=== PATIENT | male | born 1965 | race Caucasian/White ===

== ENCOUNTER 2022-11-09 12:24 | Outpatient (OUT) | payer OTHER, SELFPAY ==
--- NOTE | 2022-11-09 12:45 | XR_ITS ---
The [address] [address] Patient Name: MARKEL ARMENDARIZ MRN: [id number] date: 1965 Sex: M Assigned Patient Location: LAB Current Patient Location: LAB Accession/Order Number: [id number] Exam Date: 11/09/2022 12:35 Report Date: 11/09/2022 13:05 At the request of: MARKIE JARAMILLO Procedure: XR abdomen 1V EXAMINATION: XR abdomen 1V HISTORY: Kidney Stone Z87.442 r COMPARISON: 11/03/2021 FINDINGS: KIDNEY/URETER - RIGHT: 5 mm right pelvic calcification projected over the mid coccyx KIDNEY/URETER - LEFT: No visible renal or ureteral calcifications. PELVIS: No visible ureteral calcifications. Any visible calcifications favor phleboliths. BOWEL: No abnormal dilation or deviation. BONES: No acute abnormality. OTHER: Negative. No abnormal gaseous collections. XR/XR abdomen 1V IMPRESSION: 5 mm right pelvic calcification likely representing progression of a ureteral stone previously observed over the right L4 transverse process Electronically authenticated by: MARLEN RICKS Date: 11/09/2022 13:05
[2022-11-09 15:29] LABS: Prostate Specific Antigen Dx 0.84 ng/mL (<=4.00)
== END 2022-11-09 12:25 | disposition home or self-care (01) ==
LOC: LAB 12:29
PROVIDERS: PCP Family Medicine; Visit Provider Urology
DX: N40.1 Benign prostatic hyperplasia with lower urinary tract symptoms (principal); Z87.442 Personal history of urinary calculi
CPT/HCPCS: 36415; 74018; 84153

== ENCOUNTER 2022-11-17 07:51 | Outpatient (OUT) | payer OTHER, SELFPAY ==
--- NOTE | 2022-11-17 08:07 | XR_ITS ---
The [address] [address] Patient Name: MARKEL ARMENDARIZ MRN: [id number] date: 1965 Sex: M Assigned Patient Location: [place] Current Patient Location: [place] Accession/Order Number: [id number] Exam Date: 11/17/2022 08:20 Report Date: 11/17/2022 09:16 At the request of: MARKIE JARAMILLO Procedure: XR IVP w KUB EXAMINATION: XR IVP w KUB HISTORY: Ureteral Stone N20.1, History Of Kidney Stone Z87.442 COMPARISON: No relevant comparison available. TECHNIQUE: After obtaining patient consent a suture gauger image was obtained followed by injection of 100cc of Omnipaque 300 IV contrast. Immediate nephrographic images were obtained. Corticomedullary and urographic phase images were obtained at 5, 10, 15 and 20 minutes. 15 minute oblique images were also obtained. FINDINGS: KIDNEY/URETER - RIGHT: 6.2 mm calcification distal right ureter. KIDNEY/URETER - LEFT: No visible calcifications. PELVIS: No visible ureteral calcifications. Any visible calcifications favor phleboliths. NEPHROGRAPHIC PHASE: Normal, symmetric size, contour, and orientation. Normal and symmetric time of contrast uptake. CORTICOMEDULLARY: No mass or abnormal appearing medulla, pyramids, or collecting system. UROGRAPHIC PHASE: Normal caliber, course, and number of ureters. BLADDER: Normal size and contour. BOWEL: No abnormal dilation or deviation. BONES: No acute abnormality. OTHER: Negative. No abnormal gaseous collections. XR/XR IVP w KUB IMPRESSION: 6.2 mm distal right ureteral stone with no obstructive uropathy Electronically authenticated by: MARLEN RICKS Date: 11/17/2022 09:16
== END 2022-11-17 07:52 | disposition home or self-care (01) ==
LOC: FL 11-18 08:00
PROVIDERS: PCP Family Medicine; Visit Provider Urology
DX: N20.1 Calculus of ureter (principal); Z87.442 Personal history of urinary calculi
CPT/HCPCS: 74400; Q9967

== ENCOUNTER 2022-11-25 09:47 | Outpatient (OUT) | payer OTHER, SELFPAY ==
--- NOTE | 2022-11-25 09:56 | ECG_ITS ---
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
--- NOTE | 2022-11-25 10:28 | P.GSHP_ITS ---
History of Present Illness History of Present Illness Chief complaint: Right Ureteral Stone Narrative: Patient presents for preadmission testing. Please see HPI from Dr. Muir dated 11/11/2022. Review of Systems ROS Narrative Please see ROS from Dr. Muir dated 11/11/2022. [facility] Medical History (Updated 11/25/22 @ 10:15 by Aida Dunn NP) Surgical History (Updated 11/25/22 @ 10:14 by Aida Dunn NP) Family History (Updated 11/25/22 @ 10:14 by Aida Dunn NP) Other Family history of COPD (chronic obstructive pulmonary disease) Family history of coronary artery disease Family history of heart disease Family history of lung cancer Family history of prostate cancer Family history of stroke Social History (Updated 11/25/22 @ 10:09 by Aida Dunn NP) Within the past year, how often did you have a drink containing alcohol: monthly or less Smoking status: Never smoker Non-prescribed substance use: denies use 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 Highest level of school completed/degree received: Associate degree: occupational, technical, vocational program Meds Home Medications and Allergies Home Medications Medication Instructions Recorded Confirmed Type evolocumab 140 mg/mL subcutaneous 140 mg subcut .every 2 weeks 11/25/22 11/25/22 History pen injector (Geovanni Pond) tamsulosin 0.4 mg capsule 0.4 mg PO Q24H 11/25/22 11/25/22 History zolpidem 10 mg tablet 10 mg PO QPM 11/25/22 11/25/22 History Allergies Allergy/AdvReac Type Severity Reaction Status Date / Time No Known Drug Allergies Allergy Verified 11/25/22 10:06 Exam Narrative Exam Narrative: Constitutional: Awake, alert, comfortable, well-appearing, nontoxic, interactive, vital signs as charted Head: Normocephalic, atraumatic Neck: Supple, normal appearance, normal range of motion, no meningeal signs, no lymphadenopathy Respiratory: No respiratory distress, breath sounds clear Cardiovascular: Regular rate and rhythm, strong and regular heart tones Abdomen: Nontender, normal bowel sounds, soft, no CVA tenderness Musculoskeletal: Normal gait, no swelling or edema Skin: No rashes or induration, no lesions, only visible skin inspected Neuro: No neurological deficits, normal sensation Psychiatric: Oriented ?3, normal affect Assessment and Plan Assessment and Plan (1) Ureteral stone: Plan Cystoscopy, right retrograde, right ureteroscopy, holmium laser, possible right stent placement scheduled with Dr. Muir 12/08/2022.
[2022-11-25 10:57] LABS: Basophils Absolute Auto 0.1 10^3/uL (0.0-0.1); Basophils Percent Auto 1.1 % (0.2-2.0); Eosinophils Absolute Auto 0.1 10^3/uL (0.0-0.7); Eosinophils Percent Auto 1.3 % (0.9-7.0); Hematocrit 44.8 % (42.0-54.0); Immature Granulocytes Abs Auto 0.01 10^3/uL (0.00-0.03); Immature Granulocytes Pct Auto 0.2 % (0.0-0.5); Lymphocytes Absolute Auto 1.2 10^3/uL (1.2-3.8); Lymphocytes Percent Auto 25.1 % (20.5-60.0); Mean Corpuscular HGB Conc 33.5 g/dL (29.9-35.2); Mean Corpuscular Hemoglobin 29.3 pg (25.9-34.0); Mean Corpuscular Volume 87.5 fL (80.0-94.0); Mean Platelet Volume 9.7 fL (9.5-13.5); Monocytes Absolute Auto 0.4 10^3/uL (0.3-0.8); Neutrophils Percent Auto 64.3 % (43.0-75.0); Platelet Count 205 10^3/uL (150-450); Red Blood Count 5.12 10^6/uL (4.70-6.10); Red Cell Distribution Width 12.2 % (11.0-15.0); White Blood Count 4.6 10^3/uL (4.0-11.0)
[2022-11-25 11:02] LABS: Anion Gap 8.6; BUN Creatinine Ratio 14.4; Calcium 8.7 mg/dL (8.5-10.1); Carbon Dioxide 31.8 mmol/L (21.0-32.0); Chloride 105 mmol/L (98-107); Estimated GFR (African America >60 (>=60); Estimated GFR (Non-African Ame >60 (>=60); Glucose 116 mg/dL (74-106); Potassium 4.4 mmol/L (3.5-5.1); Sodium 141 mmol/L (136-145)
[2022-11-25 11:22] LABS: INR 1.13; Prothrombin Time 11.9 sec (9.0-11.6)
== END 2022-11-25 09:48 | disposition home or self-care (01) ==
LOC: PST 09:48
PROVIDERS: PCP Family Medicine; Visit Provider Urology
DX: Z01.810 Encounter for preprocedural cardiovascular examination (principal); Z01.812 Encounter for preprocedural laboratory examination; N20.1 Calculus of ureter; E78.5 Hyperlipidemia, unspecified
CPT/HCPCS: 80048; 85025; 85610; 85730; 93005; G0463

== ENCOUNTER 2022-12-08 08:23 | Day surgery (SDC) | payer OTHER, SELFPAY ==
[2022-11-25 10:21] VITALS: BP 107/69; PULSE 63; RESP 18; TEMP 36.3; O2SAT 96; BMI 31.9
[2022-12-08] VITALS (15 sets, daily range): BP systolic 125–153; BP diastolic 75–96; PULSE 66–90; RESP 10–16; TEMP 36.1–36.3; O2SAT 94–98; BMI 31.8
[2022-12-08] MEDS: LACTATED RINGER'S SOLUTION 1,000 ML 50 ML IV ×2 (08:44→10:40)
[2022-12-08] MEDS: CEFAZOLIN SODIUM/DEXTROSE,ISO 1 GM/50 ML IV.SOLN IV (10:02)
[2022-12-08] MEDS: IOHEXOL 240 MG/ML - 50 ML VIAL INJ (10:42)
--- NOTE | 2022-12-08 10:58 | PM.URSON ---
Urology Surgery Operative Note Operative Note Procedure Date: 12/08/22 Time Out Performed: yes Pre-op Diagnosis: right distal ureteral calculus Post-op Diagnosis: same as pre-op Procedures performed: #1. Cystoscopy. #2. Right rigid ureteral dilation. #3 right ureteroscopy. #4. Holmium laser lithotripsy of large right ureteral calculus. #5. Stone fragments basket extraction. #6. Placement of 6 Bhutanese variable length right ureteral stent Anesthesia: General-LMA Primary Surgeon: Swapnil Muir Complications: none Estimated blood loss (mL): 5 Findings: large right distal ureteral calculus Specimens: right ureteral calculus fragments Drains: 6 Bhutanese variable length right ureteral stent Indications for Procedures: this gentleman was found to have a 5-6 mm right distal ureteral calculus. It is nonobstructing and not causing pain. He now presents for cystoscopy, ureteroscopy, laser and stent placement. He has signed an informed consent after all risks were explained. Detailed description of Procedure: The patient was brought to the operating room and placed on the operating room table in the supine position. SCDs were placed on the lower extremities and turned on and functioning during the entire case. Timeout was done by all parties in the room. We all agreed upon the patient's identification and the planned procedures for this patient. Genn. anesthesia was then administered. The patient was then repositioned into the modified dorsal lithotomy position. All pressure points were satisfactorily padded. Genitalia were sterilely prepped and draped in usual fashion.I started by passing a 22 Bhutanese Olympus cystoscope per urethra and into the bladder. The anterior urethra was normal. The prostatic urethra showed bilobar hypertrophy and a high median lobe. Panendoscopy in the bladder showed no evidence of any stones or tumors. While using fluoroscopy I could see the stone at the S3 level. I then passed a Glidewire through the scope and guided into the ureter and up beyond the stone into the kidney without difficulty. 8 and 10 Bhutanese rigid dilators were used for the distal ureter. Cystoscope was removed. Ureteroscope was passed adjacent to the wire through the urethra into the bladder and into the right ureter. I was able to get right to the stone. I then used a 365 ? holmium laser fiber. I made contact with the stone and did laser lithotripsy at 6 W continuously. The stone was fragmented into several pieces. A 0 tip nitinol basket was used to extract pieces and dumped them in the base of the bladder. Numerous trips up-and-down the ureter were done to get all stone pieces removed from the ureter. The ureteroscope was removed. I passed the cystoscope back into the bladder after removing the wire. I then used a 8 Bhutanese cone-tipped catheter and did a right retrograde pyelogram. This showed that the ureter was not duplicated until it was within the renal pelvis. I then passed a Glidewire through the scope and into the ureter and guided up into the renal pelvis. I then passed a 6 Bhutanese variable length ureteral stent over the wire and into the kidney. The wire was removed and there were good curls in the kidney and in the bladder. The bladder was drained of its contents and the scope was then removed. He was then transferred [facility] and wheeled to PACU in stable condition. He'll be discharged to home later today with a prescription for Vesicare 10 mg daily and Keflex 500 mg daily. We'll get the stent out in one to 2 weeks in the office.
--- NOTE | 2022-12-08 11:12 | PC.NURSE ---
Patient states he doesn't have pain sitting there only when he urinates and he states it valladares.
[2022-12-15 16:12] LABS: Calcium Oxalate Monohydrate 100 % (.)
== END 2022-12-08 11:56 | disposition home or self-care (01) ==
PROVIDERS: PCP Family Medicine; Visit Provider Urology
PROC: (CPT 52356; principal; 2022-12-08 09:35)
DX: N20.1 Calculus of ureter (principal); Z79.899 Other long term (current) drug therapy; N40.1 Benign prostatic hyperplasia with lower urinary tract symptoms; E78.5 Hyperlipidemia, unspecified; R39.11 Hesitancy of micturition; R35.1 Nocturia; Z80.42 Family history of malignant neoplasm of prostate; Z87.442 Personal history of urinary calculi; N39.43 Post-void dribbling; R31.29 Other microscopic hematuria
CPT/HCPCS: 52356; 36415; 74420; 82365; 99999; C1874; J2704; Q9966

== ENCOUNTER 2023-02-10 10:24 | Outpatient (OUT) | payer OTHER, SELFPAY ==
[2023-02-10 10:52] LABS: Basophils Absolute Auto 0.1 10^3/uL (0.0-0.1); Basophils Percent Auto 0.9 % (0.2-2.0); Eosinophils Absolute Auto 0.1 10^3/uL (0.0-0.7); Eosinophils Percent Auto 1.7 % (0.9-7.0); Hematocrit 46.1 % (42.0-54.0); Hemoglobin 15.6 g/dL (14.0-18.0); Immature Granulocytes Abs Auto 0.01 10^3/uL (0.00-0.03); Immature Granulocytes Pct Auto 0.2 % (0.0-0.5); Lymphocytes Absolute Auto 1.3 10^3/uL (1.2-3.8); Lymphocytes Percent Auto 23.7 % (20.5-60.0); Mean Corpuscular HGB Conc 33.8 g/dL (29.9-35.2); Mean Corpuscular Hemoglobin 29.3 pg (25.9-34.0); Mean Corpuscular Volume 86.7 fL (80.0-94.0); Mean Platelet Volume 10.3 fL (9.5-13.5); Monocytes Absolute Auto 0.4 10^3/uL (0.3-0.8); Monocytes Percent Auto 8.3 % (1.7-12.0); Neutrophils Absolute Auto 3.4 10^3/uL (1.4-6.5); Neutrophils Percent Auto 65.2 % (43.0-75.0); Platelet Count 204 10^3/uL (150-450); Red Blood Count 5.32 10^6/uL (4.70-6.10); White Blood Count 5.3 10^3/uL (4.0-11.0)
[2023-02-10 11:09] LABS: Alanine Aminotransferase 48 U/L (16-63); Albumin Globulin Ratio 1.2; Albumin Level 4.1 g/dL (3.4-5.0); Alkaline Phosphatase 68 U/L (46-116); Anion Gap 9.4; Aspartate Amino Transferase 26 U/L (15-37); Bilirubin Total 0.8 mg/dL (0.2-1.0); Calcium 8.8 mg/dL (8.5-10.1); Carbon Dioxide 30.8 mmol/L (21.0-32.0); Chloride 102 mmol/L (98-107); Chol HDL Ratio 4.2; Cholesterol 170 mg/dL (<=200); Estimated GFR (African America >60 (>=60); Estimated GFR (Non-African Ame >60 (>=60); Free T3 2.81 pg/mL (2.18-3.98); Globulin 3.5 g/dL; Glucose 118 mg/dL (74-106); HDL Cholesterol 40 mg/dL (40-60); LDL Cholesterol Calculated 108.2 mg/dL; Potassium 4.2 mmol/L (3.5-5.1); Sodium 138 mmol/L (136-145); Thyroid Stimulating Hormone 3.289 uIU/mL (0.358-3.740); Total Protein 7.6 g/dL (6.4-8.2); Triglycerides 109 mg/dL (<=150); VLDL CHOLESTEROL 21.8 mg/dL
[2023-02-10 11:34] LABS: Estimated Average Glucose 126 mg/dL
[2023-02-10 11:41] LABS: Prostate Specific Antigen Scrn 0.75 ng/mL (<=4.00)
[2023-02-12 14:21] LABS: Insulin 10.6 uIU/mL (2.6-24.9)
== END 2023-02-10 10:25 | disposition home or self-care (01) ==
LOC: LAB 10:26
PROVIDERS: PCP Family Medicine; Visit Provider Family Medicine
DX: Z00.00 Encounter for general adult medical examination without abnormal findings (principal); E78.5 Hyperlipidemia, unspecified; R73.09 Other abnormal glucose; Z12.5 Encounter for screening for malignant neoplasm of prostate
CPT/HCPCS: 36415; 80053; 80061; 83036; 83525; 84436; 84443; 84481; 84550; 85025; G0103

== ENCOUNTER 2023-07-11 12:22 | Outpatient (OUT) | payer OTHER, SELFPAY ==
--- NOTE | 2023-07-11 12:26 | XR_ITS ---
[address] [address] Patient Name: MARKEL ARMENDARIZ MRN: [id number] date: 1965 Sex: M Assigned Patient Location: [facility] Current Patient Location: [facility] Accession/Order Number: [id number] Exam Date: 07/11/2023 12:34 Report Date: 07/11/2023 12:58 At the request of: MARKIE JARAMILLO Procedure: XR abdomen 1V EXAMINATION: XR abdomen 1V HISTORY: N20.0 calculus of kidney COMPARISON: 11/09/2022 FINDINGS: KIDNEY/URETER - RIGHT: No visible renal or ureteral calcifications. KIDNEY/URETER - LEFT: No visible renal or ureteral calcifications. PELVIS: No visible ureteral calcifications. Any visible calcifications favor phleboliths. BOWEL: No abnormal dilation or deviation. BONES: No acute abnormality. OTHER: Negative. No abnormal gaseous collections. XR/XR abdomen 1V IMPRESSION: No definite urinary tract calculi Electronically authenticated by: MARLEN RICKS Date: 07/11/2023 12:58
--- OUTSIDE RECORDS SUMMARY | 2023-07-11 12:33 | XMS_ITS | CCD ---
Author Organization [facility] Care Team Providers Care City Planner Name Role Phone Isaiah Paul Primary Care Physician MICHELLE, DR COLON Admitting Unavailable ANNY, DR COLON Attending Unavailable ANNY, DR COLON Primary Care Unavailable ANNY, DR COLON Consulting Unavailable HOY, DR COLON Admitting Unavailable HOY, DR COLON Attending Unavailable HOY, DR COLON Primary Care Unavailable HOY, DR COLON Consulting Unavailable MUIR, DR ADEN Admitting Unavailable MUIR, DR ADEN Attending Unavailable HOY, DR COLON Primary Care Unavailable MUIR, DR ADEN Consulting Unavailable ZIEBER, DR ALEXANDRA Tapia Consulting Unavailable MD Cuong Reddy Attending Provider [phone] MD Isaiah Paul Primary Care Provider [phone] Isaiah Paul Primary Care Unavailable Cuong Reddy Attending Unavailabl e BarryCuong hood Admitting Unavailabl e RUSHER, MODESTO S Referring Unavailable RUSHER, MODESTO S Attending Unavailable ISAIAH PAUL Referring Unavailable RUSHER, MODESTO S Attending Unavailable MUIRSwapnil Attending Unavailable MUIR, Swapnil Tapia Attending Unavailable MUIR, Swapnil Tapia Referring Unavailable MUIR, Swapnil Tapia Admitting Unavailable MUIRSwapnil Attending Unavailable MUIR, Swapnil Tapia Attending Unavailable MUIR, Swapnil Tapia Attending Unavailable MUIR, Swapnil Tapia Attending Unavailable Allergies Allergy Classification Reported Allergen(s) Allergy Type Date of Onset Reaction(s) Facility (3 sources) Pollen; Translations: [Pollen] Allergy to substance Unknown (qualifier value) [facility] (1 source) No Known Medication Allergies; Translations: [No Known Medication Allergies] Propensity to adverse reactions (disorder) [facility] Repository NEGATED: Highlighted row has been ruled out! (1 source) Drug allergy [facility] NEGATED: Highlighted row has been ruled out! (1 source) Drug allergy [facility] Medications Current Medications Medication Drug Class(es) Dates Sig (Normalized) Sig (Original) Aged Garlic (1 source) Start: 05-09-2022 take 600 mg by mouth once daily Aged Garlic Active 600 MG PO Daily May 09, 2022 12:00am F4-Wyvyf-O10-Coffe e-Phosphatid (Neuriva Plus) 0.85 mg-200 mcg-1.2 mcg Tablet,Chewable (1 source) Start: 05-09-2022 take 1 tablet by mouth once daily J7-Uskwp-N98-Coffe e-Phosphatid (Neuriva Plus) 0.85 mg-200 mcg-1.2 mcg Tablet,Chewable Active 1 TAB PO Daily May 09, 2022 12:00am Berberine-Herbal Comb No.18 (1 source) Start: 05-09-2022 take 1 capsule by mouth three times daily Berberine-Herbal Comb No.18 Active 1 CAP PO Three times daily May 09, 2022 12:00am 1 ml evolocumab 140 mg/ml auto-injector (3 sources) PCSK9 Inhibitor Start: 05-09-2022 inject 140 mg by subcutaneous injection every week Evolocumab (Repatha Sureclick) 140 mg/mL pen injector Active 140 MG SUBCUT every week May 09, 2022 12:00am Start: 10-01-2018 Repatha 140 mg /mL subcutaneous solution 140 mg, SubCutaneous Start Date: 10/01/18 Status: Ordered Ydocbznwukiq-Lyejhqpp-Awnaxp (1 source) Start: 05-09-2022 take 1 tablet by mouth once daily Fmexipkjbxxa-Oxbfheqb-Ghzjxi Active 1 TAB PO Daily May 09, 2022 12:00am tamsulosin hydrochloride 0.4 mg oral capsule (3 sources) alpha-Ad renergic Karie Start: 11-08-2021 take 0.4 mg by mouth at bedtime Tamsulosin Active 0.4 MG PO Bedtime May 09, 2022 12:00am thioctic acid 300 mg oral capsule (1 source) Start: 05-09-2022 take 300 mg by mouth twice daily Alpha Lipoic Acid Active 300 MG PO Twice daily May 09, 2022 12:00am Tumeric (1 source) Start: 05-09-2022 take 1.44 g by mouth twice daily Tumeric Active 1.44 GM PO Twice daily May 09, 2022 12:00am ubidecarenone 200 mg oral capsule (1 source) Start: 05-09-2022 Coenzyme Q10 (Co Q-10) 200 m g Capsule Active 200 MG PO Daily May 09, 2022 12:00am Ultimet 16 Strai Probiotic (1 source) Start: 05-09-2022 Ultimet 16 Strai Probiotic Active 3.2 billion cells PO Daily May 09, 2022 12:00am Vit G-A-P8-Uh-G01-JlhabY49-Eiyfm-Lcuhqt (1 source) Start: 05-09-2022 take 1 tablet by mouth once daily Vit H-B-C5-Yu-T86-QlmjeX47-Kckvv-Wonksg Active 1 TAB PO Daily May 09, 2022 12:00am zolpidem tartrate 10 mg oral tablet (3 sources) gamma-Am inobutyr ic Acid-erg ic Agonist Start: 05-09-2022 take 10 mg by mouth at bedtime Zolpidem Active 10 MG PO Bedtime May 09, 2022 12:00am Start: 09-28-2020 zolpidem Once a day (at bedtime), Refills(s) 0 Start Date: 09/28/20 Status: Ordered Problems Problem Classification Problem Date Documented Date Episodic/Chronic Calculus of urinary tract (9 sources) History of calculus of kidney; Translations: [Personal history of urinary calculi] Onset: 11-05-2021 Episodic Disorders of lipid metabolism (2 sources) Hyperlipidemia 10-01-2018 Chronic Genitourinary symptoms and ill-defined conditions (2 sources) Post-micturition incontinence 09-30-2019 Chronic Genitourinary symptoms and ill-defined conditions (8 sources) Delay when starting to pass urine; Translations: [Microscopic hematuria] 08-28-2018 Episodic Hyperplasia of prostate (5 sources) Benign prostatic hypertrophy with outflow obstruction; Translations: [Benign prostatic hyperplasia with lower urinary tract symptoms] Onset: 11-05-2021 Chronic Other male genital disorders (2 sources) Impotence 10-01-2018 Chronic Other screening for suspected conditions (not mental disorders or infectious disease) (7 sources) Encounter for screening for malignant neoplasm of prostate; Translations: [Elevated prostate specific antigen [PSA]] Onset: 11-03-2021 Episodic Residual codes; unclassified (2 sources) Family history of cancer; Translations: [Family history of malignant neoplasm of prostate] Onset: 11-08-2021 Episodic Residual codes; unclassified (2 sources) Family history of prostate cancer 11-08-2021 Episodic Unclassified (1 source) Encounter for screening for malignant neoplasm of colon; Translations: [Encounter for screening for malignant neoplasm of colon] Onset: 05-09-2022 Results Test Name Value Interpretation Reference Range Facility MR FOOT RIGHT WO IV CONTRAST on 01-23-2023 MR FOOT RIGHT WO IV CONTRAST EXAM: MR FOOT RIGHT WO IV CONTRAST HISTORY: Chronic heel pain TECHNIQUE: Multisequence multiplanar MRI of the hindfoot was performed without contrast COMPARISON: None available at time of interpretation. FINDINGS: Mild Achilles tendinosis. Thickening of the medial cord plantar fascia with thickness measuring up to 8 mm. Mild soft tissue edema adjacent to the medial cord plantar fascia and mild bone marrow edema of the calcaneus at its attachment. Small plantar calcaneal enthesophyte. The tibialis posterior, flexor hallucis longus, and flexor digitorum longus tendons are intact. No space-occupying lesion within the tarsal tunnel. Focal split tear of peroneus brevis tendon along the inferior tip of the lateral malleolus. Mild peroneus longus tendinosis. Extensor tendons are intact. The anterior and posterior tibiofibular ligaments, anterior and posterior talofibular ligaments, and calcaneofibular ligament are intact. Superficial and deep fibers of the deltoid ligament are intact. Spring ligament is intact. Sinus tarsi fat is preserved. Mild degenerative changes of the midfoot. No ankle joint effusion. No evidence of fracture or stress reaction of the visualized bones. IMPRESSION: Findings compatible with planter fasciitis. Mild Achilles tendinosis. Focal split tear of peroneus brevis tendon along the inferior tip of the lateral malleolus. ELECTRONICALLY SIGNED BY: DO Get Flores Not Available Consent for Procedure/Surger yon 12-20-2022 Consent for Procedure/Surgery [id number] #1.00TIFF Normal [facility] Consent for Treatmenton 12-11 Consent for Treatment [id number] #1.00TIFF Normal [facility] IntraOperative Documentson 1 IntraOperative Documents [id number] #1.00TIFF Normal [facility] Main OR Intraoperative Recor don 12-20-2022 Main OR Intraoperative Record IntraOp Document Type FTURO Summary Primary Physician: Swapnil MUIR MD Finalized Date/Time: 12/20/22 09:00:22 Pt. Name: MARKEL ARMENDARIZ /Sex: 1965 Male Med Rec #: [id number] Physician: Swapnil MUIR MD Financial #: [id number] Pt. Type: O Room/Bed: / Admit/Disch: 12/20/22 07:42:04 - Institution: Case Times FTURO Entry 1 Patient Times In Room 12/20/22 08:34:00 Out Room 12/20/22 08:57:00 Procedure Times Start 12/20/22 08:50:00 Stop 12/20/22 08:53:00 Anesthesia Times Last Modified By: Iram Silva RN 12/20/22 08:58:24 Case Attendance FTURO Entry 1 Entry 2 Entry 3 Case Attendee Swapnil MUIR MD WEB SERVICES DEVELOPER, Iram Silva RN, Iram Abdalla Role Performed Surgeon - Primary Scrub - Primary Drop Wire Stringer - Primary Time In 12/20/22 08:34:00 12/20/22 08:34:00 12/20/22 08:34:00 Time Out 12/20/22 08:57:00 12/20/22 08:57:00 12/20/22 08:57:00 Procedure CYSTOSCOPY LOCAL WITH CYSTOSCOPY LOCAL WITH CYSTOSCOPY LOCAL WITH STENT REMOVAL(Right) STENT REMOVAL(Right) STENT REMOVAL(Right) Comments Last Modified By: Shira SIMMONS, Iram Silva RN, Iram Pederson RN 12/20/22 08:58:25 12/20/22 08:58:25 12/20/22 08:58:25 Surgical Procedures FTURO Entry 1 Procedure Description Procedure CYSTOSCOPY LOCAL WITH Modifiers Right STENT REMOVAL Surgeon Description CYSTOSCOPY WITH RIGHT STENT REMOVAL Primary Procedure Yes Primary Surgeon Swapnil MUIR MD Start 12/20/22 08:50:00 Stop 12/20/22 08:53:00 Anesthesia Type Local Surgical Service Urology Wound Class 2 - Clean-Contaminated Last Modified By: Iram Silva RN 12/20/22 08:58:29 General Case Data FTURO Pre-Care Text: Classifies surgical wound, implements aseptic technique, initiates traffic control Entry 1 Case Information OR URO 1 FT Case Level None Wound Class 2 - Clean-Contaminated Specialty Urology Preop Diagnosis STATUS POST RIGHT STENT Postop Same As Preop Yes PLACEMENT Postop Diagnosis STATUS POST RIGHT STENT Outcomes Met? Yes PLACEMENT Last Modified By: Iram Silva RN 12/20/22 08:36:04 Post-Care Text: The patient is free from signs and symptoms of infection EU IntraOp - FTURO Pre-Care Text: Implements protective measures prior to operative or invasive procedure, confirms identity before the operative or invasive procedure, verifies operative procedure, surgical site, and laterality Entry 1 EU Perioperative Protocols Procedure(s) CYSTOSCOPY LOCAL WITH Patient Identity Birthday, ID Band STENT REMOVAL(Right) Verified (select at Check, Patient least 2): Participation Consents / H and P HandP, Surgery/Procedure Operative Site Present Verified Consent Marking Verified Surgical Site Yes Laterality Verified Yes Verified Procedure Verified Yes Correct Patient Yes Position Verified Availability Equipment, Medication Time Out Swapnil MUIR MD, Verified (If Participants Iram Dietz CST Applicable) Shira Carolina RN, Kimberly Y Time Out Complete 12/20/22 08:36:00 Allergies Reviewed? Yes Allergies Reviewed Self/Patient With Body Position Supine Prep Area PENIS Prep Agents Betadine Solution Skin. Condition Dry, Warm, Unable to Description UNABLE TO VISUAALIZE Visualize DUE TO PATIENT PARTIALLY CLOTHED Additional None Specimens Collected Vitals - EU Blood Pressure 138/78 Pulse 86 bpm Respirations 16 br/min SPO2 96 % EBL 0 IandO - EU Total Intake 0 Total Output 0 Outcomes Met? Yes Last Modified By: Iram Silva RN 12/20/22 08:38:05 Post-Care Text: The patient is free from signs and symptoms of injury caused by extraneous objects Sign Out FTURO Entry 1 Before Patient Leaves OR Nurse verbally Yes Nurse verbally Yes confirms with the confirms with the team the name of team that the procedure(s) instrument, sponge, recorded and needle counts are correct (or N/A) Nurse verbally n/a Nurse verbally Yes confirms with the confirms with the team how the team whether there specimen is labeled are any equipment (including patient problems to be name), if applicable addressed Sign Out Complete 12/20/22 08:53:00 Last Modified By: Iram Silva RN 12/20/22 08:59:55 Case Comments Finalized By: Iram Silva RN Document Signatures Signed By: Iram Silva RN 12/20/22 09:00 Normal [facility] Main OR Preoperative Recordo n 12-20-2022 Main OR Preoperative Record Holding Area Document Type FTURO Summary Primary Physician: Swapnil MUIR MD Finalized Date/Time: 12/20/22 08:35:03 Pt. Name: DERRELLNildaMARKEL./Sex: 1965 Male Med Rec #: [id number] Physician: Swapnil MUIR MD Financial #: [id number] Pt. Type: O Room/Bed: / Admit/Disch: 12/20/22 07:42:04 - Institution: Case Times Holding FTURO Pre-Care Text: Verifies consent for planned procedure, identifies individual values and wishes concerning care, includes family members in perioperative teaching Secures patient's records' belongings, and valuables, maintains patient's dignity and privacy, and maintains patient confidentiality Entry 1 In Holding 12/20/22 08:02:00 Outcomes Met? Yes Last Modified By: Yuko Keane LPN 12/20/22 08:03:13 Post-Care Text: The patient participates in decisions affecting his or her perioperative plan of care The patient's right to privacy is maintained Surgery Checklist FTURO Entry 1 Patient Birthday, ID Band Procedure Surgical Consent, With Identification: Check, Patient Verification: Patient Participation NPO after Midnight: n/a Date/Time: 12/20/22 08:05:00 Personal Items: Glasses, Jewelry Personal Items glasses, wedding band, Comment: watch Complaints of Pain: Yes Pain Comment: slight discomfort right flank Skin Integrity Intact, [place], Warm, & Dry Vitals - EU Blood Pressure 138/78 Pulse 86 bpm Respirations 16 br/min SPO2 96 % RN Reviewed Yes Last Modified By: Iram Silva RN 12/20/22 08:35:01 General Comments: Temp 98.1 Finalized By: Iram Silva RN Document Signatures Signed By: Yuko Keane LPN 12/20/22 08:08 Iram Silva RN 12/20/22 08:35 Normal [facility] Operative Reporton 3 Operative Report Patient: MARKEL ARMENDARIZ Age: 57 years Sex: Male : 1965 Associated Diagnoses: None Author: Swapnil MUIR MD Procedure Operative Information Details: Date/ Time: 12/20/2022 08:46:00. Pre-Op Dx: Foreign Body in Bladder - T19.1XXA. Post-Op Dx: Same. Anesthesia Type: Local. Procedure: Local Cystoscopy with Stent Removal. Complications: None. Risks/Benefits/Infor med Consent: Surgical risks, benefits, details of the procedure have been explained to the patient, Full informed consent has been obtained. Intraoperative Information Prepped: The patient was placed in supine position, The patient was prepped with the Betadine solution. Anesthesia: 2% Xylocaine Jelly per urethra. Procedure: Cystoscopy and Right Stent Removal, The flexible Cystoscope was passed in retrograde fashion into the bladder without difficulty, The bladder was viewed in entirety and found to be without tumors or stones, Mild inflammation was seen surrounding the orifice with the stent seen protruding from it, The stent was then grasped and removed in its entirety. Specimens Removed: None. Devices Implanted: None. Postoperative Information Discharge: The patient tolerated the procedure well and was subsequently discharged home. Normal [facility] Comment on above: Result Comment: Elec tronically Signed By: Swapnil MUIR MD\.br\Date and Time Signed: 12/20/22 08:47 EDT Lab Reportson 12-19-2022 Lab Reports [id number] #1.00TIFF Normal [facility] Formson 12-16-2022 Forms [id number] #1.00TIFF [facility] Insurance Correspondenceon 1 Insurance Correspondence [id number] 2#1.00CD:127 [facility] Operative Reporton Operative Report [id number] #1.00CD:127 [facility] Pre-Certification Formon Pre-Certification Form [id number] #1.00CD:127 [facility] Lab Reportson 11-28-2022 Lab Reports [id number] #1.00CD:127 [facility] Insurance Correspondenceon 0 11-25-2022 Insurance Correspondence [id number] 8#1.00CD:127 [facility] Consent for Procedure/Surger yon 11-22-2022 Consent for Procedure/Surgery [id number]# 1.00CD:127 [facility] Lab Reportson 11-20-2022 Lab Reports [id number] #1.00CD:127 [facility] RAD - MISCon 11-20-2022 RAD - MISC [id number]# 1.00CD:127 [facility] RAD - MISC [id number] #1.00CD:127 [facility] Lab Reportson 11-14-2022 Lab Reports [id number] #1.00CD:127 [facility] RAD - MISCon 11-14-2022 RAD - MISC [id number] #1.00CD:127 Normal [facility] Ambulatory Visit Summaryon 0 11-11-2022 Ambulatory Visit Summary MARKEL ARMENDARIZ :1965 Visit Date:11/11/2022 Ambulatory Visit Instructions Your Diagnosis BPH with urinary obstruction Ureteral stone History of kidney stones Family history of prostate cancer Tests Performed Urnls Dip Stick Auto w/o Microscopy POC 13243 XR IVP -- Results Pending -- Please visit your patient portal for your results or contact your primary care physician. Your Care Team Attending Physician - Swapnil MUIR MD Primary Care Physician - Isaiah Paul MD This Is Your Medications List tamsulosin (Flomax 0.4 mg Cap) Contact prescribing physician if questions or concerns evolocumab (Repatha 140 mg/mL subcutaneous solution) zolpidem Procedures Performed ESWL - Extracorporeal shockwave lithotripsy for renal calculus (01/08/2015), Lithotripsy using laser (04/21/2005), Cystoscopy (11/03/2004), Hernia repair, Thumb surgery. Discharge Vitals Heart Rate (Peripheral) 68 Respiratory Rate 16 Blood Pressure 132/74 Height 180 cm Height 71 in Weight 106.2 kg Weight 233.64 lb BMI 32.78 What to do next You Need to Schedule the Following Appointments Follow Up with CLINT TIM, JULISSA Rehman When: Comments: Will call pt w/ IVP results. Where: [facility] [address] , [place] [address]- Medications What How Much When Instructions Unchanged tamsulosin (Flomax 0.4 mg Cap) 1 Capsules By Mouth Every day Take one tab qhs daily Unchanged evolocumab (Repatha 140 mg/ mL subcutaneous solution) 140 Milligram Subcutaneous Contact prescribing physician if questions or concerns Unchanged zolpidem Once a day (at bedtime) Contact prescribing physician if questions or concerns Test Results Urnls Dip Stick Auto w/o Microscopy POC 94887 (11/11/2022) Bilirubin Urine Dipstick - Negative Blood Urine Dipstick - Negative Glucose Urine Dipstick - Negative Ketones Urine Dipstick - Negative Leukocytes Urine Dipstick - Negative Nitrite Urine Dipstick - Negative Protein Urine Dipstick - Negative Specific [place] Urine Dipstick - 1.010 Urine Appearance Urine Dipstick - Clear Urine Color Urine Dipstick - Yellow Urobilinogen Urine Dipstick - Normal 0.2-1 EU/dl pH Urine Dipstick - 6 Allergies No Known Medication Allergies Pollen (Unknown) Problems Ongoing - Any problem that you are currently receiving treatment for. BPH with urinary obstruction Calciuria Family history of prostate cancer History of kidney stones History of renal stone Hyperlipidemia Impotence Microscopic hematuria Nocturia Post-void dribbling Ureteral stone Urinary hesitancy Education Materials Dietary Guidelines to Help Prevent Kidney Stones Kidney stones are deposits of minerals and salts that form inside your kidneys. Your risk of developing kidney stones may be greater depending on your diet, your lifestyle, the medicines you take, and whether you have certain medical conditions. Most people can lower their chances of developing kidney stones by following the instructions below. Your dietitian may give you more specific instructions depending on your overall health and the type of kidney stones you tend to develop. What are tips for following this plan? Reading food labels ? Choose foods with no salt added or low-salt labels. Limit your salt (sodium) intake to less than 1,500 mg a day. ? Choose foods with calcium for each meal and snack. Try to eat about 300 mg of calcium at each meal. Foods that contain 200?500 mg of calcium a serving include: ? 8 oz (237 mL) of milk, calcium-fortifiednon -dairy milk, and calcium-fortifiedfru it juice. Calcium-fortified means that calcium has been added to these drinks. ? 8 oz (237 mL) of kefir, yogurt, and soy yogurt. ? 4 oz (114 g) of tofu. ? 1 oz (28 g) of cheese. ? 1 cup (150 g) of dried figs. ? 1 cup (91 g) of cooked broccoli. ? One 3 oz (85 g) can of sardines or mackerel. Most people need 1,000?1,500 mg of calcium a day. Talk to your dietitian about how much calcium is recommended for you. Shopping ? Buy plenty of fresh fruits and vegetables. Most people do not need to avoid fruits and vegetables, even if these foods contain nutrients that may contribute to kidney stones. ? When shopping for convenience foods, choose: ? Whole pieces of fruit. ? Pre-made salads with dressing on the side. ? Low-fat fruit and yogurt smoothies. ? Avoid buying frozen meals or prepared deli foods. These can be high in sodium. ? Look for foods with live cultures, such as yogurt and kefir. ? Choose high-fiber grains, such as whole-wheat breads, oat bran, and wheat cereals. Cooking ? Do not add salt to food when cooking. Place a salt shaker on the table and allow each person to add his or her own salt to taste. ? Use vegetable protein, such as beans, textured vegetable protein (TVP), or tofu, instead of meat in pasta, casseroles (more content not included)... Normal [facility] Patient Educationon 11-12-19 Patient Education Nephrology Dietary Guidelines to Help Prevent Kidney Stones Kidney stones are deposits of minerals and salts that form inside your kidneys. Your risk of developing kidney stones may be greater depending on your diet, your lifestyle, the medicines you take, and whether you have certain medical conditions. Most people can lower their chances of developing kidney stones by following the instructions below. Your dietitian may give you more specific instructions depending on your overall health and the type of kidney stones you tend to develop. What are tips for following this plan? Reading food labels ? Choose foods with no salt added or low-salt labels. Limit your salt (sodium) intake to less than 1,500 mg a day. ? Choose foods with calcium for each meal and snack. Try to eat about 300 mg of calcium at each meal. Foods that contain 200?500 mg of calcium a serving include: ? 8 oz (237 mL) of milk, calcium-fortifiednon -dairy milk, and calcium-fortifiedfru it juice. Calcium-fortified means that calcium has been added to these drinks. ? 8 oz (237 mL) of kefir, yogurt, and soy yogurt. ? 4 oz (114 g) of tofu. ? 1 oz (28 g) of cheese. ? 1 cup (150 g) of dried figs. ? 1 cup (91 g) of cooked broccoli. ? One 3 oz (85 g) can of sardines or mackerel. Most people need 1,000?1,500 mg of calcium a day. Talk to your dietitian about how much calcium is recommended for you. Shopping ? Buy plenty of fresh fruits and vegetables. Most people do not need to avoid fruits and vegetables, even if these foods contain nutrients that may contribute to kidney stones. ? When shopping for convenience foods, choose: ? Whole pieces of fruit. ? Pre-made salads with dressing on the side. ? Low-fat fruit and yogurt smoothies. ? Avoid buying frozen meals or prepared deli foods. These can be high in sodium. ? Look for foods with live cultures, such as yogurt and kefir. ? Choose high-fiber grains, such as whole-wheat breads, oat bran, and wheat cereals. Cooking ? Do not add salt to food when cooking. Place a salt shaker on the table and allow each person to add his or her own salt to taste. ? Use vegetable protein, such as beans, textured vegetable protein (TVP), or tofu, instead of meat in pasta, casseroles, and soups. Meal planning ? Eat less salt, if told by your dietitian. To do this: ? Avoid eating processed or pre-made food. ? Avoid eating fast food. ? Eat less animal protein, including cheese, meat, poultry, or fish, if told by your dietitian. To do this: ? Limit the number of times you have meat, poultry, fish, or cheese each week. Eat a diet free of meat at least 2 days a week. ? Eat only one serving each day of meat, poultry, fish, or seafood. ? When you prepare animal protein, cut pieces into small portion sizes. For most meat and fish, one serving is about the size of the palm of your hand. ? Eat at least five servings of fresh fruits and vegetables each day. To do this: ? Keep fruits and vegetables on hand for snacks. ? Eat one piece of fruit or a handful of berries with breakfast. ? Have a salad and fruit at lunch. ? Have two kinds of vegetables at dinner. ? Limit foods that are high in a substance called oxalate. These include: ? Spinach (cooked), rhubarb, beets, sweet potatoes, and Vincentian chard. ? Peanuts. ? Potato chips, burundian fries, and baked potatoes with skin on. ? Nuts and nut products. ? Chocolate. ? If you regularly take a diuretic medicine, make sure to eat at least 1 or 2 servings of fruits or vegetables that are high in potassium each day. These include: ? Avocado. ? Banana. ? Raritan, prune, carrot, or tomato juice. ? Baked potato. ? Cabbage. ? Beans and split peas. Lifestyle ? Drink enough fluid to keep your urine pale yellow. This is the most important thing you can do. Spread your fluid intake throughout the day. ? If you drink alcohol: ? Limit how much you use to: ? 0?1 drink a day for women who are not . ? 0?2 drinks a day for men. ? Be aware of how much alcohol is in your drink. In the [place] one drink equals one 12 oz bottle of beer (355 mL), one 5 oz glass of wine (148 mL), or one 1? oz glass of hard liquor (44 mL). ? Lose weight if told by your health care provider. Work with your dietitian to find an eating plan and weight loss strategies that work best for you. General information ? Talk to your health care provider and dietitian about taking daily supplements. You may be told the following depending on your health and the cause of your kidney stones: ? Not to take supplements with vitamin C. ? To take a calcium supplement. ? To take a daily probiotic supplement. ? To take other supplements such as magnesium, fish oil, or vitamin B6. ? Take [id number] and prescription medicines only as told by your health care provider. These include supplements. What foods should I limit? Limit your in (more content not included)... Normal [facility] [place] Urology Office/Clinic Noteon 11-11-2022 Urology Office/Clinic Note Chief Complaint 1yr PSA HPI Staff 1 year f/u with KUB and PSA. Previous dx of BPH with urinary obstruction, hx of kidney stones (ESWL 01/08/15) and family hx of prostate cancer (grandfather). Current PSA done 11/09/22 is 0.84 and previous done 12/17/21 was 0.81. Current KUB done 11/09/22 showed a 5mm right pelvic calcification likely representing progression of a ureteral stone previously observed over the right L4 transverse process. Flomax 0.4mg QD therapy. Denies flank pain. Denies visible blood in urine. Denies urinary complaints with Flomax therapy. History of Present Illness Tests reviewed: reviewed UA, PSA and KUB. I have reviewed the previous health record information and history for this patient from . I have reviewed and verified the staff HPI to be accurate for this encounter. There have been no associated fever, chills, flank pain, or blood in the urine. Denies any urinary infections since last encounter. Review of Systems PHQ Score Initial Depression Screen Score: 0 ROS - Provider Constitutional: denies weight loss, denies hot flashes. Eyes: denies eye problems. Gastrointestinal: denies nausea, denies vomiting. Cardiovascular: denies chest pain or angina. Integumentary: no dryness Musculoskeletal: denies musculoskeletal symptoms. ENMT: denies otolaryngeal symptoms. Respiratory: no shortness of breath. Heme/Lymph: denies easy bleeding tendency, denies easy bruising tendency. Psychiatric: no confusion, no anxiety. Genitourinary: See HPI. Physical Exam Vitals & Measurements HR: 68(Peripheral) RR: 16 BP: 132/74 HT: 71 in HT: 180 cm WT: 106.2 kg WT: 233.64 lb BMI: 32.78 General Appearance: alert, no distress, well nourished, well developed male. Assessment/Plan 1. BPH with urinary obstruction (N40.1: Benign prostatic hyperplasia with lower urinary tract symptoms) PSA 09/24/20 - 1.48 11/03/21 - 0.80 12/17/21 - 0.81 11/09/22 - 0.84 Continues Tamsulosin 0.4mg QD therapy, pt taking at night due to daytime dizziness. Pt states that he has noticed his sinuses being stuffy. Advised that this may be caused by the Flomax. Advised the only way to tell is to stop the Flomax, advised pt to wait to do this bc the Flomax will help him pass his stone. UA today is negative for blood and infection. Discussed PSA levels w/pt, low and stable. Overall doing well with urination and will continue to monitor. Follow up in 1 yr w/PSA. All questions/concerns were discussed. Pt to call the office if he encounters any issues prior. Pt acknowledges understanding. -Will order PSA for 1 yr. 2. Ureteral stone (N20.1: Calculus of ureter) KUB 11/09/22 - 5mm right pelvic calcification likely representing progression of a ureteral stone previously observed over the right L4 transverse process. Pt states he does not have any pain on the Rt, states he felt some slight twinges on the Lt, and denies any blood in his urine. Discussed having a repeat image done due to the placement of the stone. -Will order XR IVP. Will call pt with results. 3. History of kidney stones (Z87.442: Personal history of urinary calculi) S/p Lithotripsy using laser 04/21/05 S/p ESWL 01/08/15 KUB 11/03/21 - no appreciable urinary tract calculi. Pt denies any stone issues since previous encounter. Pt stopped taking Chlorthalidone, states his blood sugar increased when taking medication. Pt aware that is a possible side effect. See #2 4. Family history of prostate cancer (Z80.42: Family history of malignant neoplasm of prostate) Pt states his grandfather. Follow-up With When Contact Information CLINT TIM, JUILSSA Rehman In 1 year [facility] [address], [place] [address]- Additional Instructions: w/ PSA Patient Education Dietary Guidelines to Help Prevent Kidney Stones I, Matilda Torres , personally scribed for Dr. Muir on 11/11/2022 10:44:13. . Documentation recorded by the scribe, Matilda Torres, accurately reflects the services(s) I performed and decisions made by me. Problem List/Past Medical History Ongoing BPH with urinary obstruction Calciuria Family history of prostate cancer History of kidney stones History of renal stone Hyperlipidemia Impotence Microscopic hematuria Nocturia Post-void dribbling Ureteral stone Urinary hesitancy Historical No qualifying data Procedure/Surgical History ESWL - Extracorporeal shockwave lithotripsy for renal calculus (01/08/2015), Lithotripsy using laser (04/21/2005), Cystoscopy (11/03/2004), Hernia repair, Thumb surgery. Medications Flomax 0.4 mg Cap, 0.4 mg= 1 cap(s), Oral, Daily, 3 refills Repatha 140 mg/mL subcutaneous solution, 140 mg, SubCutaneous zolpidem, Once a day (at bedtime) Allergies No Known Medication Allergies Pollen (Unknown) Social History Alcohol - Low Risk, 10/01/2018 Current, Liquor, 1-2 times per year, 10/01/2018 Substa (more content not included)... Normal [facility] Comment on above: Result Comment: Elec tronically Signed By: CLINT TIM, Swapnil Tapia\.br\Date and Time Signed: 11/11/22 10:47 EDT\.br\Electronically Co-Signed By: Matilda Torres\.br\Date and Time Co-Signed: 11/11/22 10:44 EDT INSULINon 12-18-2021 Insulin 7.5 uIU/mL Normal 2.6-24.9 [facility] Comment on above: Performed By: #### I NSULIN #### [facility] [address] [place] [address] Dr. Gabby Park CBC AUTO DIFFon 12-17-2021 BASO # 0.1 103/ul Normal 0.0-0.1 [facility] Comment on above: Performed By: #### C BC #### [facility] [address] [place] [address] Dr. Gabby Park Basophils/100 WBC (Bld) 1.0 % Normal 0.2-2.0 [facility] Comment on above: Performed By: #### C BC #### [facility] [address] [place] [address] Dr. Gabby Park EO # 0.1 103/ul Normal 0.0-0.7 [facility] Comment on above: Performed By: #### C BC #### [facility] [address] [place] [address] Dr. Gabby Park Eosinophils/100 WBC (Bld) 2.2 % Normal 0.9-7.0 [facility] Comment on above: Performed By: #### C BC #### [facility] [address] [place] [address] Dr. Gabby Park Erythrocyte distribution width (RBC) [Ratio] 12.4 % Normal 11.0-15.0 [facility] Comment on above: Performed By: #### C BC #### [facility] [address] [address] [address] Gabby Park Hematocrit (Bld) [Volume fraction] 44.7 % Normal 42.0-54.0 [facility] Comment on above: Performed By: #### C BC #### [facility] [address] [address] [address] Gabby Park Hemoglobin (Bld) [Mass/Vol] 15.4 g/dL Normal 14.0-18.0 [facility] Comment on above: Performed By: #### C BC #### [facility] [address] [place] [address] Dr. Gabby Park IG # 0.01 10e3/ul Normal 0.00-0.03 [facility] Comment on above: Performed By: #### C BC #### [facility] [address] [place] [address] Dr. Gabby Park IG % 0.2 % Normal 0.0-0.5 [facility] Comment on above: Performed By: #### C BC #### [facility] [address] [place] [address] Dr. Gabby Park LYMPH # 1.0 103/ul Critically low 1.2-3.[address] [facility] Comment on above: Performed By: #### C BC #### [facility] [address] [place] [address] Dr. Gabby Park Lymphocytes/100 WBC (Bld) 19.0 % Critically low 20.5-60.0 [facility] Comment on above: Performed By: #### C BC #### [facility] [address] [place] [address] Dr. Gabby Park MANUAL DIFF REQ NO Normal [facility] Comment on above: Performed By: #### C BC #### [facility] [address] [place] [address] Dr. Gabby Park MCH (RBC) [Entitic mass] 30.1 pg Normal 25.9-34.0 [facility] Comment on above: Performed By: #### C BC #### [facility] [address] [place] [address] Dr. Gabby Park MCHC (RBC) [Mass/Vol] 34.5 g/dL Normal 29.9-35.[address] [facility] Comment on above: Performed By: #### C BC #### [facility] [address] [place] [address] Dr. Gabby Park MCV (RBC) [Entitic vol] 87.5 fL Normal 80.0-94.[address] [facility] Comment on above: Performed By: #### C BC #### [facility] [address] [place] [address] Dr. Gabby Park MONO # 0.4 103/ul Normal 0.3-0.[address] [facility] Comment on above: Performed By: #### C BC #### [facility] [address] [place] [address] Dr. Gabby Park Monocytes/100 WBC (Bld) 8.2 % Normal 1.7-12.[address] [facility] Comment on above: Performed By: #### C BC #### [facility] [address] [place] [address] Dr. Gabby Park NEUT # 3.5 103/ul Normal 1.4-6.[address] [facility] Comment on above: Performed By: #### C BC #### [facility] [address] [place] [address] Dr. Gabby Park Neutrophils/100 WBC (Bld) 69.4 % Normal 43.0-75.[address] [facility] Comment on above: Performed By: #### C BC #### [facility] [address] [place] [address] Dr. Gabby Park Platelet mean volume (Bld) [Entitic vol] 9.9 fL Normal 9.5-13.[address] [facility] Comment on above: Performed By: #### C BC #### [facility] [address] [place] [address] Dr. Gabby Park PLT 233 103/ul Normal 150-[address] [facility] Comment on above: Performed By: #### C BC #### [facility] [address] [place] [address] Dr. Gabby Park RBC 5.11 106/ul Normal 4.70-6.10 [facility] Comment on above: Performed By: #### C BC #### [facility] [address] [place] [address] Dr. Gabby Park WBC 5.1 103/ul Normal 4.0-11.0 [facility] Comment on above: Performed By: #### C BC #### [facility] [address] [place] [address] Dr. Gabby Park GLYCOHEMOGLOBIN A1Con 2021 ADA RECOMMENDATION SEE BELOW Normal [facility] Comment on above: Result Comment: ADA RECOMMENDED LIMIT 4.0 - 6.0 ADA THERAPEUTIC TARGET < 7.0 ACTION SUGGESTED > 7.0 Performed By: #### A 1C #### [facility] [address] [place] [address] Dr. Gabby Park Glucose [Mass/Vol] 105 mg/dL Normal [facility] Comment on above: Performed By: #### A 1C #### [facility] [address] [place] [address] Dr. Gabby Park HbA1c (Bld) [Mass fraction] 5.3 % Normal 4.5-6.2 [facility] Comment on above: Performed By: #### A 1C #### [facility] [address] [place] [address] Dr. Gabby Park LIPID PROFILEon 12-17-2021 CHOL-HDL RATIO NORM SEE BELOW Normal [facility] Comment on above: Result Comment: 3.3 - 4.4 LOW RISK 4.4 - 7.1 AVERAGE RISK 7.1 - 11.0 MODERATE RISK >11.0 HIGH RISK Performed By: #### C MP, LIPID #### [facility] [address] [address] [address] Gabby Park Cholesterol [Mass/Vol] 142 mg/dL Normal <=200 [facility] Comment on above: Performed By: #### C MP, LIPID #### [facility] [address] [place] [address] Dr. Gabby Park Cholesterol in HDL [Mass/Vol] 41 mg/dL Normal 40-60 [facility] Comment on above: Performed By: #### C MP, LIPID #### [facility] [address] [address] [address] Gabby Park Cholesterol in LDL [Mass/Vol] 88.2 mg/dL Normal [facility] Comment on above: Performed By: #### C MP, LIPID #### [facility] [address] [address] [address] Gabby Park Cholesterol.total/Cho lesterol in HDL [Mass ratio] 3.5 {ratio} Normal [facility] Comment on above: Performed By: #### C MP, LIPID #### [facility] [address] [address] [address] Gabby Park HDL NORMAL > or = 60 mg/dl - LOW CARDIOVASCULAR RISK <40 mg/dl - HIGH CARDIOVASCULAR RISK Normal [facility] Comment on above: Performed By: #### C MP, LIPID #### [facility] [address] [place] [address] Dr. Gabby Park LDL CALC NORMAL SEE BELOW Normal [facility] Comment on above: Result Comment: <100 mg/dl OPTIMAL 100 - 129 mg/dl NEAR OR ABOVE OPTIMAL 130 - 159 mg/dl BORDERLINE HIGH 160 - 189 mg/dl HIGH >190 mg/dl VERY HIGH Performed By: #### C MP, LIPID #### [facility] [address] [address] [address] Gabby Park Triglyceride [Mass/Vol] 64 mg/dL Normal <=150 [facility] Comment on above: Performed By: #### C MP, LIPID #### [facility] [address] [place] [address] Dr. Gabby Park VLDL CALC 12.8 mg/dL Normal [facility] Comment on above: Performed By: #### C MP, LIPID #### [facility] [address] [address] [address] Gabby Park PROF 14(COMP METB)on 022 Albumin [Mass/Vol] 4.3 g/dL Normal 3.4-5.0 [facility] Comment on above: Performed By: #### C MP, LIPID #### [facility] [address] [place] [address] Dr. Gabby Park Albumin/Globulin [Mass ratio] 1.3 {ratio} Normal [facility] Comment on above: Performed By: #### C MP, LIPID #### [facility] [address] [address] [address] Gabby Park ALP [Catalytic activity/Vol] 53 U/L Normal 46-116 [facility] Comment on above: Performed By: #### C MP, LIPID #### [facility] [address] [place] [address] Dr. Gabby Park ALT [Catalytic activity/Vol] 44 U/L Normal 16-63 [facility] Comment on above: Performed By: #### C MP, LIPID #### [facility] [address] [place] [address] Dr. Gabby Park Anion gap [Moles/Vol] 11.0 mmol/L Normal [facility] Comment on above: Performed By: #### C MP, LIPID #### [facility] [address] [place] [address] Dr. Gabby Park AST [Catalytic activity/Vol] 18 U/L Normal 15-37 [facility] Comment on above: Performed By: #### C MP, LIPID #### [facility] [address] [place] [address] Dr. Gabby Park Bilirubin [Mass/Vol] 0.7 mg/dL Normal 0.2-1.0 [facility] Comment on above: Performed By: #### C MP, LIPID #### [facility] [address] [place] [address] Dr. Gabby Park Calcium [Mass/Vol] 9.1 mg/dL Normal 8.5-10.1 [facility] Comment on above: Performed By: #### C MP, LIPID #### [facility] [address] [place] [address] Dr. Gabby Park Chloride [Moles/Vol] 102 mmol/L Normal 98-107 [facility] Comment on above: Performed By: #### C MP, LIPID #### [facility] [address] [address] [address] Gabby Park CO2 [Moles/Vol] 28.0 mmol/L Normal 21.0-32.0 [facility] Comment on above: Performed By: #### C MP, LIPID #### [facility] [address] [place] [address] Dr. Gabby Park Creatinine [Mass/Vol] 1.02 mg/dL Normal 0.70-1.[address] [facility] Comment on above: Performed By: #### C MP, LIPID #### [facility] [address] [place] [address] Dr. Gabby Park EGFR-AF MOLDOVAN >60 Normal >=60 [facility] Comment on above: Performed By: #### C MP, LIPID #### [facility] [address] [place] [address] Dr. Gabby Park EGFR-NON AF MOLDOVAN >60 Normal >=[address] [facility] Comment on above: Performed By: #### C MP, LIPID #### [facility] [address] [place] [address] Dr. Gabby Park Globulin (S) [Mass/Vol] 3.4 g/dL Normal [facility] Comment on above: Performed By: #### C MP, LIPID #### [facility] [address] [place] [address] Dr. Gabby Park Glucose [Mass/Vol] 97 mg/dL Normal 74-106 [facility] Comment on above: Performed By: #### C MP, LIPID #### [facility] [address] [place] [address] Dr. Gabby Park Potassium [Moles/Vol] 4.0 mmol/L Normal 3.5-5.[address] [facility] Comment on above: Performed By: #### C MP, LIPID #### [facility] [address] [place] [address] Dr. Gabby Park Protein [Mass/Vol] 7.7 g/dL Normal 6.4-8.2 [facility] Comment on above: Performed By: #### C MP, LIPID #### [facility] [address] [place] [address] Dr. Gabby Park Sodium [Moles/Vol] 137 mmol/L Normal 136-145 [facility] Comment on above: Performed By: #### C MP, LIPID #### [facility] [address] [address] [address] Gabby Park Urea nitrogen [Mass/Vol] 18.0 mg/dL Normal 7.0-18.0 [facility] Comment on above: Performed By: #### C MP, LIPID #### [facility] [address] [address] [address] Gabby Park Urea nitrogen/Creatinine [Mass ratio] 17.6 mg/mg Normal [facility] Comment on above: Performed By: #### C MP, LIPID #### [facility] [address] [address] [address] Gabby Park XR KUB 1 VIEWon 11-04-2021 XR KUB 1 VIEW EXAMINATION: XR KUB 1 VIEW HISTORY: Kidney stone COMPARISON: XR KUB 09/24/2020 FINDINGS: KIDNEY/URETER - RIGHT: No visible renal or ureteral calcifications. KIDNEY/URETER - LEFT: No visible renal or ureteral calcifications. PELVIS: No visible ureteral stones. Stable small calcification within lower right and left pelvis favoring phleboliths. BOWEL: No abnormal dilation or deviation. BONES: No acute abnormality. OTHER: Negative. No abnormal gaseous collections. IMPRESSION: 1. No appreciable urinary tract calculi. Electronically authenticated by: ALEXANDRA RIBEIRO Date: 2021-11-04 11:12 Normal [facility] CALCIUM IONIZEDon 01-30-2021 Calcium, Ionized, Serum 5.2 mg/dL Normal 4.5-5.6 [facility] Comment on above: Performed By: #### C AIONZ #### [facility] [address] [address] [address] Gabby Park INSULINon 01-30-2021 Insulin 7.5 uIU/mL Normal 2.6-24.9 [facility] Comment on above: Performed By: #### A 1C #### [facility] [address] [address] [address] Gabby Park CBC AUTO DIFFon 01-29-2021 BASO # 0.0 103/ul Normal 0.0-0.1 [facility] Comment on above: Performed By: #### A 1C #### [facility] [address] [place] [address] Dr. Gabby Park Basophils/100 WBC (Bld) 0.7 % Normal 0.2-2.0 [facility] Comment on above: Performed By: #### A 1C #### [facility] [address] [place] [address] Dr. Gabby Park EO # 0.1 103/ul Normal 0.0-0.7 [facility] Comment on above: Performed By: #### A 1C #### [facility] [address] [place] [address] Dr. Gabyb Park Eosinophils/100 WBC (Bld) 2.2 % Normal 0.9-7.0 [facility] Comment on above: Performed By: #### A 1C #### [facility] [address] [place] [address] Dr. Gabby Park Erythrocyte distribution width (RBC) [Ratio] 12.2 % Normal 11.0-15.0 [facility] Comment on above: Performed By: #### A 1C #### [facility] [address] [place] [address] Dr. Gabby Park Hematocrit (Bld) [Volume fraction] 46.7 % Normal 42.0-54.0 [facility] Comment on above: Performed By: #### A 1C #### [facility] [address] [place] [address] Dr. Gabby Park Hemoglobin (Bld) [Mass/Vol] 16.0 g/dL Normal 14.0-18.0 [facility] Comment on above: Performed By: #### A 1C #### [facility] [address] [place] [address] Dr. Gabby Park IG # 0.01 10e3/ul Normal 0.00-0.03 [facility] Comment on above: Performed By: #### A 1C #### [facility] [address] [place] [address] Dr. Gabby Park IG % 0.2 % Normal 0.0-0.5 [facility] Comment on above: Performed By: #### A 1C #### [facility] [address] [place] [address] Dr. Gabby Park LYMPH # 1.0 103/ul Critically low 1.2-3.[address] [facility] Comment on above: Performed By: #### A 1C #### [facility] [address] [place] [address] Dr. Gabby Park Lymphocytes/100 WBC (Bld) 24.9 % Normal 20.5-60.0 [facility] Comment on above: Performed By: #### A 1C #### [facility] [address] [place] [address] Dr. Gabby Park MANUAL DIFF REQ NO Normal [facility] Comment on above: Performed By: #### A 1C #### [facility] [address] [place] [address] Dr. Gabby Park MCH (RBC) [Entitic mass] 29.7 pg Normal 25.9-34.0 [facility] Comment on above: Performed By: #### A 1C #### [facility] [address] [place] [address] Dr. Gabby Park MCHC (RBC) [Mass/Vol] 34.3 g/dL Normal 29.9-35.2 [facility] [facility] Comment on above: Performed By: #### A 1C #### [facility] [address] [place] [address] Dr. Gabby Park MCV (RBC) [Entitic vol] 86.6 fL Normal 80.0-94.0 [facility] Comment on above: Performed By: #### A 1C #### [facility] [address] [place] [address] Dr. Gabby Park MONO # 0.4 103/ul Normal 0.3-0.8 [facility] Comment on above: Performed By: #### A 1C #### [facility] [address] [place] [address] Dr. Gabby Park Monocytes/100 WBC (Bld) 8.6 % Normal 1.7-12.0 [facility] Comment on above: Performed By: #### A 1C #### [facility] [address] [address] [address] Gabby Park NEUT # 2.6 103/ul Normal 1.4-6.5 [facility] Comment on above: Performed By: #### A 1C #### [facility] [address] [address] [address] Gabby Park Neutrophils/100 WBC (Bld) 63.4 % Normal 43.0-75.0 [facility] Comment on above: Performed By: #### A 1C #### [facility] [address] [address] [address] Gabby Park Platelet mean volume (Bld) [Entitic vol] 9.6 fL Normal 9.5-13.5 [facility] Comment on above: Performed By: #### A 1C #### [facility] [address] [place] [address] Dr. Gabby Park PLT 215 103/ul Normal 150-450 [facility] Comment on above: Performed By: #### A 1C #### [facility] [address] [place] [address] Dr. Gabby Park RBC 5.39 106/ul Normal 4.70-6.10 [facility] Comment on above: Performed By: #### A 1C #### [facility] [address] [place] [address] Dr. Gabby Park WBC 4.1 103/ul Normal 4.0-11.0 [facility] Comment on above: Performed By: #### A 1C #### [facility] [address] [place] [address] Dr. Gabby Park GLYCOHEMOGLOBIN A1Con 2020 ADA RECOMMENDATION ADA THERAPEUTIC TARGET 6.0 - 7.0 ACTION SUGGESTED > 7.0 Normal [facility] Comment on above: Performed By: #### A 1C #### [facility] [address] [place] [address] Dr. Gabby Park Glucose [Mass/Vol] 114 mg/dL Normal [facility] Comment on above: Performed By: #### A 1C #### [facility] [address] [place] [address] Dr. Gabby Park HbA1c (Bld) [Mass fraction] 5.6 % Normal <=6.0 [facility] Comment on above: Performed By: #### A 1C #### [facility] [address] [place] [address] Dr. Gabby Park LIPID PROFILEon 01-29-2021 CHOL-HDL RATIO NORM SEE BELOW Normal [facility] Comment on above: Result Comment: 3.3 - 4.4 LOW RISK 4.4 - 7.1 AVERAGE RISK 7.1 - 11.0 MODERATE RISK >11.0 HIGH RISK Performed By: #### C MP, LIPID #### [facility] [address] [place] [address] Dr. Gabby Park Cholesterol [Mass/Vol] 152 mg/dL Normal <=200 [facility] Comment on above: Performed By: #### C MP, LIPID #### [facility] [address] [place] [address] Dr. Gabby Park Cholesterol in HDL [Mass/Vol] 47 mg/dL Normal [facility] Comment on above: Performed By: #### C MP, LIPID #### [facility] [address] [place] [address] Dr. Gabby Park Cholesterol in LDL [Mass/Vol] 91.0 mg/dL Normal [facility] Comment on above: Performed By: #### C MP, LIPID #### [facility] [address] [place] [address] Dr. Gabby Park Cholesterol.total/Cho lesterol in HDL [Mass ratio] 3.2 {ratio} Normal [facility] Comment on above: Performed By: #### C MP, LIPID #### [facility] [address] [place] [address] Dr. Gabby Park HDL NORMAL > or = 60 mg/dl - LOW CARDIOVASCULAR RISK <40 mg/dl - HIGH CARDIOVASCULAR RISK Normal [facility] Comment on above: Performed By: #### C MP, LIPID #### [facility] [address] [place] [address] Dr. Gabby Park LDL CALC NORMAL SEE BELOW Normal [facility] Comment on above: Result Comment: <100 mg/dl OPTIMAL 100 - 129 mg/dl NEAR OR ABOVE OPTIMAL 130 - 159 mg/dl BORDERLINE HIGH 160 - 189 mg/dl HIGH >190 mg/dl VERY HIGH Performed By: #### C MP, LIPID #### [facility] [address] [address] [address] Gabby Park Triglyceride [Mass/Vol] 70 mg/dL Normal <=150 [facility] Comment on above: Performed By: #### C MP, LIPID #### [facility] [address] [address] [address] Gabby Park VLDL CALC 14.0 mg/dL Normal [facility] Comment on above: Performed By: #### C MP, LIPID #### [facility] [address] [place] [address] Dr. Gabby Park PROF 14(COMP METB)on 021 Albumin [Mass/Vol] 4.2 g/dL Normal 3.5-5.0 [facility] Comment on above: Performed By: #### C MP, LIPID #### [facility] [address] [address] [address] Gabby Park Albumin/Globulin [Mass ratio] 1.2 {ratio} Normal [facility] Comment on above: Performed By: #### C MP, LIPID #### [facility] [address] [address] [address] Gabby Park ALP [Catalytic activity/Vol] 51 U/L Normal 38-126 [facility] Comment on above: Performed By: #### C MP, LIPID #### [facility] [address] [address] [address] Gabby Park ALT [Catalytic activity/Vol] 33 U/L Normal 21-72 [facility] Comment on above: Performed By: #### C MP, LIPID #### [facility] [address] [address] [address] Gabby Park Anion gap [Moles/Vol] 11.5 mmol/L Normal [facility] Comment on above: Performed By: #### C MP, LIPID #### [facility] [address] [address] [address] Gabby Park AST [Catalytic activity/Vol] 19 U/L Normal 17-59 [facility] Comment on above: Performed By: #### C MP, LIPID #### [facility] [address] [address] [address] Gabby Park Bilirubin [Mass/Vol] 0.6 mg/dL Normal 0.2-1.3 [facility] Comment on above: Performed By: #### C MP, LIPID #### [facility] [address] [address] [address] Gabby Park Calcium [Mass/Vol] 9.5 mg/dL Normal 8.4-10.2 [facility] Comment on above: Performed By: #### C MP, LIPID #### [facility] [address] [place] [address] Dr. Gabby Park Chloride [Moles/Vol] 102 mmol/L Normal 98-107 [facility] Comment on above: Performed By: #### C MP, LIPID #### [facility] [address] [address] [address] Gabby aPrk CO2 [Moles/Vol] 31.0 mmol/L Critically high 22.0-30.0 [facility] Comment on above: Performed By: #### C MP, LIPID #### [facility] [address] [place] [address] Dr. Gabby Park Creatinine [Mass/Vol] 1.10 mg/dL Normal 0.66-1.25 [facility] Comment on above: Performed By: #### C MP, LIPID #### [facility] [address] [address] [address] Gabby Park EGFR-AF MOLDOVAN >60 Normal >=60 [facility] Comment on above: Performed By: #### C MP, LIPID #### [facility] [address] [address] [address] Gabby Park EGFR-NON AF MOLDOVAN >60 Normal >=60 [facility] Comment on above: Performed By: #### C MP, LIPID #### [facility] [address] [address] [address] Gabby Park Globulin (S) [Mass/Vol] 3.4 g/dL Normal [facility] Comment on above: Performed By: #### C MP, LIPID #### [facility] [address] [address] [address] Gabby Park Glucose [Mass/Vol] 101 mg/dL Normal 74-106 [facility] Comment on above: Performed By: #### C MP, LIPID #### [facility] [address] [place] [address] Dr. Gabby Park Potassium [Moles/Vol] 4.5 mmol/L Normal 3.4-5.0 [facility] Comment on above: Performed By: #### C MP, LIPID #### [facility] [address] [place] [address] Dr. Gabby Pakr Protein [Mass/Vol] 7.6 g/dL Normal 6.1-8.2 [facility] Comment on above: Performed By: #### C MP, LIPID #### [facility] [address] [address] [address] Gabby Park Sodium [Moles/Vol] 140 mmol/L Normal 137-145 [facility] Comment on above: Performed By: #### C MP, LIPID #### [facility] [address] [place] [address] Dr. Gabby Park Urea nitrogen [Mass/Vol] 18.0 mg/dL Normal 9.0-20.0 [facility] Comment on above: Performed By: #### C MP, LIPID #### [facility] [address] [place] [address] Dr. Gabby Park Urea nitrogen/Creatinine [Mass ratio] 16.4 mg/mg Normal [facility] Comment on above: Performed By: #### C MP, LIPID #### [facility] [address] [place] [address] Dr. Gabby Park Vital Signs Date Time Vital Sign Value Performing Clinician Liam feltony 11-11-2022 09:58-0400 Blood Pressure Location Swapnil CLINT [facility] 11-11-2022 09:58-0400 Diastolic blood pressure 74 mm[Hg] Swapnil MUIR [facility] 11-11-2022 09:58-0400 Heart rate 68 /min Swapnil MUIR [facility] 11-11-2022 09:58-0400 Respiratory rate 16 /min Swapnil MUIR [facility] 11-11-2022 09:58-0400 Systolic blood pressure 132 mm[Hg] Swapnil MUIR [facility] 05-09-2022 10:07-0500 Diastolic blood pressure 65 mm[Hg] MD Isaiah Paul Work Phone: [facility] 05-09-2022 10:07-0500 Heart rate 72 /min MD Isaiah Paul Work Phone: [facility] 05-09-2022 10:07-0500 Respiratory rate 18 /min MD Isaiah Paul Work Phone: [facility] 05-09-2022 10:07-0500 SaO2% (BldA) [Mass fraction] 97 % MD Iasiah Paul Work Phone: [facility] 05-09-2022 10:07-0500 Systolic blood pressure 112 mm[Hg] MD Isaiah Paul Work Phone: [facility] 05-09-2022 07:36-0500 Body height 180.34 cm MD Isaiah Paul Work Phone: [facility] 05-09-2022 07:36-0500 Body temperature 97.4 [degF] MD Isaiah Paul Work Phone: [facility] 05-09-2022 07:36-0500 Body weight 102.05 kg MD Isaiah Paul Work Phone: [facility] 11-08-2021 09:18-0400 Blood Pressure Location Swapnil MUIR [facility] 11-08-2021 09:18-0400 Diastolic blood pressure 85 mm[Hg] Swapnil MUIR [facility] 11-08-2021 09:18-0400 Heart rate 71 /min Swapnil MUIR [facility] 11-08-2021 09:18-0400 Respiratory rate 16 /min Swapnil MUIR [facility] 11-08-2021 09:18-0400 Systolic blood pressure 121 mm[Hg] Swapnil MUIR [facility] Encounters Encounter Date Encounter Type Care Provider Facility Start: 11-17-2023 ambulatory Swapnil MUIR Facili ty:[facility] Start: 07-14-2023 ambulatory Swapnil MUIR Facili ty:[facility] Start: 02-13-2023 End: 02-13-2023 ambulatory MODESTO S RUSHER Not Available Start: 01-31-2023 End: 02-01-2023 ambulatory MODESTO S RUSHER Not Available Start: 01-23-2023 End: 01-23-2023 ambulatory MOEDSTO S RUSHER Not Available Start: 12-20-2022 End: 12-21-2022 ambulatory Swapnil MUIR [place] [place]: 12-14-2022 End: 12-15-2022 ambulatory Swapnil MUIR Facility:[facility] Start: 12-08-2022 End: 12-09-2022 ambulatory Swapnil MUIR Facility:[id number] Start: 11-11-2022 End: 11-12-2022 ambulatory Swapnil MUIR Facility:[facility] Start: 11-11-2022 End: 11-11-2022 Patient encounter procedure Swapnil MUIR [facility] Start: 05-09-2022 End: 05-09-2022 ambulatory Isaiah Paul Facility:[facility] Start: 05-09-2022 End: 05-09-2022 Admission to same day surgery center MD Isaiah Paul Work Phone: [facility] Work Phone: Start: 05-09-2022 End: 05-09-2022 ambulatory MD Isaiah Paul Work Phone: [facility] Work Phone: Start: 12-21-2021 Encounter for genera l adult medical examination without abnormal findings DR ISAIAH PAUL [facility] Start: 12-17-2021 End: 12-18-[address] ISAIAH PAUL Facility:[facility] Start: 12-17-2021 End: 12-18-2021 Encounter for general adult medical examination without abnormal findings DR ISAIAH PAUL Facility:[facility] Start: 11-08-2021 End: 11-08-2021 Patient encounter procedure Swapnil MUIR [facility] Start: 11-03-2021 End: 11-04-[address] SWAPNIL MUIR Facility:[facility] Start: 01-29-2021 End: 01-30-[address] ISAIAH PAUL Facility:[facility] Procedures Date Procedure Procedure Detail Performing Clinician Start: 05-09-2022 Screening colonoscopy Randee Paul Work Phone: Start: 12-17-[address] VIJAY PAUL Comment on above: Performed By: #### P SASC #### [facility] [address] [place] [address] Dr. Gabby Park Start: 11-03-[address] VIJAY PAUL Comment on above: Performed By: #### A 1C #### [facility] [address] [place] [address] Dr. Gabby Park Start: 01-29-[address] VIJAY PAUL Comment on above: Performed By: #### P [facility] #### [facility] [address] [place] [address] Dr. Gabby Park Start: 01-08-2015 Extracorporeal shock wave lithotripsy of calculus of kidney Swapnil MUIR Start: 04-21-2005 Lithotripsy using laser Swapnil MUIR Start: 11-03-2004 Cystoscopy Swapnil BUCHANAN Hernia repair Swapnil MUIR Thumb surgery Swapniltrev MUIR Plan of Treatment Date Care Activity Detail Author Start: 05-09-2022 [facility] Immunizations Immunization Date Immunization Notes [facility] SARS-CoV-2 (COVID-19 ) [id number] Swapniltrev MUIR [facility] 11-21-2021 influenza virus vaccine, unspecified formulation Swapnil CLINT [facility] 11-21-2021 tetanus toxoid, redu rj diphtheria toxoid, and acellular pertussis vaccine, adsorbed Swapnil MUIR [facility] 06-24-2021 SARS-CoV-2 (COVID-19 ) mRNA-1273 vaccine Swapnil CLINT [facility] 01-09-2021 SARS-CoV-2 (COVID-19 ) mRNA BNT-162b2 vax Swapnil MUIR [facility] 12-17-2020 influenza virus vaccine, unspecified formulation Swapnil MUIR [facility] 06-16-2020 SARS-CoV-2 (COVID-19 ) mRNA BNT-162b2 vax Swapnil MUIR [facility] 05-25-2020 SARS-CoV-2 (COVID-19 ) mRNA BNT-162b2 vax Swapnil Good4U [facility] 11-25-2019 influenza virus vaccine, unspecified formulation Kreix [facility] 05-13-2019 zoster vaccine recombinant Kreix [facility] 03-14-2019 zoster vaccine recombinant Kreix [facility] 12-05-2016 influenza, unspecifi ed formulation Swapnil Good4U [facility] 03-11-2015 influenza virus vaccine, unspecified formulation Kreix [facility] 01-30-2014 influenza virus vaccine, unspecified formulation Kreix [facility] Payers Date Payer Category Payer Self-pay 2018 Unknown [id number] 1966 Unknown [id number] .16.84 [id number] 1966 Unknown [id number] .16.84 [id number] 1966 Unknown [id number] .16.84 [id number] 1966 Unknown [id number] 2.16.840 .[id number] 1966 Unknown [id number] 2.16.840 .[id number] 1966 Unknown [id number] 2.16.840. [id number] 1966 Unknown [id number] 2.16.8 [id number] 1966 Unknown [id number] 2.16.8 [id number] 1966 Unknown [id number] 2.16.8 [id number] 1966 Unknown [id number] 2.16.8 [id number] 1966 Unknown [id number] 2.16.8 [id number] 1966 Unknown [id number] 2.16.8 [id number] 1959 Unknown [id number] Unknown [id number] 2.16.8 [id number] Social History Date Type Detail Facility Start: 11-08-2021 End: 11-11-2022 Tobacco smoking status Never smoked tobacco (finding) [facility] Sex Assigned At Male [facility] Start: 1965 Sex Assigned At Male [facility] Tobacco smoking status Never [facility] Goals Date Patient Goal Desired Activity /State Functional Status Date Assessment Result Facility 11-11-2022 Functional Status N/A [facility] 11-08-2021 Functional Status N/A [facility] Clinical Notes 11-08-2021 to 12-20-2022 Note Date & Type Note Facility 12-20-2022 Note [id number] [facility] [place] 12-20-2022 Note Custom Cystoscopy with Stent Removal ? Voiding after the procedure: there may be some pain, burning, urgency, frequency and blood tinged urine following the procedure. These symptoms usually resolve within 2-5 days. Drink the amount of fluid it takes to keep the urine pink to yellow or clear in color. Drinking enough water and fluids will help to ease any discomfort after your procedure. ? If you are having problems that seem out of the ordinary, please call. ? If unable to contact your physician and you feel it is an emergency, go to the nearest emergency room or call 911 ? Diet ? you may resume your normal diet. ? Activity ? you may resume your normal activities ? Call if you have a fever over 100 degrees. [facility] 11-11-2022 Hospital Discharge instructions Patient Education 11/11/2022 10:41:30 Dietary Guidelines to Help Prevent Kidney Stones Dietary Guidelines to Help Prevent Kidney Stones Kidney stones are deposits of minerals and salts that form inside your kidneys. Your risk of developing kidney stones may be greater depending on your diet, your lifestyle, the medicines you take, and whether you have certain medical conditions. Most people can lower their chances of developing kidney stones by following the instructions below. Your dietitian may give you more specific instructions depending on your overall health and the type of kidney stones you tend to develop. What are tips for following this plan? Reading food labels Choose foods with no salt added or low-salt labels. Limit your salt (sodium) intake to less than 1,500 mg a day. Choose foods with calcium for each meal and snack. Try to eat about 300 mg of calcium at each meal. Foods that contain 200 500 mg of calcium a serving include: ?8 oz (237 mL) of milk, dcaazag-rmxbkzulrnoy-hxxen milk, and calcium-fortifiedfruit juice. Calcium-fortified means that calcium has been added to these drinks. ?8 oz (237 mL) of kefir, yogurt, and soy yogurt. ?4 oz (114 g) of tofu. ?1 oz (28 g) of cheese. ?1 cup (150 g) of dried figs. ?1 cup (91 g) of cooked broccoli. ?One 3 oz (85 g) can of sardines or mackerel. Most people need 1,000 1,500 mg of calcium a day. Talk to your dietitian about how much calcium is recommended for you. Shopping Buy plenty of fresh fruits and vegetables. Most people do not need to avoid fruits and vegetables, even if these foods contain nutrients that may contribute to kidney stones. When shopping for convenience foods, choose: ?Whole pieces of fruit. ?Pre-made salads with dressing on the side. ?Low-fat fruit and yogurt smoothies. Avoid buying frozen meals or prepared deli foods. These can be high in sodium. Look for foods with live cultures, such as yogurt and kefir. Choose high-fiber grains, such as whole-wheat breads, oat bran, and wheat cereals. Cooking Do not add salt to food when cooking. Place a salt shaker on the table and allow each person to add his or her own salt to taste. Use vegetable protein, such as beans, textured vegetable protein (TVP), or tofu, instead of meat in pasta, casseroles, and soups. Meal planning Eat less salt, if told by your dietitian. To do this: ?Avoid eating processed or pre-made food. ?Avoid eating fast food. Eat less animal protein, including cheese, meat, poultry, or fish, if told by your dietitian. To do this: ?Limit the number of times you have meat, poultry, fish, or cheese each week. Eat a diet free of meat at least 2 days a week. ?Eat only one serving each day of meat, poultry, fish, or seafood. ?When you prepare animal protein, cut pieces into small portion sizes. For most meat and fish, one serving is about the size of the palm of your hand. Eat at least five servings of fresh fruits and vegetables each day. To do this: ?Keep fruits and vegetables on hand for snacks. ?Eat one piece of fruit or a handful of berries with breakfast. ?Have a salad and fruit at lunch. ?Have two kinds of vegetables at dinner. Limit foods that are high in a substance called oxalate. These include: ?Spinach (cooked), rhubarb, beets, sweet potatoes, and Vincentian chard. ?Peanuts. ?Potato chips, burundian fries, and baked potatoes with skin on. ?Nuts and nut products. ?Chocolate. If you regularly take a diuretic medicine, make sure to eat at least 1 or 2 servings of fruits or vegetables that are high in potassium each day. These include: ?Avocado. ?Banana. ?Raritan, prune, carrot, or tomato juice. ?Baked potato. ?Cabbage. ?Beans and split peas. Lifestyle Drink enough fluid to keep your urine pale yellow. This is the most important thing you can do. Spread your fluid intake throughout the day. If you drink alcohol: ?Limit how much you use to: ?0 1 drink a day for women who are not . ?0 2 drinks a day for men. ?Be aware of how much alcohol is in your drink. In the [place] one drink equals one 12 oz bottle of beer (355 mL), one 5 oz glass of wine (148 mL), or one 1 oz glass of hard liquor (44 mL). Lose weight if told by your health care provider. Work with your dietitian to find an eating plan and weight loss strategies that work best for you. General information Talk to your health care provider and dietitian about taking daily supplements. You may be told the following depending on your health and the cause of your kidney stones: ?Not to take supplements with vitamin C. ?To take a calcium supplement. ?To take a daily probiotic supplement. ?To take other supplements such as magnesium, fish oil, or vitamin B6. Take cbwi-gqn-clezeaw and prescription medicines only as told by your health care provider. These include supplements. What foods should I limit? Limit your intake of the following foods, or eat them as told by your dietitian. Vegetables Spinach. Rhubarb. Beets. Canned vegetables. Pickles. Olives. Baked potatoes with skin. Grains Wheat bran. Baked goods. Salted crackers. Cereals high in sugar. Meats and other proteins Nuts. Nut butters. Large portions of meat, poultry, or fish. Salted, precooked, or cured meats, such as sausages, meat loaves, and hot dogs. Dairy Cheese. Beverages Regular soft drinks. Regular vegetable juice. Seasonings and condiments Seasoning blends with salt. Salad dressings. Soy sauce. Ketchup. Barbecue sauce. Other foods Canned soups. Canned pasta sauce. Casseroles. Pizza. Lasagna. Frozen meals. Potato chips. [place] fries. The items listed above may not be a complete list of foods and beverages you should limit. Contact a dietitian for more information. What foods should I avoid? Talk to your dietitian about specific foods you should avoid based on the type of kidney stones you have and your overall health. Fruits Grapefruit. The item listed above may not be a complete list of foods and beverages you should avoid. Contact a dietitian for more information. Summary Kidney stones are deposits of minerals and salts that form inside your kidneys. You can lower your risk of kidney stones by making changes to your diet. The most important thing you can do is drink enough fluid. Drink enough fluid to keep your urine pale yellow. Talk to your dietitian about how much calcium you should have each day, and eat less salt and animal protein as told by your dietitian. This information is not intended to replace advice given to you by your health care provider. Make sure you discuss any questions you have with your health care provider. Document Revised: 11/08/2021 Document Reviewed: 11/08/2021 Bday Patient Education 2022 [employer]. Follow Up Care 11/08/2021 09:58:05 With:CLINT TIM, Swapnil Tapia, URL Address: [facility] [address], [place] [address]- When:Within 1 Year(s) Comments:w/ PSA [facility] 05-09-2022 Procedure note [facility] 11-08-2021 Hospital Discharge instructions Patient Education 11/08/2021 09:27:37 Benign Prostatic Hyperplasia Benign Prostatic Hyperplasia Benign prostatic hyperplasia (BPH) is an enlarged prostate gland that is caused by the normal aging process and not by cancer. The prostate is a walnut-sized gland that is involved in the production of semen. It is located in front of the rectum and below the bladder. The bladder stores urine and the urethra is the tube that carries the urine out of the body. The prostate may get bigger as a man gets older. An enlarged prostate can press on the urethra. This can make it harder to pass urine. The build-up of urine in the bladder can cause infection. Back pressure and infection may progress to bladder damage and kidney (renal) failure. What are the causes? This condition is part of a normal aging process. However, not all men develop problems from this condition. If the prostate enlarges away from the urethra, urine flow will not be blocked. If it enlarges toward the urethra and compresses it, there will be problems passing urine. What increases the risk? This condition is more likely to develop in men over the age of 50 years. What are the signs or symptoms? Symptoms of this condition include: Getting up often during the night to urinate. Needing to urinate frequently during the day. Difficulty starting urine flow. Decrease in size and strength of your urine stream. Leaking (dribbling) after urinating. Inability to pass urine. This needs immediate treatment. Inability to completely empty your bladder. Pain when you pass urine. This is more common if there is also an infection. Urinary tract infection (UTI). How is this diagnosed? This condition is diagnosed based on your medical history, a physical exam, and your symptoms. Tests will also be done, such as: A post-void bladder scan. This measures any amount of urine that may remain in your bladder after you finish urinating. A digital rectal exam. In a rectal exam, your health care provider checks your prostate by putting a lubricated, gloved finger into your rectum to feel the back of your prostate gland. This exam detects the size of your gland and any abnormal lumps or growths. An exam of your urine (urinalysis). A prostate specific antigen (PSA) screening. This is a blood test used to screen for prostate cancer. An ultrasound. This test uses sound waves to electronically produce a picture of your prostate gland. Your health care provider may refer you to a specialist in kidney and prostate diseases (urologist). How is this treated? Once symptoms begin, your health care provider will monitor your condition (active surveillance or watchful waiting). Treatment for this condition will depend on the severity of your condition. Treatment may include: Observation and yearly exams. This may be the only treatment needed if your condition and symptoms are mild. Medicines to relieve your symptoms, including: ?Medicines to shrink the prostate. ?Medicines to relax the muscle of the prostate. Surgery in severe cases. Surgery may include: ?Prostatectomy. In this procedure, the prostate tissue is removed completely through an open incision or with a laparoscope or robotics. ?Transurethral resection of the prostate (TURP). In this procedure, a tool is inserted through the opening at the tip of the penis (urethra). It is used to cut away tissue of the inner core of the prostate. The pieces are removed through the same opening of the penis. This removes the blockage. ?Transurethral incision (TUIP). In this procedure, small cuts are made in the prostate. This lessens the prostate's pressure on the urethra. ?Transurethral microwave thermotherapy (TUMT). This procedure uses microwaves to create heat. The heat destroys and removes a small amount of prostate tissue. ?Transurethral needle ablation (TUNA). This procedure uses radio frequencies to destroy and remove a small amount of prostate tissue. ?Interstitial laser coagulation (ILC). This procedure uses a laser to destroy and remove a small amount of prostate tissue. ?Transurethral electrovaporization (TUVP). This procedure uses electrodes to destroy and remove a small amount of prostate tissue. ?Prostatic urethral lift. This procedure inserts an implant to push the lobes of the prostate away from the urethra. Follow these instructions at home: Take ubzj-tye-[id number] and prescription medicines only as told by your health care provider. Monitor your symptoms for any changes. Contact your health care provider with any changes. Avoid drinking large amounts of liquid before going to bed or out in public. Avoid or reduce how much caffeine or alcohol you drink. Give yourself time when you urinate. Keep all follow-up visits as told by your health care provider. This is important. Contact a health care provider if: You have unexplained back pain. Your symptoms do not get better with treatment. You develop side effects from the medicine you are taking. Your urine becomes very dark or has a bad smell. Your lower abdomen becomes distended and you have trouble passing your urine. Get help right away if: You have a fever or chills. You suddenly cannot urinate. You feel lightheaded, or very dizzy, or you faint. There are large amounts of blood or clots in the urine. Your urinary problems become hard to manage. You develop moderate to severe low back or flank pain. The flank is the side of your body between the ribs and the hip. These symptoms may represent a serious problem that is an emergency. Do not wait to see if the symptoms will go away. Get medical help right away. Call your local emergency services (911 in the [place] Do not drive yourself to the hospital. Summary Benign prostatic hyperplasia (BPH) is an enlarged prostate that is caused by the normal aging process and not by cancer. An enlarged prostate can press on the urethra. This can make it hard to pass urine. This condition is part of a normal aging process and is more likely to develop in men over the age of 50 years. Get help right away if you suddenly cannot urinate. This information is not intended to replace advice given to you by your health care provider. Make sure you discuss any questions you have with your health care provider. Document Released: 02/27/2006 Document Revised: 01/22/2019 Document Reviewed: 04/03/2017 Bday Patient Education 2020 [employer]. Follow Up Care 09/28/2020 09:43:43 With:Swapnil MUIR MD, URL Address: [address] [place] [id number] When:Within 1 Year(s) [facility] Evaluation + Plan note Future Appointments Appointment Date:11/11/2022 09:30:00 AM Scheduled Provider:Swapnil MUIR MD Location:[facility] Appointment Type:URO Office Visit Diagnostic Tests PendingPSA Total 09/10/22 [facility] Evaluation + Plan note Future Appointments Appointment Date:11/17/2023 09:30:00 AM Scheduled Provider:Swapnil MUIR MD Location:[facility] Appointment Type:URO Office Visit Diagnostic Tests PendingPSA Total 11/11/22Creatinine 11/11/22BUN 11/11/22 [facility] Evaluation note Diagnosis Onset Date Encounter for screening colonoscopy [facility] Work Phone: Hospital course Narrative No data available for this section [facility] Hospital Discharge instructions Additional Instructions DISCHARGE INSTRUCTIONS FOR ENDOSCOPY FOR COLONOSCOPY: -Expect a gassy or full feeling after a colonoscopy. Report any NEW abdominal pain or vomiting. -It is important to keep your appointments for follow up examinations. FOR SEDATION FOR 24 HOURS: -NO driving -Do NOT operate machinery such as power tools, lawn mowers, snow blowers, sewing machines, etc. -Avoid alcoholic beverages and drugs for allergies, nerves, or sleep. -Do NOT stay alone. Do NOT leave your child unattended. -Do NOT make important personal or business decisions or sign any legal documents. -Eat solid foods and drink liquids in smaller amounts than usual until normal appetite returns. If you should experience an upset stomach, liquids high in sugar content (soda, Saul-aid, non-acid juices) are recommended. -You can resume normal activities tomorrow. FOLLOW UP Please call the office and make a follow up appointment to see me as needed. Repeat colonoscopy in 10 years -Notify the doctor if you have any problems. -[facility] number [phone] Work Phone: Progress note No data available for this section [facility] Summary Purpose Family History No Family History Records Found Relationship Condition Age at Onset Recorded Date/T maya Not Specified Diabetes mellitus Unknown Heart disease Unknown sister Malignant neoplasm of lung Unknown Advance Directives No Advanced Directives Records Found Advance Directive Response Recorded Date/ Time Advance Directives No April 10:03am Chief Complaint and Reason for Visit Chief Complaint Screening Reason for Visit Encounter for screen ing colonoscopy Additional Source Comments Care Team (unrecognized sect ion and content) Team Status: Inactive Member Role Status Dates Cuong Reddy MD Attending Provider Active Isaiah Paul MD Primary Care Provider Active Team Status: Active Member Role Status Dates Isaiah Paul MD Primary Care Provider Active (unrecognized sect ion and content) No Status Records FoundNo Status Records FoundNo Status Records FoundNo Status Records Found INFORMATION SOURCE (unrecogn ized section and content) DATE CREATED AUTHOR 12/21/2021 [facility] DATE CREATED AUTHOR AUTHOR'S ORGANIZ ATION 05/13/2022 [facility] DATE CREATED AUTHOR AUTHOR'S ORGANIZ ATION 02/15/2023 [facility] EPIC DATE CREATED AUTHOR AUTHOR'S ORGANIZ ATION 05/29/2023 [facility] FOR RECORDS PERTAINING TO PATIENTS WHO ARE OR HAVE BEEN ENROLLED IN A CHEMICAL DEPENDENCY/SUBSTANCEABUSE PROGRAM, SOME INFORMATION MAY BE OMITTED. This clinical summary was aggregated from multiple sources. Caution should be exercised in using it in the provision of clinical care. This summary normalizes information from multiple sources, and as a consequence, information in this document may materially change the coding, format and clinical context of patient data. In addition, data may be omitted in some cases. CLINICAL DECISIONS SHOULD BE BASED ON THE PRIMARY CLINICAL RECORDS. [employer] provides no warranty or guarantee of the accuracy or completeness of information in this document.
== END 2023-07-11 12:23 | disposition home or self-care (01) ==
LOC: RAD 12:22
PROVIDERS: PCP Family Medicine; Visit Provider Urology
DX: N20.0 Calculus of kidney (principal)
CPT/HCPCS: 74018

== ENCOUNTER 2024-02-28 10:15 | Outpatient (OUT) | payer OTHER, SELFPAY ==
[2024-02-28 10:36] LABS: Basophils Percent Auto 0.7 % (0.2-2.0); Eosinophils Absolute Auto 0.1 10^3/uL (0.0-0.7); Eosinophils Percent Auto 1.3 % (0.9-7.0); Hemoglobin 16.3 g/dL (14.0-18.0); Immature Granulocytes Abs Auto 0.02 10^3/uL (0.00-0.03); Immature Granulocytes Pct Auto 0.4 % (0.0-0.5); Lymphocytes Absolute Auto 1.1 10^3/uL (1.2-3.8); Lymphocytes Percent Auto 20.5 % (20.5-60.0); Mean Corpuscular HGB Conc 34.7 g/dL (29.9-35.2); Mean Corpuscular Volume 86.6 fL (80.0-94.0); Mean Platelet Volume 9.3 fL (9.5-13.5); Monocytes Absolute Auto 0.4 10^3/uL (0.3-0.8); Neutrophils Absolute Auto 3.7 10^3/uL (1.4-6.5); Neutrophils Percent Auto 69.1 % (43.0-75.0); Platelet Count 211 10^3/uL (150-450); Red Blood Count 5.43 10^6/uL (4.70-6.10); Red Cell Distribution Width 12.1 % (11.0-15.0); White Blood Count 5.4 10^3/uL (4.0-11.0)
[2024-02-28 11:40] LABS: Alanine Aminotransferase 60 U/L (16-63); Albumin Globulin Ratio 1.3; Albumin Level 3.9 g/dL (3.4-5.0); Alkaline Phosphatase 51 U/L (46-116); Aspartate Amino Transferase 31 U/L (15-37); BUN Creatinine Ratio 17.6; Bilirubin Total 0.9 mg/dL (0.2-1.0); Calcium 9.1 mg/dL (8.5-10.1); Carbon Dioxide 31.3 mmol/L (21.0-32.0); Chloride 103 mmol/L (98-107); Chol HDL Ratio 3.7; Cholesterol 172 mg/dL (<=200); Estimated GFR (African America >60 (>=60 mL/min/1.73m^2); Estimated GFR (Non-African Ame >60 (>=60 mL/min/1.73m^2); Free T3 3.03 pg/mL (2.18-3.98); Glucose 115 mg/dL (74-106); HDL Cholesterol 47 mg/dL (40-60); LDL Cholesterol Calculated 104.2 mg/dL; Potassium 4.3 mmol/L (3.5-5.1); Sodium 140 mmol/L (136-145); Thyroid Stimulating Hormone 2.866 uIU/mL (0.358-3.740); Total Protein 6.9 g/dL (6.4-8.2); Triglycerides 104 mg/dL (<=150); Uric Acid 6.1 mg/dL (3.5-7.2); VLDL CHOLESTEROL 20.8 mg/dL
[2024-02-28 11:50] LABS: Estimated Average Glucose 123 mg/dL; Glycohemoglobin A1C 5.9 % (4.5-6.2)
[2024-02-28 15:29] LABS: Prostate Specific Antigen Scrn 0.98 ng/mL (<=4.00)
[2024-02-29 10:09] LABS: Insulin 11.2 uIU/mL (2.6-24.9)
== END 2024-02-28 10:16 | disposition home or self-care (01) ==
LOC: LAB 10:16
PROVIDERS: PCP Family Medicine; Visit Provider Family Medicine
DX: Z00.00 Encounter for general adult medical examination without abnormal findings (principal)
CPT/HCPCS: 36415; 80053; 80061; 83036; 83525; 84436; 84443; 84481; 84550; 85025; G0103

== ENCOUNTER 2024-10-09 16:17 | Outpatient (OUT) | payer OTHER, SELFPAY ==
--- NOTE | 2024-10-09 | XR_ITS ---
[address] [address] Patient Name: MARKEL ARMENDARIZ MRN: [id number] date: 1965 Sex: M Assigned Patient Location: LAB Current Patient Location: Accession/Order Number: [id number] Exam Date: 10/10/2024 09:42 Report Date: 10/10/2024 09:42 At the request of: MARKIE JARAMILLO MD Procedure: XR abdomen 1V KUB: CLINICAL INFORMATION: Kidney stone follow-up COMPARISON: KUB 07/11/2023 FINDINGS: No suspicious urinary tract calculus. Moderate stool burden. No bowel obstruction or free air. XR/XR abdomen 1V IMPRESSION: NO SUSPICIOUS URINARY TRACT CALCULUS. CONSTIPATION. Impression dictated by: Naresh Mcdonald Jr., D.O. 10/10/2024 9:42 AM Dictation Location: [place] [address] Electronically authenticated by: [id number] Y Date: 10/10/2024 09:42
[2024-10-09 17:41] LABS: Prostate Specific Antigen Dx 0.82 ng/mL (<=4.00)
== END 2024-10-09 16:18 | disposition home or self-care (01) ==
LOC: LAB 16:18
PROVIDERS: PCP Family Medicine; Visit Provider Urology
DX: N40.1 Benign prostatic hyperplasia with lower urinary tract symptoms (principal); Z87.442 Personal history of urinary calculi; N20.1 Calculus of ureter; K59.00 Constipation, unspecified
CPT/HCPCS: 36415; 74018; 84153

== ENCOUNTER 2024-10-11 16:32 | Outpatient (OUT) | payer OTHER, SELFPAY ==
--- OUTSIDE RECORDS SUMMARY | 2024-02-28 05:30 | XMS_ITS ---
Author Organization The [facility] in [place] Address [address] [place] [address] Care Team Providers Care Hobbing Machine Operator Name Role Phone Humberto Paul Primary Care Provider Allergies No Known Allergies REASON FOR VISIT annual Wellness Medications Medication SIG (Take, Route, Frequency, Duration) Notes Start Date End Date Status Triamcinolone Acetonide 0.1 % 1 application Externally Twice a day 06/21/2022 Active Flomax 0.4 MG 1 capsule Orally Onc e a day Active Repatha SureClick 140 MG/ML administer 1 ml Subcutaneous q 2 weeks for 90 days 08/22/2022 Active Ambien 10 MG 1 tablet at bedtime as needed Orally Once a day 02/28/2024 Active Social History Tobacco Use: Social History Observation Description Date Details (start date - stop date) Never Smoker NA - NA Tobacco Use/Smoking Question Answer Notes Patient is a nonsmoker AUDIT-C (Standard) Question Answer Notes Did you have a drink containing alcohol in the p ast year? No Points 0 Interpretation Negative Vital Signs Blood pressure systolic 130 mm Hg 02/28/20 24 Blood pressure diastolic 70 mm Hg 024 Height 71 in 02/28/2024 Weight 222 lbs 02/28/2024 BMI 30.96 kg/m2 02/28/2024 Encounters Encounter Location Date Provider Diagnosis [facility] [address] [place] [address] 02/28/2024 Humberto Paul Well adult Z00.0 0 Assessments Encounter Date Diagnosis (ICD Code) Assessment Notes Treatment Notes Treatment Clinical Notes Section Notes 02/28/2024 Well adult (ICD-10 - Z00.00) Plan Of Treatment Medication Medication Name Sig Start Date Stop Date Notes Ambien 10 MG 1 tablet at bedtime as needed Orally Once a day 02/28/2024 Pending Test Test Name Order Date CMP (COMPLETE METABOLIC PANEL) 4 HEMOGLOBIN A1C (GLYCO) 02/28/2024 INSULIN, TOTAL 02/28/2024 LIPID PANEL (CHOL/TRIG/HDL/LDL) 02/28/20 24 CBC WITH DIFF 02/28/2024 URIC ACID 02/28/2024 PSA, TOTAL 02/28/2024 THYROID PANEL (T4/TSH/FREE T3) 4 Progress Notes * Cj ARMENDARIZ LDOB:1965 (58 yo M)Acc No.[id number]:02/28/2024 Progress Note Patient: Cj KIRBY Provider: Ector Paul ([facility])MD :1965 A ge:58 Y S ex:Male Date:02/28/2024 Address:[address] [place], [place] [id number] Check In:09:18 AM ESTCheck O ut:10:08 AM EST Subjective: * Chief Complaints: * a nnual Wellness * HPI: G eneral: ambetn stil ehlping sleep - doign repatha - no issues PH - on flomax - also for kidney stone. * ROS: E ENT: hearing changes d enies. v isual changes d enies.?non-healing mouth sores d enies. s wollen glands or neck lumps d enies. h oarseness d enies. s ore throat d enies. d ifficulty swallowing d enies. n ose bleeds d enies. n magda congestion d enies. e ar ache d enies. e ar discharge?denies. r inging in ears d enies. l ight sensitivity d enies. e ye pain d enies. b lurring d enies. e ye irritation d enies. d ouble vision d enies.?vision loss d enies. G eneral/Constitutional: Sweats: D enies. F atigue d enies. S leep problems d enies. A norexia d enies. M alaise d enies. W eight loss d enies.?Fatigue or Weakness d enies. F ever or Chills d enies. C ardiovascular: Shortness of Breath w/lying flat d enies. L ightheadedness/dizziness d enies. C hest tightness/ heavy pressure d enies. S welling of legs, ankles, or feet d enies. W aking up with shortness of breath d enies. C hest pain denies. P alpitations d enies. W eight gain d enies. R espiratory: Chronic or frequent cough d enies. C oughing up blood?denies. D ifficulty breathing d enies. P roductive cough d enies. S noring?denies. S hortness of breath that awakens from sleep (PND) d enies. C hest pain d enies. S putum production d enies. W heezing d enies. M usculoskeletal: Joint pain d enies. J oint Fluid d enies. B ack pain d enies. K nee pain d enies. N patrizia pain d enies. J oint Stiffness d enies. M uscle cramps d enies. W eakness of muscles d enies. A rthritis d enies. M uscle aches d enies. P ain in shoulder(s) d enies. S wollen joints d enies. * Active Problem List N20.0 Calculus of kidney Modified On:11/10/2022/U Status:confirmed E66.3 Over weight Modified On:01/26/2023U Status:confirmed K52.9 Colitis Modified On:01/26/2023U Status:confirmed L73.9 Folliculitis Modified On:01/26/2023/U Status:confirmed M94.0 Costochondritis Modified On:01/26/2023/U Status:confirmed G47.00 Insomnia Modified On:01/26/2023/U Status:confirmed R00.2 Palpitations Modified On:11/16/2023W/U Status:confirmed K58.9 IBS (irritable bowel syndrome) Modified On:01/26/2023W/U Status:confirmed E78.00 Pure hypercholestero lemia Modified On:01/26/2023/U Status:confirmed Z00.00 Well adult Modified On:02/10/2023W/U Status:confirmed * Medical History: * Surgical History: b reast mass removed distal bicep tendon repair kidney stones 2022 * Hospitalization/Major Diagno stic Procedure: N o Hospitalization History. * Family History: F ather: alive, Carotid Stenosis, PVD, diagnosed with Diabetes mellitus without mention of complication, type II or unspecified type, not stated as uncontrolled, Unspecified polyarthropathy or polyarthritis, pelvic region and thigh. M other: , lung cancer, diagnosed with Other malignant neoplasm of unspecified site, Diabetes mellitus without mention of complication, type II or unspecified type, not stated as uncontrolled, Unspecified heart disease. B rother(s): alive, diagnosed with Diabetes mellitus without mention of complication, type II or unspecified type, not stated as uncontrolled. S ister(s): alive, lung cancer, diagnosed with Other malignant neoplasm of unspecified site. 1 brother(s) , 2 sister(s) - healthy. . * Social History: T obacco Use: T obacco Use/Smoking P atient is a n onsmoker D rug/Alcohol: A MEGAN-C (Standard) D id you have a drink containing alcohol in the past year? N o P oints 0 I nterpretation N egative * Medications: T akingAmbien(Zolpidem Tartrate) 10 MG Tablet 1 tablet at bedtime as needed Orally Once a day Flomax(Tamsulosin HCl) 0.4 MG Capsule 1 capsule Orally Once a day Repatha SureClick(Evolocumab) 140 MG/ML Solution Auto-injector administer 1 ml Subcutaneous q 2 weeks Triamcinolone Acetonide 0.1 % Ointment 1 application Externally Twice a day Medication List reviewed and reconciled with the patientTaking Ambien(Zolpidem Tartrate) 10 MG Tablet 1 tablet at bedtime as needed Orally Once a day Taking Flomax(Tamsulosin HCl) 0.4 MG Capsule 1 capsule Orally Once a day Taking Repatha SureClick(Evolocumab) 140 MG/ML Solution Auto-injector administer 1 ml Subcutaneous q 2 weeks Taking Triamcinolone Acetonide 0.1 % Ointment 1 application Externally Twice a day Medication List reviewed and reconciled with the patient * Allergies: N .K.D.A.no[Allergies Verified] Objective: * Vitals: W t:222lbs, Ht: 71 in, BP:130/70mm Hg, BMI:30.96Index, Ht-cm: 180.34 cm, Wt-k.7 kg. * Examination: P hysical Exam: GENERAL: w ell developed, well nourished, in no acute distress. HEAD: n ormocephalic/atraumatic. EYES: p upils equal, round and reactive to light, conjunctivae and sclerae normal. EARS: n o deformity or lesion of external ear, canals and TM appear normal bilaterally, TM's intact, not inflamed with normal light reflex, hearing grossly normal to conversational speech. NOSE: n o deformity, discharge, inflammation, or lesions.? MOUTH: m ucous membranes moist, normal oropharynx and posterior pharynx without lesions or exudates, tongue normal, dentition normal. NECK: n patrizia supple, no masses or palpable cervical nodes, trachea midline, thyroid without nodules, masses, tenderness, or enlargement. CHEST: n o chest wall deformity, no chest wall tenderness.? LUNGS: n ormal respiratory effort and clear to auscultation, no wheezes, rales, or rhonchi, good air exchange. CARDIO: r egular rate and rhythm, normal S1 and S2, nor murmur, rub, or gallop. PULSES: n ormal capillary refill. ABDOMEN: s oft, non-distended, non-tender, no masses. MUSCULOSKELETAL: n o deformity or scoliosis noted, normal range of motion, joints normal, no erythema, edema, effusion, or ecchymosis. EXTREMITY: n o clubbing, cyanosis, edema, or deformity with normal ROM in both upper and lower bilateral extremities. NEUROLOGIC: g rossly normal. SKIN: n o rashes, ulcerations, or suspicious lesions. LYMPH NODES: n o cervical adenopathy, nodes normal. MENTAL STATUS: a lert and oriented x3, normal mood and affect. Assessment: * Assessment: 1. W ell adult - Z00.00 (Primary) Plan: * Treatment: * Procedure Codes: * Preventive Medicine: Screenings/Counseling: B KS ACTION PLAN Above Normal BMI Follow-up D ietary management education, guidance, and counseling * * Sign off status: Completed Visit Status: C HK (Check Out) true * Provider: Ector Paul ([facility])MD Date: 04/30/2023 Generated for Printi ng/Faxing/eTransmitting on: 0 10/11/2024 04:42 PM EDT History and Physical Notes * HPI (History of Present Illness) Category Sub-Category Detail Notes Category Not es General ambetn stil ehlping sleep - doign repatha - no issues PH - on flomax - also for kidney stone Examination Category Sub-Category Detail Notes Category Not es Physical Exam GENERAL: well developed, well nourished, in no acute distress HEAD: normocephalic/atraum atic EYES: pupils equal, round and reactive to light, conjunctivae and sclerae normal EARS: no deformity or lesi on of external ear, canals and TM appear normal bilaterally, TM's intact, not inflamed with normal light reflex, hearing grossly normal to conversational speech NOSE: no deformity, discha rge, inflammation, or lesions MOUTH: mucous membranes amy st, normal oropharynx and posterior pharynx without lesions or exudates, tongue normal, dentition normal NECK: neck supple, no mass es or palpable cervical nodes, trachea midline, thyroid without nodules, masses, tenderness, or enlargement CHEST: no chest wall deform ity, no chest wall tenderness LUNGS: normal respiratory e ffort and clear to auscultation, no wheezes, rales, or rhonchi, good air exchange CARDIO: regular rate and rhy thm, normal S1 and S2, nor murmur, rub, or gallop PULSES: normal capillary ref ill ABDOMEN: soft, non-distended, non-tender, no masses RECTAL: MUSCULOSKELETAL: no deformity or scol iosis noted, normal range of motion, joints normal, no erythema, edema, effusion, or ecchymosis EXTREMITY: no clubbing, cyanosi s, edema, or deformity with normal ROM in both upper and lower bilateral extremities NEUROLOGIC: grossly normal SKIN: no rashes, ulceratio ns, or suspicious lesions LYMPH NODES: no cervical adenopat hy, nodes normal MENTAL STATUS: alert and oriented x 3, normal mood and affect
--- OUTSIDE RECORDS SUMMARY | 2024-02-28 11:59 | XMS_ITS ---
Author Organization The [facility] in [place] Address [address] [place] [address] Care Team Providers Care Shell Sorter Name Role Phone Humberto Paul Primary Care Provider [phone] REASON FOR VISIT Lab Results- Encounters Encounter Location Date Provider Diagnosis [facility] [address] [place] [address] 02/28/2024 Humberto Paul Plan Of Treatment No Information Progress Notes * Cj ARMENDARIZ LDOB:1965 (58 yo M)Acc No.[id number]:02/28/2024 Patient: Cj KIRBY :1965 A ge:58 Y S ex:Male Address:[address] [place] [address] , [place] [address] * true * Date: Generated for Harpal deng/Jose/eTransmitting on: 0 10/11/2024 04:42 PM EDT
--- OUTSIDE RECORDS SUMMARY | 2024-04-25 07:47 | XMS_ITS ---
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 Name Role Phone Humberto Paul Primary Care Provider REASON FOR VISIT rf Zolpidem Medications Medication SIG (Take, Route, Frequency, Duration) Notes Start Date End Date Status Ambien 10 MG 1 tablet at bedtime as needed Orally Once a day 04/25/2024 Active Encounters Encounter Location Date Provider Diagnosis [address] [address] 04/25/2024 Humberto Paul Well adult Z00.0 0 Assessments Encounter Date Diagnosis (ICD Code) Assessment Notes Treatment Notes Treatment Clinical Notes Section Notes 04/25/2024 Well adult (ICD-10 - Z00.00) Plan Of Treatment Medication Medication Name Sig Start Date Stop Date Notes Ambien 10 MG 1 tablet at bedtime as needed Orally Once a day 04/25/2024 Progress Notes * Cj ARMENDARIZ LDOB:1965 (58 yo M)Acc No.[id number]:04/25/2024 Patient: Cj KIRBY :1965 A ge:58 Y S ex:Male Address:[address] [place] [address] , [place] [address] * Refills Refill Ambien Tablet, 10 MG, Orally, 30, 1 tablet at bedtime as needed, Once a day, Refills=0 * true * Date: Generated for Printi ng/Faxing/[place]ane on: 0 10/11/2024 04:42 PM EDT
--- OUTSIDE RECORDS SUMMARY | 2024-10-11 16:45 | XMS_ITS | Encounter Summary ---
Author Organization [facility] Address [address] [place] [address] Care Team Providers Care Superintendent Geophysical Laboratory Name Role Phone Preston Paul MD Primary Care Provider [phone] Encounter Details Date Type Department Care Team (Late st Contact Info) Description 01/31/2023 Abstract [facility] [address] [place] [id number] Buzz Grissom D[facility]ee [address] [place] [address] Social History Tobacco Use Types Packs/Day Years Used Date Smoking Tobacco: Never Alcohol Use Standard Drinks/Week Comments Yes 2 (1 standard drink = 0.6 oz pur e alcohol) monthly AUDIT-C Answer Date Recorded Q1: How often do you have a drink containing alc ohol? Monthly or less 01/20/2023 Q2: How many drinks containi ng alcohol do you have on a typical day when you are drinking? 1 or 2 01/20/2023 Frequency of Binge Drinking Not on file 01/11 Sex and Gender Information Value Date Recorded Sex Assigned at Male 01/16/2023 10:02 AM EST Legal Sex Male 6:44 PM EDT Gender Identity Male 01/16/2023 10:02 AM EST Sexual Orientation Straight 01/16/2023 10 :02 AM EST documented as of this encounter Plan of Treatment Not on file documented as of this encounter Visit Diagnoses Not on filedocumented in this encounter Care Teams Superintendent Geophysical Laboratory Relationship Specialty Start Date End Date Preston Paul MD PCP - General Family Medicine 01/23/23 documented as of this encounter
--- OUTSIDE RECORDS SUMMARY | 2024-10-11 16:45 | XMS_ITS | Patient Health Record ---
Author Organization [facility] [place] Address [address] [place] [address] Care Team Providers Care Table Machine Operator Name Role Phone Humberto Paul Primary Care Provider [phone] Allergies No Known Allergies Results Component Value Reference Range Notes FREE T3 Reviewed date:02/28/2024 03:59:26 PM Interpretation: Performing Lab: Notes/Report: [facility] , Free T3 3.03 2.18-3.98 pg/mL Performing Lab: see note ML - [facility] LB GLYCOHEMOGLOBIN A1C Reviewed date:02/28/2024 03:59:26 PM Interpretation: Performing Lab: Notes/Report: [facility] , Glycohemoglobin A1C 5.9 4.5-6.2 % > 7.0 ACTION SUGGESTED ADA THERAPEUTIC TARGET < 7.0 ADA RECOMMENDED LIMIT 4.0 - 6.0 Estimated Average Glucose 123 Performing Lab: see note ML - [facility] LB LIPID PROFILE Reviewed date:02/28/2024 03:59:26 PM Interpretation: Performing Lab: Notes/Report: [facility] , Triglycerides 104 <=150 mg/dL Cholesterol 172 <=200 mg/dL HDL Cholesterol 47 40-60 mg/dL > or =60 mg/dl - LOW CARDIOVASCULAR RISK <40 mg/dl - HIGH CARDIOVASCULAR RISK LDL Cholesterol Calculated 104.2 >190 mg/dl VERY HIGH 100-129 mg/dl NEAR OR ABOVE OPTIMAL 160-189 mg/dl HIGH 130-159 mg/dl BORDERLINE HIGH <100 mg/dl OPTIMAL VLDL CHOLESTEROL 20.8 Chol HDL Ratio 3.7 3.3 - 4.4 LOW RISK >11.0 HIGH RISK 7.1 - 11.0 MODERATE RISK 4.4 - 7.1 AVERAGE RISK Performing Lab: see note ML - [facility] LB T4 Reviewed date:02/28/2024 03:59:26 PM Interpretation: Performing Lab: Notes/Report: [facility] , T4 Thyroxine 6.00 4.50-12.10 ug/dL Performing Lab: see note ML - [facility] LB TSH Reviewed date:02/28/2024 03:59:26 PM Interpretation: Performing Lab: Notes/Report: [facility] , Thyroid Stimulating Hormone 2.866 0.358-3.740 uIU/mL Performing Lab: see note ML - [facility] LB URIC ACID SERUM Reviewed date:02/28/2024 03:59:26 PM Interpretation: Performing Lab: Notes/Report: [facility] , Uric Acid 6.1 3.5-7.2 mg/dL Performing Lab: see note ML - [facility] LB XR abdomen 1V Reviewed date:10/10/2024 12:53:26 PM Interpretation: Performing Lab: Notes/Report: Source Facility: [place] [address] [place] [address] XRay Report Signed Patient: MARKEL ARMENDARIZ MR#: [id number] : 1965 Acct:[id number] Age/Sex: 59 / M ADM Date: 10/09/24 Loc: LAB Attending Dr: Markie Jaramillo M.D. Ordering Physician: Markie Jaramillo M.D. Date of Service: 10/09/24 Procedure(s): XR abdomen 1V Accession Number(s): [id number] cc: Preston Paul M.D.; Markie Jaramillo M.D. The [place] [address] Patient Name: MARKEL AMRENDARIZ MRN: [id number] date: 1965 Sex: M Assigned Patient Location: LAB Current Patient Location: Accession/Order Number: [id number] Exam Date: 10/10/2024 09:42 Report Date: 10/10/2024 09:42 At the request of: MARKIE JARAMILLO MD Procedure: XR abdomen 1V KUB: CLINICAL INFORMATION: Kidney stone follow-up COMPARISON: KUB 07/11/2023 FINDINGS: No suspicious urinary tract calculus. Moderate stool burden. No bowel obstruction or free air. XR/XR abdomen 1V IMPRESSION: NO SUSPICIOUS URINARY TRACT CALCULUS. CONSTIPATION. Impression dictated by: Naresh Mcdonald Jr., D.O. 10/10/2024 9:42 AM Dictation Location: [place] [address] Electronically authenticated by: [id number] Y Date: 10/10/2024 09:42 Dictated By: Naresh Mcdonlad M.D. Signed By: 10/10/2445 DD/ 1 TD/TT: Shredded Filler Machine Wrapper Layer: [place] [address] XRay Report Signed Patient: MARKEL ARMENDARIZ MR#: [id number] : 1965 Acct:[id number] Age/Sex: 59 / M ADM Date: 10/09/24 Loc: LAB Attending Dr: Alfred Jaramillo M.D. Ordering Physician: Markie Jaramillo M.D. Date of Service: 10/09/24 Procedure(s): XR abdomen 1V Accession Number(s): [id number] cc: Preston Paul M.D. ; Markie Jaramillo M.D. [place] [id number] Patient Name: MARKEL ARMENDARIZ MRN: [id number] date: 1965 Sex: M Assigned Patient Location: LAB Current Patient Location: Accession/Order Number: [id number] Exam Date: 10/10/2024 09:42 Report Date: 10/10/2024 09:42 At the request of: MARKIE JARAMILLO MD Procedure: XR abdome n 1V KUB: CLINICAL INFORMATION : Kidney stone follow-up COMPARISON: KUB 07/11/2023 FINDINGS: No suspicious urinary tract calculus. Moderate stool burden. No bowel obstruction or free air. XR/XR abdomen 1V IMPRESSION: NO SUSPICIOUS URINAR Y TRACT CALCULUS. CONSTIPATION. Impression dictated by: Naresh Mcdoanld Jr., D.O. 10/10/2024 9:42 AM Dictation Location: [place] [address] Electronically authenticated by: [id number] Y Date: 10/10/2024 09:42 Dictated By: Naresh Mcdonald M.D. Signed By: 10/10/24944 DD/ 1 TD/TT: Shredded Filler Machine Wrapper Layer: PROF Foster(COMP METB) Reviewed date:02/28/2024 03:59:26 PM Interpretation: Performing Lab: Notes/Report: [facility] [place] [facility] , Sodium 140 136-145 mmol/L Potassium 4.3 3.5-5.1 mmol/L Chloride 103 98-107 mmol/L Carbon Dioxide 31.3 21.0-32.0 mmol/L Anion Gap 10.0 Glucose 115 74-106 mg/dL Blood Urea Nitrogen 18.0 7.0-18.0 mg/dL Creatinine 1.02 0.70-1.30 mg/dL Estimated GFR ( [place] >60 >=60 mL/min/1.73m 2 Estimated GFR (Non- Bettie >60 >=60 mL/min/1.73m 2 BUN Creatinine Ratio 17.6 Calcium 9.1 8.5-10.1 mg/dL Bilirubin Total 0.9 0.2-1.0 mg/dL Aspartate Amino Transferase 31 15-37 U/L Alanine Aminotransferase 60 16-63 U/L Alkaline Phosphatase 51 46-116 U/L Total Protein 6.9 6.4-8.2 g/dL Albumin Level 3.9 3.4-5.0 g/dL Globulin 3.0 Albumin Globulin Ratio 1.3 Performing Lab: see note ML - [facility] LB INSULIN Reviewed date:02/29/2024 02:51:32 PM Interpretation: Performing Lab: Notes/Report: [facility] , Insulin 11.2 2.6-24.9 uIU/mL [facility]formed at: [facility] Technician: Noe Manriquez PhD, Phone: [phone] [address] [place], [place] [id number] Performing Lab: see note LC - [facility] LB CBC AUTO DIFF Reviewed date:02/28/2024 03:59:26 PM Interpretation: Performing Lab: Notes/Report: [facility] , White Blood Count 5.4 4.0-11.0 10 3/uL Red Blood Count 5.43 4.70-6.10 10 6/uL Hemoglobin 16.3 14.0-18.0 g/dL Hematocrit 47.0 42.0-54.0 % Mean Corpuscular Volume 86.6 80.0-94.0 fL Mean Corpuscular Hemoglobin 30.0 25.9-34.0 pg Mean Corpuscular HGB Conc 34.7 29.9-35.2 g/dL Red Cell Distribution Width 12.1 11.0-15.0 % Platelet Count 211 150-450 10 3/uL Mean Platelet Volume 9.3 9.5-13.5 fL Neutrophils Percent Auto 69.1 43.0-75.0 % Lymphocytes Percent Auto 20.5 20.5-60.0 % Monocytes Percent Auto 8.0 1.7-12.0 % Eosinophils Percent Auto 1.3 0.9-7.0 % Basophils Percent Auto 0.7 0.2-2.0 % Immature Granulocytes Pct Auto 0.4 0.0-0.5 % Neutrophils Absolute Auto 3.7 1.4-6.5 10 3/uL Lymphocytes Absolute Auto 1.1 1.2-3.8 10 3/uL Monocytes Absolute Auto 0.4 0.3-0.8 10 3/uL Eosinophils Absolute Auto 0.1 0.0-0.7 10 3/uL Basophils Absolute Auto 0.0 0.0-0.1 10 3/uL Immature Granulocytes Abs Auto 0.02 0.00-0.03 10 3/uL Performing Lab: see note - [facility] PSA SCREENING Reviewed date:02/28/2024 03:59:26 PM Interpretation: Performing Lab: Notes/Report: [facility] , Prostate Specific Antigen Scrn 0.98 <=4.00 ng/mL Performing Lab: see note - [facility] LB PSA Reviewed date:10/09/2024 11:01:06 PM Interpretation: Performing Lab: Notes/Report: [facility] , Prostate Specific Antigen Dx 0.82 <=4.00 ng/mL Performing Lab: see note - [facility] Reason For Referral No Information Medications Medication SIG (Take, Route, Frequency, Duration) [...] needed Orally Once a day 04/25/2024 Active Social History Tobacco Use: Social History Observation Description Date Details (start date - stop date) Never Smoker NA - NA Tobacco Use/Smoking Question Answer Notes Patient is a nonsmoker Alcohol Screen (Audit-C) Question Answer Notes Did you have a drink containing alcohol in the p ast year? No Points 0 Interpretation Negative AUDIT-C (Standard) Question Answer Notes Did you have a drink containing alcohol in the p ast year? No Points 0 Interpretation Negative Problems Problem Type SNOMED Code ICD Code Onset Dates Problem Status W/U Status Risk Notes Problem 36077645 Calculus of kidn ey (N20.0) Active confirmed Problem Palpitations (22812960) Palpitations (R00.2) Active confirmed Problem Insomnia (210720147) Insomnia (G47.00) Active c onfirmed Problem Irritable bowel syndrome (61177502) IBS (irritable bowel syndrome) (K58.9) Active confirmed Problem Colitis (01732010) Colitis (K52.9) Active confi rmed Problem Well adult (995100489) Well adult (Z00.00) Active confirmed Problem Folliculitis (87115881) Folliculitis (L73.9) Active confirmed Problem Costochondritis (93412339) Costochondritis (M94.0) Active confirmed Problem Overweight (611610662) Over weight (E66.3) Active confirmed Problem Pure hypercholesterolemia (972783632) Pure hypercholesterolemia (E78.00) Active confirmed Vital Signs Blood pressure diastolic 70 mm Hg 02/28/2024 Height 71 in 02/28/2024 Blood pressure systolic 130 mm Hg 02/28/2024 Weight 222 lbs 02/28/2024 BMI 30.96 kg/m2 02/28/2024 Encounters Encounter Location Date Provider Diagnosis [facility] [address] [place] [address] 02/28/2024 Humberto Hoy Well adult Z00.0 0 [facility] [address] [place] [address] 02/12/2024 Humberto Paul Well adult Z00.0 0 [facility] [address] [place] [address] 02/28/2024 Humberto Paul [facility] [address] [place] [address] 04/25/2024 Humberto Paul Well adult Z00.0 0 Assessments Encounter Date Diagnosis (ICD Code) Assessment Notes Treatment Notes Treatment Clinical Notes Section Notes 02/28/2024 Well adult (ICD-10 - Z00.00) 02/12/2024 Well adult (ICD-10 - Z00.00) 04/25/2024 Well adult (ICD-10 - Z00.00) Plan Of Treatment Pending Test Test Name Order Date CMP (COMPLETE METABOLIC PANEL) 3 CMP (COMPLETE METABOLIC PANEL) 4 HEMOGLOBIN A1C (GLYCO) 02/10/2023 HEMOGLOBIN A1C (GLYCO) 02/28/2024 INSULIN, TOTAL 02/28/2024 INSULIN, TOTAL 02/10/2023 LIPID PANEL (CHOL/TRIG/HDL/LDL) 02/28/20 24 LIPID PANEL (CHOL/TRIG/HDL/LDL) 02/11/20 23 CBC WITH DIFF 02/10/2023 CBC WITH DIFF 02/28/2024 PSA, PROSTATE-SPECIFIC ANTIGEN 3 URIC ACID 02/10/2023 URIC ACID 02/28/2024 PSA, TOTAL 02/28/2024 THYROID PANEL (T4/TSH/FREE T3) 4 THYROID PANEL (T4/TSH/FREE T3) 3 Insurance Providers Payer Name Payer Address Payer Phone Subscriber Number Group Number Insured Name Patient Relationship to Insured Coverage Start Date Coverage End Date [employer] [address] [address] [place] [address] [phone] [id number] Markel Armendariz Self - patient is the insured 3 Medical (General) History Medical History History ICD Code Calculus of kidney N20.0 Over weight E66.3 Colitis K52.9 Folliculitis L73.9 Costochondritis M94.0 Insomnia G47.00 Palpitations R00.2 IBS (irritable bowel syndrome) K58.9 Pure hypercholesterolemia E78.00 Surgical History Surgery Date(Month/Year) breast mass removed kidney stones 2022 distal bicep tendon repair
--- OUTSIDE RECORDS SUMMARY | 2024-10-11 16:45 | XMS_ITS | Encounter Summary ---
Author Organization [facility] Address [address] [place] [address] Care Team Providers Care Information Technology Internship Name Role Phone Preston [place] MD Primary Care Provider [phone] Encounter Details Date Type Department Care Team (Late st Contact Info) Description 04/21/2023 Abstract [facility] [address] [place] [phone] Buzz Grissom [facility] [address] [place] [address] Social History Tobacco Use Types Packs/Day Years [...] on filedocumented in this encounter Care Teams Information Technology Internship Relationship Specialty Start Date End Date Preston Paul MD PCP - General Family Medicine 01/23/23 documented as of this encounter
--- OUTSIDE RECORDS SUMMARY | 2024-10-11 16:45 | XMS_ITS | Clinical Summary ---
Author Organization [facility] Address [address] [place] [address] Care Team Providers Care Dietetic Tech Name Role Phone Preston [place] MD Primary Care Provider [phone] Allergies Active Allergy Reactions Criticality Noted Date Comments Pollen Extract Unknown 01/23/2023 Medications tamsulosin (Flomax) 0.4 MG 24 hr capsule TAKE 1 CAPSULE EVERY NIGHT AT BEDTIME DAILY Active zolpidem (Ambien) 10 MG tablet TAKE 1 TABLET BY MOUTH EVERY NIGHT NEEDED FOR INSOMNIA Active Repatha SureClick 140 MG/ML injection ADMINISTER 1 ML UNDER THE SKIN EVERY 2 WEEKS Active Encounters Date Type Department Care Team Description 07/11/2024 Telephone [facility] [address] [place] [address] Buzz Grissom, DPM Advice Only (Recent injection) from Last 3 Months Immunizations Immunization Administration Dates Next Due Influenza, [id number] 12/05/2016 Influenza, Unspecified 12/05/2016 Influenza, injectable, quadrivalent, preservativ e free 11/16/2022,11/25/2019 Influenza, injectable, quadr ivalent, preservative free, pediatric 11/21/2021 Influenza, seasonal, injectable 12/17/2020,01/30 Influenza, seasonal, injectable, preservative fr ee 03/11/2015 SARS-COV-2 (COVID-19) vaccin e, mRNA, spike protein, LNP, PF, 50 mcg/0.5 mL 12/02/2022 Tdap 11/21/2021 Zoster, Recombinant 05/13/2019,03/14/2019 Family History Medical History Relation Name Comments Diabetes Father Lindsey Hearing loss Father Lindsey Hypertension Father Lindsey Stroke Father Lindsey Cancer Mother Rhiannon Diabetes Mother Rhiannon Heart disease Mother Rhiannon Vision loss Mother Rhiannon Relation Name Status Comments Father Lindsey Alive Mother Rhinanon Social History Tobacco Use Types Packs/Day Years [...] Orientation Straight 01/16/2023 10 :02 AM EST Last Filed Vital Signs Vital Sign Reading Time Taken Comments Blood Pressure 120/71 10/03/2018 12:00 PM EDT Pulse - - Temperature - - Respiratory Rate - - Oxygen Saturation - - Inhaled Oxygen Concentration - - Weight 104 kg (230 lb) 06/25/2024 3:07 PM EDT Height 180.3 cm (5' 11 ) 06/25/2024 3:07 PM EDT Body Mass Index 32.08 06/25/2024 3:07 PM EDT Plan of Treatment Health Maintenance Due Date Last Done Comments CT Colonography 1965 Colonoscopy 1965 Colorectal Cancer Screening 1965 FIT-DNA 1965 FIT 1965 FOBT 1965 Sigmoidoscopy 1965 Influenza Vaccine (#1) 2024 4, 11/16/2022, 11/21/2021, Additional history exists Insurance [employer] Care Teams Dietetic Tech Relationship Specialty Start Date End Date Preston Paul MD PCP - General Family Medicine 01/23/23
--- OUTSIDE RECORDS SUMMARY | 2024-10-11 16:45 | XMS_ITS | Clinical Summary ---
Author Organization [facility] tem Address [id number] [address] [place] [address] Care Team Providers Care Bookkeeping Manager Name Role Phone Preston [place] MD Primary Care Provider [phone] Allergies No known active allergies Medications diclofenac (VOLTAREN) 25 mg EC tablet Take 25 mg by mouth 2 (two) times a day. Active evolocumab (REPATHA SYRINGE) 140 mg/mL syringe Inject 140 mg under the skin every 14 (fourteen) days. Active zolpidem (AMBIEN) 10 mg tablet Take 10 mg by mouth nightly as needed for sleep. Active Family History Medical History Relation Name Comments Coronary artery disease Father Stroke Father Cancer Mother lung Heart disease Mother Heart failure Mother Relation Name Status Comments Father Alive Mother Social History Tobacco Use Types Packs/Day Years Used Date Smoking Tobacco: Never Smokeless Tobacco: Never Alcohol Use Standard Drinks/Week Comments Yes 0 (1 standard drink = 0.6 oz pur e alcohol) rare Childcare Answer Date Recorded Childcare Unknown 08/22/2018 Employment Answer Date Recorded Employment Unknown 08/22/2018 Purpose - Life Answer Date Recorded Purpose and direction in life Unknown Sex and Gender Information Value Date Recorded Sex Assigned at Not on file Legal Sex Male 11:43 AM EDT Gender Identity Not on file Sexual Orientation Not on file Last Filed Vital Signs Vital Sign Reading Time Taken Comments Blood Pressure 125/86 10/10/2018 5:00 PM EDT Pulse 70 10/10/2018 4:05 PM EDT Temperature 36 C (96.8 F) 10/10/2018 3:30 PM EDT Respiratory Rate 12 10/10/2018 4:00 PM EDT Oxygen Saturation 96% 10/10/2018 5:00 PM EDT Inhaled Oxygen Concentration - - Weight 107 kg (236 lb) 10/10/2018 12:06 PM EDT Height 180.3 cm (5' 11 ) 10/10/2018 12:06 PM EDT Body Mass Index 32.92 10/10/2018 12:06 PM EDT Plan of Treatment Health Maintenance Due Date Last Done Comments Depression Screening 1978 Tobacco Screening 1978 Adult BMI Screening 1984 DTaP,Tdap and Td Vaccines (1 - Tdap) 1985 Zoster (Shingles) Vaccine (1 of 2) 2016 Influenza Vaccine 11/11/2024 Medical Devices Implanted Type Area Head Bucker Device Identifier Shelf Expiration Date Model / Serial / Lot Impl Dlv Sys Distal Biceps Bc - Sn/A - [id number] Implanted:Qty: 1 on 10/10/2018 by Cliff Rowell DO at [facility] [place] Right: Arm [employer] 11/11/2019 [id number] / N/A / [id number] Insurance [employer] Care Teams Bookkeeping Manager Relationship Specialty Start Date End Date Preston Paul MD PCP - General Family Medicine 10/09/18
[2024-10-11 17:06] LABS: Blood Urea Nitrogen 21.0 mg/dL (7.0-18.0); Calcium 9.2 mg/dL (8.5-10.1); Carbon Dioxide 30.4 mmol/L (21.0-32.0); Chloride 100 mmol/L (98-107); Estimated GFR (African America >60 (>=60 mL/min/1.73m^2); Estimated GFR (Non-African Ame >60 (>=60 mL/min/1.73m^2); Sodium 138 mmol/L (136-145); Uric Acid 6.0 mg/dL (3.5-7.2)
[2024-10-11 18:22] LABS: Calcium 24 Hour Urine 167.4 mg/24hr (100.0-300.0); Creatinine 24 Hour Urine 1960.75 mg/24 hr (1000.0-2000.00); Total Volume 24 Hour Urine 3100 mL/24hr
[2024-10-11 18:37] LABS: BOX Test Date Sent 8/1/25; BOX Test Reference Lab CLEVELAND CLINIC; BOX Test Sent Out 24HR UR OXALATE
[2024-10-13 07:07] LABS: Magnesium, U 3.9 mg/dL (Not Estab.); Magnesium,Urine 24hr 120.9 mg/24 hr (12.0-293.0); Phosphorus, Urine 26.9 mg/dL (Not Estab.); Phosphorus,Urine 24h 834 mg/24 hr (390-1425); Uric Acid, Urine 23.2 mg/dL (Not Estab.); Uric Acid,Urine 24hr 719.2 mg/24 hr (197.2-1078.7)
[2024-10-16 07:11] LABS: Citric Acid, U, 24hr 1442 mg/24 hr (320-1240); Citric Acid, Urine 465 mg/L (Undefined)
[2024-10-17 09:56] LABS: BOX Test Result 8/7/25
== END 2024-10-11 16:33 | disposition home or self-care (01) ==
LOC: LAB 16:32
PROVIDERS: PCP Family Medicine; Visit Provider Urology
DX: N20.0 Calculus of kidney (principal)
CPT/HCPCS: 36415; 82310; 82340; 82374; 82435; 82507; 82565; 82570; 83735; 83945; 83970; 84100; 84105; 84295; 84300; 84520; 84550; 84560

== ENCOUNTER 2025-01-03 09:27 | Outpatient (OUT) | payer OTHER, SELFPAY ==
--- OUTSIDE RECORDS SUMMARY | 2025-01-02 06:02 | XMS_ITS ---
Author Organization [facility] [place] Address [address] [place] [address] Care Team Providers Care Freight Car Inspector Name Role Phone Humberto Paul Primary Care Provider REASON FOR VISIT testosterone Encounters Encounter Location Date Provider Diagnosis [facility] [address] [place] [address] 01/02/2025 Humberto Paul Fatigue R53.83 Assessments Encounter Date Diagnosis (ICD Code) Assessment Notes Treatment Notes Treatment Clinical Notes Section Notes 01/02/2025 Fatigue (ICD-10 - R53.83) Plan Of Treatment Pending Test Test Name Order Date TESTOSTERONE, TOTAL 01/02/2025 Next Appt Details Provider Name:Humberto Paul, 04:00:00 PM, [address] [place], [address], Progress Notes * Cj ARMENDARIZ LDOB:1965 (59 yo M)Acc No.[id number]:01/02/2025 Patient:?Cj ARMENDARIZ :1965???Age:59 Y???Sex:MalePhone:[phone] Address:[address] [place] [address] Subjective: * Chief Complaints: * T estosterone * Medical History: * Surgical History: * Hospitalization/Major Diagno stic Procedure: * Medications: Objective: * Vitals: * Physical Examination: ??? Assessment: * Assessment: 1.?Fatigue - R53.83 (Primary)??? Plan: * Treatment: ?LAB: TESTOSTERONE, TOTAL * Procedure Codes: * true * Date:?Generated for Printing/Faxing/eTransmitting on:?01/03/2025 09:31 AM EDT
--- OUTSIDE RECORDS SUMMARY | 2025-01-03 09:31 | XMS_ITS | Patient Health Record ---
Author Organization [facility] [place] Address [address] [place] [address] Care Team Providers Care Cryptanalyst Name Role Phone Humberto Paul Primary Care Provider Allergies No Known Allergies Results Component Value Reference Range Notes PSA SCREENING Reviewed date:02/28/2024 03:59:26 PM Interpretation: Performing Lab: Notes/Report: [facility] , Prostate Specific Antigen Scrn 0.98 <=4.00 ng/ mL Performing Lab:see noteML - [facility] LBPSA Reviewed date:10/09/2024 11:01:06 PM Interpretation: Performing Lab: Notes/Report: [facility] ,Prostate Specific Antigen Dx0.82<=4.00 ng/mLPerforming Lab:see noteML - [facility] LBXR abdomen 1V Reviewed date:10/10/2024 12:53:26 PM Interpretation: Performing Lab: Notes/Report: Source Facility: [facility]-[address] [place] [address] XRay Report Signed Patient: MARKEL ARMENDARIZ MR#: [id number] : 1965 Acct:[id number] Age/Sex: 59 / M ADM Date: 10/09/24 Loc: LAB Attending Dr: Markie Jaramillo M.D. Ordering Physician: Markie Jaramillo M.D. Date of Service: 10/09/24 Procedure(s): XR abdomen 1V Accession Number(s): [id number] cc: Preston Paul M.D.; Markie Jaramillo M.D. [facility] [place] [id number] Patient Name: MARKEL ARMENDARIZ MRN: [id number] date: 1965 Sex: M Assigned Patient Location: LAB Current Patient Location: Accession/Order Number: [id number] Exam Date: 10/10/2024 09:42 Report Date: 10/10/2024 09:42 At the request of: MARKIE JARAMILLO MD Procedure: XR abdomen 1V KUB: CLINICAL INFORMATION: Kidney stone follow-up COMPARISON: KUB 07/11/2023 FINDINGS: No suspicious urinary tract calculus. Moderate stool burden. No bowel obstruction or free air. XR/XR abdomen 1V IMPRESSION: NO SUSPICIOUS URINARY TRACT CALCULUS. CONSTIPATION. Impression dictated by: Naresh Mcdonald Jr. D.OZuhair 10/10/2024 9:42 AM Dictation Location: [place] [address] Electronically authenticated by: [id number] Y Date: 10/10/2024 09:42 Dictated By: Naresh Mcdonald M.D. Signed By: 10/10/2445 DD/ TD/TT: Nursing Home Manager:WHIT Reviewed date:10/13/2024 08:05:31 PM Interpretation: Performing Lab: Notes/Report: [facility] ,Blood Urea Weqtqyzy16.07.0-18.0 mg/dLPerforming Lab:see noteML - [facility] LBCALCIUM Reviewed date:10/13/2024 08:05:31 PM Interpretation: Performing Lab: Notes/Report: [facility] ,Calcium9.28.5-10.1 mg/dLPerforming Lab:see noteML - [facility] LB CHLORIDE Reviewed date:10/13/2024 08:05:31 PM Interpretation: Performing Lab: Notes/Report: [facility] ,Fuwokevu15035-933 mmol/LPerforming Lab:see noteML - [facility] LBCO2 Reviewed date:10/13/2024 08:05:31 PM Interpretation: Performing Lab: Notes/Report: [facility] ,Carbon Byqycwx84.421.0-32.0 mmol/LPerforming Lab:see noteThe [facility] LBCREATININE Reviewed date:10/13/2024 08:05:31 PM Interpretation: Performing Lab: Notes/Report: [facility] ,Creatinine1.030.70-1.30 mg/dLEstimated GFR ( Socorro>60>=60 mL/min/1.73m 2Estimated GFR (Non- Bettie>60>=60 mL/min/1.73m 2Performing Lab:see noteThe [facility] LBNA Reviewed date:10/13/2024 08:05:31 PM Interpretation: Performing Lab: Notes/Report: [facility] ,Uewrvt471818-200 mmol/LPerforming Lab:see [facility] LB PHOSPHORUS Reviewed date:10/13/2024 08:05:31 PM Interpretation: Performing Lab: Notes/Report: [facility] ,Phosphorus4.12.6-4.7 mg/dLPerforming Lab:see noteThe [facility] LB URIC ACID SERUM Reviewed date:10/13/2024 08:05:31 PM Interpretation: Performing Lab: Notes/Report: [facility] ,Uric Acid6.03.5-7.2 mg/dLPerforming Lab:see [facility] LB PTH, Intact Reviewed date:10/13/2024 08:05:31 PM Interpretation: Performing Lab: Notes/Report: [facility] ,PTH, Smrpab2458-92 pg/mL Performed at: [facility] [address] [id number] Production Recovery Operator: Noe Manriquez PhD, Phone: [phone] Performing Lab:see [facility]LA[facility] LBCreatinine 24 Hour Urine Reviewed date:10/13/2024 08:05:31 PM Interpretation: Performing Lab: Notes/Report: [facility] ,Creatinine Urine Cujqpy27.2520.00-300.00 mg/dLTotal Volume 24 Hour Dzfpv3299 Creatinine 24 Hour Zdoos0970.762437.0-2000.00 mg/24 hrPerforming Lab:see noteThe [facility] LBCalcium 24 Hour Urine Reviewed date:10/13/2024 08:05:31 PM Interpretation: Performing Lab: Notes/Report: [facility] ,Calcium Urine Random5.45.1-21.0 mg/dLCalcium 24 Hour Cufvd865.4100.0-300.0 mg/24hrPerforming Lab:see noteML - [facility] LBSodium 24 Hour Urine Reviewed date:10/13/2024 08:05:31 PM Interpretation: Performing Lab: Notes/Report: [facility] ,Sodium Urine Roiift3945-14 mmol/LSodium 24 Hour Wzyme30885-100 mmol/24h Performing Lab:see noteML - [facility] LBCitric Acid (Citrate), Urine Reviewed date:10/16/2024 12:34:13 PM Interpretation: Performing Lab: Notes/Report: [facility] ,Citric Acid, Wygop809Ynzhsvcxw mg/L determined by [facility]. It has not been cleared or approved by the Food and Drug Administration. This test was developed and its performance characteristics Citric Acid, U, 09uy8152834-1208 mg/24 hr Production Recovery Operator: Slava Dozier MD, Phone: [phone] Performed at: [address] [id number] Performing Lab:see keyshawnLA[facility] LBPhosphorus, 24 hr Urine Reviewed date:10/13/2024 08:05:31 PM Interpretation: Performing Lab: Notes/Report: [facility] ,Phosphorus, Urine26.9Not Estab. mg/dLPhosphorus,Urine 12t120316-7434 mg/24 hr Performing Lab:see keyshawnLA[facility] LBUric Acid, 24 hr Urine Reviewed date:10/13/2024 08:05:31 PM Interpretation: Performing Lab: Notes/Report: [facility] ,Uric Acid, Urine23.2Not Estab. mg/dLUric Acid,Urine 95ef653.2197.2-1078.7 mg/24 hr Production Recovery Operator: Noe Manriquez PhD, Phone: [phone] [address] [place], [place] [phone] Performed at: [facility] Performing Lab:see keyshawnLA[facility] LBMagnesium, Urine Reviewed date:10/13/2024 08:05:31 PM Interpretation: Performing Lab: Notes/Report: [facility] ,Magnesium, U3.9Not Estab. mg/dLMagnesium,Urine 66ii929.912.0-293.0 mg/24 hr Performing Lab:see noteLC - [facility] LBBox Test Reviewed date:10/17/2024 09:58:07 PM Interpretation: Performing Lab: Notes/Report: UOXALD OXALATE,24H URINE [facility] ,BOX Test Sent Xlt84CD UR OXALATEBOX Test Reference LabMEMORIAL [facility]BOX Test Date Sent10/11/24BOX Test Result10/17/24Performing Lab:see noteML - [facility] LBURIC ACID SERUM Reviewed date:02/28/2024 03:59:26 PM Interpretation: Performing Lab: Notes/Report: [facility] ,Uric Acid6.13.5-7.2 mg/dLPerforming Lab:see noteML - [facility] LB TSH Reviewed date:02/28/2024 03:59:26 PM Interpretation: Performing Lab: Notes/Report: [facility] ,Thyroid Stimulating Hormone2.8660.358-3.740 uIU/mLPerforming Lab:see noteML - [facility] LBT4 Reviewed date:02/28/2024 03:59:26 PM Interpretation: Performing Lab: Notes/Report: [facility] ,T4 Thyroxine6.004.50-12.10 ug/dLPerforming Lab:see noteML - [facility] LBPROF 14(COMP METB) Reviewed date:02/28/2024 03:59:26 PM Interpretation: Performing Lab: Notes/Report: [facility] ,Rrwphl864789-336 mmol/LPotassium4.33.5-5.1 mmol/QAudxnzso89845-439 mmol/LCarbon Mnivwme74.321.0-32.0 mmol/LAnion Gap10.6Iytavdd54249-411 mg/dLBlood Urea Bgywaqdm95.07.0-18.0 mg/dLCreatinine1.020.70-1.30 mg/dLEstimated GFR ( Socorro>60>=60 mL/min/1.73m 2Estimated GFR (Non- Bettie>60>=60 mL/min/1.73m 2BUN Creatinine Ratio17.5Wumglos9.18.5-10.1 mg/dLBilirubin Total0.90.2-1.0 mg/dL Aspartate Amino Ifroowcqwsj5817-02 U/LAlanine Ajyacnhbhuxlxvhv8729-06 U/L Alkaline Pifxgiukfox0694-023 U/LTotal Protein6.96.4-8.2 g/dLAlbumin Level3.93.4- 5.0 g/dLGlobulin3.0Albumin Globulin Ratio1.3Performing Lab:see noteML - [facility] LBLIPID PROFILE Reviewed date:02/28/2024 03:59:26 PM Interpretation: Performing Lab: Notes/Report: [facility] ,Lisgmbrturjhk149<=150 mg/lQYnfopjputgh316<=200 mg/dLHDL Locsbnhbyht5336-30 mg/dL > or =60 mg/dl - LOW CARDIOVASCULAR RISK <40 mg/dl - HIGH CARDIOVASCULAR RISK LDL Cholesterol Xeoivyopum090.2 100-129 mg/dl NEAR OR ABOVE OPTIMAL >190 mg/dl VERY HIGH 160-189 mg/dl HIGH 130-159 mg/dl BORDERLINE HIGH <100 mg/dl OPTIMAL VLDL NIIFWIMZODL52.8Chol HDL Ratio3.7 3.3 - 4.4 LOW RISK >11.0 HIGH RISK 7.1 - 11.0 MODERATE RISK 4.4 - 7.1 AVERAGE RISK Performing Lab:see noteML - [facility] LBINSULIN Reviewed date:02/29/2024 02:51:32 PM Interpretation: Performing Lab: Notes/Report: [facility] ,Cuqyjpk17.22.6-24.9 uIU/mL Performed at: - [facility] [place] Production Recovery Operator: Noe Manriquez PhD, Phone: [phone] [address] [place], [place] [phone] Performing Lab:see keyshawn - [facility] LBGLYCOHEMOGLOBIN A1C Reviewed date:02/28/2024 03:59:26 PM Interpretation: Performing Lab: Notes/Report: [facility] ,Glycohemoglobin A1C5.94.5-6.2 % > 7.0 ACTION SUGGESTED ADA THERAPEUTIC TARGET < 7.0 ADA RECOMMENDED LIMIT 4.0 - 6.0 Estimated Average Oaymwgq683Iitvxnbiqu Lab:see noteML - [facility] LB FREE T3 Reviewed date:02/28/2024 03:59:26 PM Interpretation: Performing Lab: Notes/Report: [facility] ,Free T33.032.18-3.98 pg/mLPerforming Lab:see note - [facility] LB CBC AUTO DIFF Reviewed date:02/28/2024 03:59:26 PM Interpretation: Performing Lab: Notes/Report: [facility] ,White Blood Count5.44.0-11.0 10 3/uLRed Blood Count5.434.70-6.10 10 6/uL Pcynugkpvd95.314.0-18.0 g/yEAjussvmias77.042.0-54.0 %Mean Corpuscular Togopw21.6 80.0-94.0 fLMean Corpuscular Mbeeqdusnc40.025.9-34.0 pgMean Corpuscular HGB Conc 34.729.9-35.2 g/dLRed Cell Distribution Width12.111.0-15.0 %Platelet Olwdb989 150-450 10 3/uLMean Platelet Volume9.39.5-13.5 fLNeutrophils Percent Auto69.1 43.0-75.0 %Lymphocytes Percent Auto20.520.5-60.0 %Monocytes Percent Auto8.01.7- 12.0 %Eosinophils Percent Auto1.30.9-7.0 %Basophils Percent Auto0.70.2-2.0 % Immature Granulocytes Pct Auto0.40.0-0.5 %Neutrophils Absolute Auto3.71.4-6.5 10 3/uLLymphocytes Absolute Auto1.11.2-3.8 10 3/uLMonocytes Absolute Auto0.40.3-0.8 10 3/uLEosinophils Absolute Auto0.10.0-0.7 10 3/uLBasophils Absolute Auto0.00.0- 0.1 10 3/uLImmature Granulocytes Abs Auto0.020.00-0.03 10 3/uLPerforming Lab:see noteML - [facility] LB Reason For Referral No Information Medications Medication SIG (Take, Route, Frequency, Duration) Notes Start Date End Date Status Repatha SureClick 140 MG/ML administer 1 ml Subcutaneous q 2 weeks; Duration: 90 days ActiveTriamcinolone Acetonide 0.1 %1 application Externally Twice a day 3ActiveFlomax 0.4 MG1 capsule Orally Once a dayActiveAmbien 10 MG1 tablet at bedtime as needed Orally Once a day5Active Social History Tobacco Use: Social History Observation Description Date Details (start date - stop date) Never Smoker NA - NA Tobacco Use/Smoking Question Answer Notes Patient is a nonsmoker Alcohol Screen (Audit-C) Question Answer Notes Did you have a drink containing alcohol in the p ast year? No Mgihwi5YdpbudynbhcsemJbwwsjneYNGLE-W (Standard) Question Answer Notes Did you have a drink containing alcohol in the p ast year? No Xgxmjm2FgpsuzcpuafsdgOrswnkye Problems Problem Type SNOMED Code ICD Code Onset Dates Problem Status W/U Status Risk Notes Problem Information temporarily unavailable Calcu elba of kidney (N20.0) ActiveconfirmedProblemInformation temporarily unavailablePalpitations (R00.2) ActiveconfirmedProblemInformation temporarily unavailableInsomnia (G47.00)Active confirmedProblemInformation temporarily unavailableIBS (irritable bowel syndrome) (K58.9)ActiveconfirmedProblemInformation temporarily unavailable Colitis (K52.9)ActiveconfirmedProblemInformation temporarily unavailableWell adult (Z00.00)ActiveconfirmedProblemInformation temporarily unavailable Folliculitis (L73.9)ActiveconfirmedProblemInformation temporarily unavailable Costochondritis (M94.0)ActiveconfirmedProblemInformation temporarily unavailable Over weight (E66.3)ActiveconfirmedProblemInformation temporarily unavailablePure hypercholesterolemia (E78.00)Activeconfirmed Vital Signs Blood pressure diastolic 70 mm Hg 02/28/2024 Uzhjso04 in02/28/2024lood pressure imlydwbu372 mm Hg02/28/20243475Ilmrzr800 lbs 02/28/2024BMI30.96 kg/m202/28/2024 Encounters Encounter Location Date Provider Diagnosis [facility] [address] [place] [address] 02/12/2024 Humberto Paul Well adult Z00.0 0 [facility] [address] [place] [address] 02/28/2024 Humberto [facility] [place] [address] 04/25/2024Doug [facility] adult Z00.00[facility] [place] [address]/28/2025Doug [facility] adult Z00.00 ; Sinus bradycardia R00.1 ; Over weight E66.3 ; Palpitations R00.2 and Insomnia G47.00 [facility] [place] [address] 01/02/2025Doug HoyFatigue R53.83[facility] [place] [address]/18/2024oug [facility] adult Z00.00 Assessments Encounter Date Diagnosis (ICD Code) Assessment Notes Treatment Notes Treatment Clinical Notes Section Notes 02/28/2024 Well adult (ICD-10 - Z00.00) 02/12/2024Well adult (ICD-10 - Z00.00)04/25/2024Well adult (ICD-10 - Z00.00) 11/07/2024Well adult (ICD-10 - Z00.00)11/07/2024Sinus bradycardia (ICD-10 - R00.1)01/02/2025Fatigue (ICD-10 - R53.83)11/07/2024Over weight (ICD-10 - E66.3) 11/07/2024Palpitations (ICD-10 - R00.2)11/07/2024Insomnia (ICD-10 - G47.00) Plan Of Treatment Pending Test Test Name Order Date CMP (COMPLETE METABOLIC PANEL) 3 CMP (COMPLETE METABOLIC PANEL) 4 HEMOGLOBIN A1C (GLYCO) 02/10/2023 HEMOGLOBIN A1C (GLYCO) 02/28/2024 INSULIN, TOTAL 02/28/2024 INSULIN, TOTAL 02/10/2023 LIPID PANEL (CHOL/TRIG/HDL/LDL) 02/28/20 24 LIPID PANEL (CHOL/TRIG/HDL/LDL) 02/11/20 23 CBC WITH DIFF 02/10/2023 CBC WITH DIFF 02/28/2024 PSA, PROSTATE-SPECIFIC ANTIGEN 3 URIC ACID 02/10/2023 URIC ACID 02/28/2024 COMPREHENSIVE METABOLIC PROFILE WITH GFR 11/07/2024 OCCULT BLOOD, FECAL, IMMUNOASSAY 025 CBC W/AUTO DIFF 11/07/2024 PSA, TOTAL 02/28/2024 GLYCOHEMOGLOBIN A1C 11/07/2024 INSULIN 11/07/2024 TESTOSTERONE, TOTAL 01/02/2025 THYROID PANEL (T4/TSH/FREE T3) 5 THYROID PANEL (T4/TSH/FREE T3) 4 THYROID PANEL (T4/TSH/FREE T3) 3 PSA, SCREENING 11/07/2024 Vitamin D 11/07/2024 Lipid Panel 11/07/2024 Next Appt Details Provider Name:Humberto Paul, 04:00:00 PM, [address] [place], [address], Insurance Providers Payer Name Payer Address Payer Phone Subscriber Number Group Number Insured Name Patient Relationship to Insured Coverage Start Date Coverage End Date [employer] [address] [address] [place] [address] [id number] Markel Armendariz Self - patient is the insured 3 Medical (General) History Medical History History ICD Code Calculus of kidney N20.0 Over weight E66.3 Colitis K52.9 Folliculitis L73.9 Costochondritis M94.0 Insomnia G47.00 Palpitations R00.2 IBS (irritable bowel syndrome) K58.9 Pure hypercholesterolemia E78.00 Surgical History Surgery Date(Month/Year) breast mass removed distal bicep tendon repairkidney irmxmb2678
--- OUTSIDE RECORDS SUMMARY | 2025-01-03 09:31 | XMS_ITS | Clinical Summary ---
Author Organization [facility] Address [address] [place] [address] Care Team Providers Care Commercial Green Building Designer Name Role Phone Preston Paul MD Primary Care Provider [phone] Allergies Active AllergyReactionsCriticalityNoted DateCommentsPollen ExtractUnknown 01/23/2023 Medications MedicationSigDispense QuantityRefillsLast FilledStart DateEnd DateStatus tamsulosin (Flomax) 0.4 MG 24 hr capsule TAKE 1 CAPSULE EVERY NIGHT AT BEDTIME DAILYActive zolpidem (Ambien) 10 MG tablet TAKE 1 TABLET BY MOUTH EVERY NIGHT NEEDED FOR INSOMNIAActive Repatha SureClick 140 MG/ML injection ADMINISTER 1 ML UNDER THE SKIN EVERY 2 WEEKS11/16/2022ctive Immunizations ImmunizationAdministration DatesNext DueInfluenza, H6U8-374783/25/2017Influenza, Fxafscdcsaa09/25/2017Influenza, injectable, quadrivalent, preservative free 11/16/2022,11/25/2019Influenza, injectable, quadrivalent, preservative free, wemnbclts52/11/2022Influenza, seasonal, /07/2021,01/30/2014 Influenza, seasonal, injectable, preservative free03/11/20157760BWCV-LRI-3 (COVID- 19) vaccine, mRNA, spike protein, LNP, PF, 50 mcg/0.5 mL12/02/2022Tdap11/21/2021 Zoster, Zazbmhgoqnt81/02/2020,03/14/2019 Family History Medical HistoryRelationNameCommentsDiabetesFatherLaverdeHearing lossFather LaverdeHypertensionFatherLaverdeStrokeFatherLaverdeCancerMotherJudyDiabetes MotherJudyHeart diseaseMotherJudyVision lossMotherJudyRelationNameStatusComments FatherLaverdeAliveMotherJudyDeceased Social History Tobacco UseTypesPacks/DayYears UsedDateSmoking Tobacco: NeverAlcohol UseStandard Drinks/WeekCommentsYes2 (1 standard drink = 0.6 oz pure alcohol)monthlyAUDIT-C AnswerDate RecordedQ1: How often do you have a drink containing alcohol?Monthly or less01/20/2023Q2: How many drinks containing alcohol do you have on a typical day when you are drinking?1 or Frequency of Binge DrinkingNot on file 01/20/2023Sex and Gender InformationValueDate RecordedSex Assigned at BirthMale 01/16/2023 10:02 AM ESTLegal QyxSggt3105/25/2022 6:44 PM EDTGender IdentityMale 01/16/2023 10:02 AM ESTSexual GitluesnxbtFvtcnlre65/06/2023 10:02 AM EST Last Filed Vital Signs Vital SignReadingTime TakenCommentsBlood Amzcuznk901/7107 12:00 PM EDT Pulse--Temperature--Respiratory Rate--Oxygen Saturation--Inhaled Oxygen Concentration--Dopskm656 kg (230 lb)06/25/2024 3:07 PM JPXByyjgk547.3 cm (5' 11 )06/25/2024 3:07 PM EDTBody Mass Index32.0806/25/2024 3:07 PM EDT Plan of Treatment Health MaintenanceDue DateLast DoneCommentsCT Tkvjkyoomtqj20/14/1967Colonoscopy 1965Colorectal Cancer Flmmrvudl43/14/1967FIT-DNA1966FIT1966 FOBT1965 3373Hupfoedguhlev49/14/1967Influenza Vaccine (#1)511/10/2023, 11/16/2022, 11/21/2021, Additional history exists Insurance * Guarantor: Cj Toureount TypeRelation to PatientDate of BirthPhone Billing AddressPersonal/IrvctjUjxn37/14[birth year][address] [address] Care Teams Team MemberRelationshipSpecialtyStart Date Preston Paul MD PCP - GeneralFamily Tgryjkax55/13/23
--- OUTSIDE RECORDS SUMMARY | 2025-01-03 09:31 | XMS_ITS | Clinical Summary ---
Author Organization [facility] Address [address] [place] [address] Care Team Providers Care Bait Painter Name Role Phone Unavailable Primary Care Provider Unavailabl e Encounters DateTypeDepartmentCare IamsDwdekthjspp33/05/2025Lab Requisition [facility] [address] [place] [address] Swapnil Muir MD from Last 3 Months Social History Tobacco UseTypesPacks/DayYears UsedDateSmoking Tobacco: Never AssessedSex and Gender InformationValueDate RecordedSex Assigned at BirthNot on fileLegal Sex Male10/15/2024 12:57 AM EDTGender IdentityNot on fileSexual OrientationNot on file Plan of Treatment Not on file Procedures Procedure NamePriorityDate/TimeAssociated DiagnosisCommentsOXALATE 24 HR URINE Lhuvuzi5110/11/2024 6:20 AM EDT from Last 3 Months Results * (ABNORMAL) OXALATE 24 HR URINE (10/11/2024 6:20 AM EDT)ComponentValueRef Range Test MethodAnalysis TimePerformed AtPathologist SignatureOxalate, Urine 24 Hour47(H)7 - 44 mg/44dtv8810/16/2024 4:51 PM [facility] Comment:This test was developed, and its performance characteristics determined by the [facility] Department of Pathology and Laboratory Medicine. It has not been cleared or approved by the FDA. The [facility] Department of Pathology and Laboratory Medicine is regulated under CLIA as qualified to perform high-complexity testing. This test is used for clinical purposes. It should not be regarded as investigational or for research.Period 24hr10/16/2024 4:51 PM [facility] LABVolume3,100mL 10/16/2024 4:51 PM [facility] LABSpecimen (Source) Anatomical Location / LateralityCollection Method / VolumeCollection Time Received TimeUrineURINE SPECIMEN / Zmhmljg2510/11/2024 6:20 AM EDT10/15/2024 1:01 AM EDT Narrative Authorizing ProviderResult TypeResult StatusPatricmanuela Muir MDLABORATORYFinal ResultPerforming OrganizationAddressCity/State/ZIP CodePhone Number [facility] [address] [address], from Last 3 Months
--- OUTSIDE RECORDS SUMMARY | 2025-01-03 09:31 | XMS_ITS | Clinical Summary ---
Author Organization [facility] tem Address [facility] [address] [place] [address] Care Team Providers Care Camp Housekeeper Name Role Phone Preston Paul MD Primary Care Provider [phone] Allergies No known active allergies Medications MedicationSigDispense QuantityRefillsLast FilledStart DateEnd DateStatus diclofenac (VOLTAREN) 25 mg EC tablet Take 25 mg by mouth 2 (two) times a day.Active evolocumab (REPATHA SYRINGE) 140 mg/mL syringe Inject 140 mg under the skin every 14 (fourteen) days.Active zolpidem (AMBIEN) 10 mg tablet Take 10 mg by mouth nightly as needed for sleep.Active Family History Medical HistoryRelationNameCommentsCoronary artery diseaseFatherStrokeFather CancerMotherlungHeart diseaseMotherHeart failureMotherRelationNameStatusComments FatherAliveMotherDeceased Social History Tobacco UseTypesPacks/DayYears UsedDateSmoking Tobacco: NeverSmokeless Tobacco: NeverAlcohol UseStandard Drinks/WeekCommentsYes0 (1 standard drink = 0.6 oz pure alcohol)rareChildcareAnswerDate XmjoijnsJvikxwpvmDjwoqmr25/12/2019Employment AnswerDate HrkomciiUjshwalutkModdecy67/12/2019Purpose - LifeAnswerDate Recorded Purpose and direction in jzwoFnbctmy75/11/2021Sex and Gender InformationValue Date RecordedSex Assigned at BirthNot on fileLegal JhdMans1310/16/2014 11:43 AM EDTGender IdentityNot on fileSexual OrientationNot on file Last Filed Vital Signs Vital SignReadingTime TakenCommentsBlood Dnifbblh434/8607 5:00 PM EDT Xoksk8986 4:05 PM YWPLfamlmqqhto89 ??C (96.8 ??F)10/10/2018 3:30 PM EDT Respiratory Bczi1423 4:00 PM EDTOxygen Kkilrgitds20%10/10/2018 5:00 PM EDTInhaled Oxygen Concentration--Dowelv111 kg (236 lb)10/10/2018 12:06 PM EDT Uvwecz891.3 cm (5' 11 )10/10/2018 12:06 PM EDTBody Mass Index32.9210/10/2018 12:06 PM EDT Plan of Treatment Health MaintenanceDue DateLast DoneCommentsDepression Eivikfoll44/14/1979Tobacco Dduhdpguo03/14/1979Adult BMI Kaanltrak62/14/1985DTaP,Tdap and Td Vaccines (1 - Tdap)1985Zoster (Shingles) Vaccine (1 of 2)2016Influenza Vaccine 11/11/2024 Medical Devices ImplantedTypeAreaManufacturerDevice IdentifierShelf Expiration DateModel / Serial / LotImpl Dlv Sys Distal Biceps Bc - Sn/A - [id number] Implanted:Qty: 1 on 10/10/2018 [facility]: TxkLlmsdzs17/31/2020AR-[id number] / N/A / [id number] Insurance Care Teams Team MemberRelationshipSpecialtyStart DateEnd Date Preston Paul MD PCP - GeneralFami Medicine10/09/18
--- OUTSIDE RECORDS SUMMARY | 2025-01-03 09:34 | XMS_ITS | CCD ---
Author Organization [facility] Care Team Providers Care [employer] Installer Name Role Phone Isaiah Paul Primary Care Physician [phone] MICHELLE, DR COLON Admitting Unavailable MICHELLE, DR COLON Attending Unavailable ANNY, DR COLON Primary Care Unavailable ANNY, DR COLON Consulting Unavailable MICHELLE, DR COLON Admitting Unavailable HORm, DR COLON Attending Unavailable ANNY, DR COLON Primary Care Unavailable HOY, DR COLON Consulting Unavailable MUIR, DR ADEN Admitting Unavailable MUIR, DR ADEN Attending Unavailable HOY, DR COLON Primary Care Unavailable MUIR, DR ADEN Consulting Unavailable ZIEBER, DR ALEXANDRA Tapia Consulting Unavailable MD Cuong Reddy Attending Provider MD Isaiah Paul Primary Care Provider [phone] Isaiah Paul Primary Care Unavailable Cuong Reddy Attending UnavailCuong Hunt Admitting Isaiah Maya MD Primary Care Provider [phone] MODESTO GRISSOM Attending Unavailable MODESTO GRISSOM Referring Unavailable Swapnil MUIR Attending Unavailable Swapnil MUIR Attending Unavailable Swapnil MUIR Attending Unavailable Allergies Allergy ClassificationReported Allergen(s)Allergy TypeDate of OnsetReaction(s) Facility (5 sources)Pollen; Translations: [Pollen]Allergy to substanceUnknown (qualifier value)[facility] (4 sources)PollenAllergy to gelhwiuml19-08-3016RbnavigEJWM Healthcare (1 source)No Known Medication Allergies; Translations: [No Known Medication Allergies]Propensity to adverse reactions (disorder)[facility] RepositoryNEGATED: Highlighted row has been ruled out! (1 source)Drug allergyExec[facility] NEGATED: Highlighted row has been ruled out! (1 source)Drug allergyExec[facility] NEGATED: Highlighted row has been ruled out! (1 source)Drug allergyExec[facility] NEGATED: Highlighted row has been ruled out! (1 source)Drug allergyExec[facility] Medications Current Medications MedicationDrug Class(es)DatesSig (Normalized)Sig (Original)Aged Garlic (1 source)Start: 97-48-4410ajzn 600 mg by mouth once dailyAged Garlic Active 600 MG PO Daily May 09, 2022 12:83kqN0-Ngcod-H04-Gmsmuj-Zscyctjvot (Neuriva Plus) 0.85 mg-200 mcg-1.2 mcg Tablet,Chewable (1 source)Start: 33-27-2225rqnk 1 tablet by mouth once daily B7-Eawyx-B01Q10-Yvzyfi-Rmifbgoojt (Neuriva Plus) 0.85 mg-200 mcg-1.2 mcg Tablet,Chewable Active 1 TAB PO Daily May 09, 2022 12:00amBerberine- Herbal Comb No.18 (1 source)Start: 56-48-2092aily 1 capsule by mouth three times dailyBerberine- Herbal Comb No.18 Active 1 CAP PO Three times daily May 09, 2022 12:00am betamethasone 3 mg/ml / betamethasone acetate 3 mg/ml injectable suspension (4 sources)CorticosteroidStart: 06-25-2024 End: 55-60-6780hvhtzoycaaokq acetate-betamethasone sodium phosphate (Celestone) injection 3 mgStart: 06-25-2024 End: 01-10-1454mdessvcgvmiwx acetate-betamethasone sodium phosphate (Celestone) injection 3 mgStart: 06-25-2024 End: 34-15-8199burwpf 3 mg by intramuscular injection once3 mg, Intramuscular, Once, On Mon06/25/24 at 1530, For 1 doseStart: 06-25-2024 End: 81-70-6894dxksmt 3 mg by intramuscular injection once3 mg, Intramuscular, Once, On Mon06/25/24 at 1530, For 1 dose1 ml evolocumab 140 mg/ml auto-injector (9 sources)PCSK9 InhibitorStart: 29-76-3695ofdxrp 1 mL by subcutaneous injection every other weekRepatha SureClick 140 MG/ML injection ADMINISTER 1 ML UNDER THE SKIN EVERY 2 WEEKS 11/16/2022 ActiveStart: 43-13-4603ggqbpc 140 mg by subcutaneous injection every weekEvolocumab (Repatha Sureclick) 140 mg/mL pen injector Active 140 MG SUBCUT every week May 09, 2022 12:00amStart: 74-84-5111Agyhvfn 140 mg/mL subcutaneous solution 140 mg, SubCutaneous Start Date: 10/01/18 Status: Ordered Repeat number: 7Ljgxbajahdhu-Pysalpyk-Oaxdci (1 source)Start: 77-89-7921gkmg 1 tablet by mouth once daily Wbhkrwuujnvd-Mdylruim-Zggomz Active 1 TAB PO Daily May 09, 2022 12:00am tamsulosin hydrochloride 0.4 mg oral capsule (9 sources)alpha-Adrenergic BlockerStart: 57-71-5668aatb 1 capsule by mouth once daily at bedtimeFlomax 0.4 mg Cap 0.4 mg = 1 cap(s), Oral, Daily, Take one tab qhs daily, # 90 cap(s), Refills(s) 3, Pharmacy: [id number], 180, cm, 07/14/23 8:46:00 EDT, Height/Length Dosing, 102.3,kg, 07/14/23 8:46:00 EDT, Weight Dosing Start Date: 08/09/24 Status: Ordered Quantity: 90.0 Unit: cap (s) Repeat number: 4Start: 45-74-6287cfev 1 capsule by mouth once daily at bedtimeFlomax 0.4 mg Cap 0.4 mg = 1 cap(s), Oral, Daily, Take one tab qhs daily, # 90 cap(s), Refills(s) 3, Pharmacy: [facility] #[id number], 180, cm, 11/08/21 9:20:00 EDT, Height/Length Dosing, 105, kg, 11/08/21 9:20:00 EDT, Weight Dosing Start Date: 11/08/21 Status: Orderedthioctic acid 300 mg oral capsule (1 source)Start: 68-02-6512rpdr 300 mg by mouth twice dailyAlpha Lipoic Acid Active 300 MG PO Twice daily May 09, 2022 12:00am1 ml triamcinolone acetonide 40 mg/ml prefilled syringe (4 sources)CorticosteroidStart: 06-25-2024 End: 81-51-2773ptssatbnxyzbd acetonide (Kenalog-40) injection 20 mgStart: 06-25-2024 End: 53-10-9976cdcrrxmjygtjh acetonide (Kenalog-40) injection 20 mgStart: 06-25-2024 End: 65-54-3721reklzf 20 mg by intramuscular injection once20 mg, Intramuscular, Once, On Mon06/25/24 at 1530, For 1 doseStart: 06-25-2024 End: 79-70-3712jrzdap 20 mg by intramuscular injection once20 mg, Intramuscular, Once, On Mon06/25/24 at 1530, For 1 doseTumeric (1 source)Start: 27-20-9670dhnh 1.44 g by mouth twice dailyTumeric Active 1.44 GM PO Twice daily May 09, 2022 12:00amubidecarenone 200 mg oral capsule (1 source)Start: 01-90-4196Hxebktqi Q10 (Co Q-10) 200 mg Capsule Active 200 MG PO Daily May 09, 2022 12:00amUltimet 16 Strai Probiotic (1 source)Start: 70-07-9148Cotxmwl 16 Strai Probiotic Active 3.2 billion cells PO Daily May 09, 2022 12:00amVit W-Y-H4-Xv-Y66-XtekyZ83-Qppyw-Toeqvm (1 source)Start: 07-82-4800szon 1 tablet by mouth once dailyVit K-R-H2-Ni-B54-ZuhkeA20-Wjrcc-Qiyyub Active 1 TAB PO Daily May 09, 2022 12:00am zolpidem tartrate 10 mg oral tablet (9 sources)gamma-Aminobutyric Acid-ergic AgonistStart: 87-90-6171rbdh 10 mg by mouth at bedtimeZolpidem Active 10 MG PO Bedtime May 09, 2022 12:00am Start: 03-35-0848txtciwaw Once a day (at bedtime), Refills(s) 0 Start Date: 09/28/20 Status: Ordered Repeat number: 1Start: 79-60-5230uojfjbpx Once a day (at bedtime), Refills(s) 0 Start Date: 09/28/20 Status: Ordered Problems Problem ClassificationProblemDateDocumented DateEpisodic/ChronicCalculus of urinary tract (18 sources)History of calculus of kidney; Translations: [Personal history of urinary calculi]Onset: 97-71-2719PqgjvjqkLplpovqzk of lipid metabolism (4 sources)Ruzzqciuyydjud14-73-3790FkopdvuCfamwarogqjmx symptoms and ill-defined conditions (4 sources)Post-micturition xxqdogvyzwni99-91-0317PfigrrjYcwnuinnyigrx symptoms and ill-defined conditions (16 sources)Delay when starting to pass urine; Translations: [Microscopic hematuria]35-80-9307ZojtfjwaNmwikiakcex of prostate (9 sources)Benign prostatic hypertrophy with outflow obstruction; Translations: [Benign prostatic hyperplasia with lower urinary tract symptoms]Onset: 11-69-4706EovzmajUhxms acquired deformities (2 sources)Equinus contracture of the ankle; Translations: [Contracture, left ankle]88-71-5811XhttiriGjsgv connective tissue disease (3 sources)Plantar fasciitis; Translations: [Plantar fascial fibromatosis] 94-78-1517JmapfonlBnayy connective tissue disease (2 sources)Pain in left foot; Translations: [Pain in left foot]06-25-2024 EpisodicOther male genital disorders (4 sources)Wrwpqcuhk66-22-8923OruhbdyFwmxn screening for suspected conditions (not mental disorders or infectious disease) (7 sources)Encounter for screening for malignant neoplasm of prostate; Translations: [Elevated prostate specific antigen [PSA]]Onset: 11-03-2021 EpisodicResidual codes; unclassified (4 sources)Family history of cancer; Translations: [Family history of malignant neoplasm of prostate]Onset: 00-98-8097FyiwafiwYxkqnnwn codes; unclassified (4 sources)Family history of prostate baztqb96-61-0699NrpsixxoPjjzdiavbuyt (1 source)Encounter for screening for malignant neoplasm of colon; Translations: [Encounter for screening formalignant neoplasm of colon]Onset: 05-09-2022 Results Test NameValueInterpretationReference RangeFacilityUrology Office/Clinic Noteon 83-76-6442Lrgvuee Office/Clinic NoteUrology Office/Clinic Note Chief Complaint follow up with metabolic work mup HPI Staff Pt is a 59 year old male here for a 1 year follow up with KUB, metabolic workup and PSA. KUB done 10/09/24 [facility] DX: BPH, Ureteral Stone, Hx of Kidney Stones & Fam Hx of Prostate Cancer Current PSA: 10/09/24- 0.82 Pt denies pain/bunring denies visible blood denies flank pt complains of post void dribbling IPSS: 4 History of Present Illness Tests reviewed: reviewed UA, KUB, PSA, metabolic workup I have reviewed the previous health record information and history for this patient from Dr. Muir. I have reviewed and verified the staff HPI to be accurate for this encounter. Review of Systems PHQ Score Initial Depression Screen Score: 0 SCORE ROS - Provider Constitutional: denies weight loss, [...] HPI. Physical Exam Vitals & Measurements HR: 78(Peripheral) RR: 18 BP: 126/78 HT: 180 cm HT: 71 in WT: 107.8 kg WT: 237.658 lb BMI: 33.27 General Appearance: alert, no distress, well nourished, well developed male. Assessment/Plan 1. History of kidney stones (Z87.442: Personal history of urinary calculi) S/p Lithotripsy using laser 04/21/05 S/p ESWL 01/08/15 KUB 11/03/21 - no appreciable urinary tract calculi. KUB 11/09/22 - 5mm right pelvic calcification likely representing progression of a ureteral stone previously observed over the right L4 transverse process. IVP 11/18/23 - a right 6.2 mm calcification distal right ureter. S/p cysto, R holmium laser, R stent placement 12/08/22. S/p cysto w/ R stent removal 12/20/22. KUB 07/11/23 [facility] - neg for obvious stones. KUB 10/09/24 [facility] - No stones noted. Metabolic workup 10/11/24 - Volume 3100 cc. No abnormalities. Reviewed lab and imaging results. Shares he has decreased his pop intake. Avoiding teas. No indication for changes in current regimen. Recommended pt to repeat 24 hr urine to reevaluate for factors to help prevent kidney stones. -Dietary modifications -Cont increased fluid intake -F/u in 1 yr w/ repeat 24 hr urine 2. BPH with urinary obstruction (N40.1: Benign prostatic hyperplasia with lower urinary tract symptoms) PSA 09/24/20 - 1.48 11/03/21 - 0.80 12/17/21 - 0.81 11/09/22 - 0.84 10/09/24 - 0.82 UA neg. IPSS 4. Taking Flomax 0.4mg qd. No bother with urination. Stream has improved since being on Flomax. -Cont Flomax wo changes. Pt to call for refills. 3. Family history of prostate cancer (Z80.42: Family history of malignant neoplasm of prostate) Grandfather. [1] Follow-up With When Contact Information CLINT TIM, Swapnil Tapia, URL [facility] [address], [place] [address] [phone] Additional Instructions: 1 yr w/ 24hr urine Patient Education 24-Hour Urine Collection Jennifer Casanova, personally scribed for Dr. Muir on 10/14/2024 15:59:35. . Documentation recorded by the scribJennifer sierra, accurately reflects the services(s) I performed and decisions made by me. Authenticated by Dr. Muir on 10/14/2024 16:01:29. Problem List/Past Medical History Ongoing BPH with urinary obstruction Calciuria Family history of prostate cancer History of kidney stones History of renal stone Hyperlipidemia Impotence Microscopic hematuria Nocturia Plantar fasciitis Post-void dribbling Ureteral stone Urinary hesitancy Historical No qualifying data Procedure/Surgical History Cystoscopic removal of ureteric stent (12/20/2022), Cystoscopic laser lithotripsy of ureteric calculus (12/08/2022), ESWL - Extracorporeal shockwave lithotripsy for renal calculus (01/08/2015), Lithotripsy using laser (04/21/2005), Cystoscopy (11/03/2004), Hernia repair, Thumb surgery. Medications Flomax 0.4 mg Cap, 0.4 mg= 1 cap(s), Oral, Daily, 3 refills Repatha 140 mg/mL subcutaneous solution, 140 mg, SubCutaneous zolpidem, Once a day (at bedtime) Allergies No Known Medication Allergies Pollen (Unknown) Social History Alcohol - Low Risk, 10/01/2018 Current. Wine. 1-2 times per month., 10/09/2024 Substance Abuse - Denies Substance Abuse, 10/01/2018 Never., 10/09/2024 Tobacco - Denies Tobacco Use, 10/01/2018 Never (less than 100 in lifetime) Tobacco Use:. Never Smokeless Tobacco Use:., 10/14/2024 Family History Arthritis: Father. COPD: Mother. Congenital heart disease: Negative: Mother, Father, Sister and Brother. Heart disease: Mother and Father. Hyperlipidemia: Father. Peripheral vascular disease: Father. Primary malignant neoplas (more content not included)...[facility] HospitalComment on above:Result Comment: Electronically Signed By: Swapnil MUIR MD\.br\Date and Time Signed: 10/14/24 16:01 EDT\.br\Electronically Co-Signed By: Jennifer Gaspar\.br\Date and Time Co-Signed: 10/14/24 15:59 EDTXR Calcaneus - left 2 Viewson 81-73-6799Jhaexul Result: Lateral, calcaneal axial views are weight-bearing. Increased calcaneal inclination. Appears to be maintenance of the medial longitudinal arch. Approximately 1-2 degrees of rearfoot varus. No fractures or dislocations.[facility] HealthcareRadiology Study observation (narrative)[facility] HealthcareINSULINon 80-59-1740Riftgjc1.5 uIU/mLNormal2.6-24.9[facility] HospitalComment on above:Performed By: #### INSULIN #### [facility] [address] [place] [address] Dr. Gabby Lazar AUTO DIFFon 71-58-1092QGGO #0.1 103/ulNormal0.0-0.1The [facility] HospitalComment on above:Performed By: #### CBC #### [facility] [address] [address] [address] Gabby ParkBasophils/100 WBC (Bld)1.0 %Normal0.2-2.0[facility] Comment on above:Performed By: #### CBC #### [facility] [address] [address] [address] Gabby Holland #0.1 103/ulNormal0.0-0.7The [facility] HospitalComment on above: Performed By: #### CBC #### [facility] [address] [place] [address] Dr. Gabby Tolentinoosinophils/100 WBC (Bld)2.2 %Normal0.9-7.0[facility] Comment on above:Performed By: #### CBC #### [facility] [address] [place] [address] Dr. Gabby Tolentinorythrocyte distribution width (RBC) [Ratio]12.4 %Tdfgax03.0-15.0 The [facility] HospitalComment on above:Performed By: #### CBC #### [facility] [address] [place] [address] Dr. Gabby ParkHematocrit (Bld) [Volume fraction]44.7 %Gycelx13.0-54.0The [facility] HospitalComment on above:Performed By: #### CBC #### [facility] [address] [address] [address] Gabby ParkHemoglobin (Bld) [Mass/Vol]15.4 g/dEKshsfl58.0-18.0The [facility] HospitalComment on above:Performed By: #### CBC #### [facility] [address] [place] [address] Dr. Gabby Hernandez #0.01 10e3/ulNormal0.00-0.03The [facility] HospitalComment on above:Performed By: #### CBC #### [facility] [address] [address] [address] Gabby Hernandez %0.2 %Normal0.0-0.5The [facility] HospitalComment on above: Performed By: #### CBC #### [facility] [address] [address] [address] Gabby Leal #1.0 103/ulCritically low1.2-3.8[facility] Comment on above:Performed By: #### CBC #### [facility] [address] [address] [address] Gabby Dohertyhocytes/100 WBC (Bld)19.0 %Critically low20.5-60.0The [facility] HospitalComment on above:Performed By: #### CBC #### [facility] [address] [place] [address] Dr. Gabby BoyerUAL DIFF REQNONormalThe [facility] HospitalComment on above: Performed By: #### CBC #### [facility] [address] [address] [address] Gabby Sánchez (RBC) [Entitic mass]30.1 oxZswpsf32.9-34.0The [facility] HospitalComment on above:Performed By: #### CBC #### [facility] [address] [place] [address] Dr. Gabby Sánchez (RBC) [Mass/Vol]34.5 g/mCWsfmey47.9-35.2The [facility] HospitalComment on above:Performed By: #### CBC #### [facility] [address] [place] [address] Dr. Gabby Sánchez (RBC) [Entitic vol]87.5 iFKyvaaz80.0-94.0The [facility] HospitalComment on above:Performed By: #### CBC #### [facility] [address] [place] [address] Dr. Gabby Hernandez #0.4 103/ulNormal0.3-0.8The [facility] HospitalComment on above:Performed By: #### CBC #### [facility] [address] [address] [address] Gabby Stanleyocytes/100 WBC (Bld)8.2 %Normal1.7-12.0[facility] Comment on above:Performed By: #### CBC #### [facility] [address] [address] [address] Gabby CaldwellUT #3.5 103/ulNormal1.4-6.5The [facility] HospitalComment on above:Performed By: #### CBC #### [facility] [address] [place] [address] Dr. Gabby Caldwellutrophils/100 WBC (Bld)69.4 %Bzkepe57.0-75.0The [facility] HospitalComment on above:Performed By: #### CBC #### [facility] [address] [place] [address] Dr. Gabby ParkPlatelet mean volume (Bld) [Entitic vol]9.9 fLNormal9.5-13.5The [facility] HospitalComment on above:Performed By: #### CBC #### [facility] [address] [place] [address] Dr. Gabby ParkPLT233 103/tjKldxvp897-747Xgp [facility] HospitalComment on above: Performed By: #### CBC #### [facility] [address] [place] [address] Dr. Gabby ParkRBC5.11 106/ulNormal4.70-6.10The [facility] HospitalComment on above:Performed By: #### CBC #### [facility] [address] [place] [address] Dr. Gabby ParkWBC5.1 103/ulNormal4.0-11.0[facility] on above: Performed By: #### CBC #### [facility] [address] [place] [address] Dr. Gabby ParkGLYCOHEMOGLOBIN A1Con 42-53-8480JSW RECOMMENDATIONSEE BELOWNormne The [facility] HospitalComment on above:Result Comment: ADA RECOMMENDED LIMIT 4.0 - 6.0 ADA THERAPEUTIC TARGET < 7.0 ACTION SUGGESTED > 7.0Performed By: #### A1C #### [facility] [address] [place] [address] Dr. Gabby ParkGlucose [Mass/Vol]105 mg/dLKettering HealthComment on above:Performed By: #### A1C #### [facility] [address] [place] [address] Dr. Gabby ParkHbA1c (Bld) [Mass fraction]5.3 %Normal4.5-6.2The [facility] HospitalComment on above:Performed By: #### A1C #### [facility] [address] [place] [address] Dr. Gabby CarvalhoID PROFILEon 83-25-7887KTJU-HDL RATIO NORMSEE [facility] HospitalComment on above:Result Comment: 3.3 - 4.4 LOW RISK 4.4 - 7.1 AVERAGE RISK 7.1 - 11.0 MODERATE RISK >11.0 HIGH RISKPerformed By: #### CMP, LIPID #### [facility] [address] [place] [address] Dr. Gabby Hugginsesterol [Mass/Vol]142 mg/dLNormal<=200The [facility] Comment on above:Performed By: #### CMP, LIPID #### [facility] [address] [place] [address] Dr. Gabby ParkCholesterol in HDL [Mass/Vol]41 mg/mTOowhzw42-95Coe [facility] HospitalComment on above:Performed By: #### CMP, LIPID #### [facility] [address] [place] [address] Dr. Gabby ParkCholesterol in LDL [Mass/Vol]88.2 mg/dLKettering HealthCommymichigan medical center on above:Performed By: #### CMP, LIPID #### [facility] [address] [place] [address] Dr. Gabby Hugginsesterol.total/Cholesterol in HDL [Mass ratio]3.5 {ratio} NormalThe Mercy Hospitalment on above:Performed By: #### CMP, LIPID #### [facility] [address] [address] [address] Gabby Maynard NORMAL> or = 60 mg/dl - LOW CARDIOVASCULAR RISK <40 mg/dl - HIGH CARDIOVASCULAR RISKKettering HealthComment on above:Performed By: #### CMP, LIPID #### [facility] [address] [address] [address] Gabby ParkLDL CALC NORMALSEE BELOWNoBluffton HospitalComment on above:Result Comment: <100 mg/dl OPTIMAL 100 - 129 mg/dl NEAR OR ABOVE OPTIMAL 130 - 159 mg/dl BORDERLINE HIGH 160 - 189 mg/dl HIGH >190 mg/dl VERY HIGH Performed By: #### CMP, LIPID #### [facility] [address] [place] [address] Dr. Gabby ParkTriglyceride [Mass/Vol]64 mg/dLNormal<=150The [facility] Comment on above:Performed By: #### CMP, LIPID #### [facility] [address] [place] [address] Dr. Gabby SeguraLDL CALC12.8 mg/dLNoBluffton HospitalCommymichigan medical center on above: Performed By: #### CMP, LIPID #### [facility] [address] [place] [address] Dr. Gabby ParkPROF 14(COMP METB)on 10-11-5535Shbfbmo [Mass/Vol]4.3 g/dLNormal 3.4-5.0The [facility] on above:Performed By: #### CMP, LIPID #### [facility] [address] [place] [address] Dr. Gabby ParkAlbumin/Globulin [Mass ratio]1.3 {ratio}NormalThe [facility] HospitalCommymichigan medical center on above:Performed By: #### CMP, LIPID #### [facility] [address] [place] [address] Dr. Gabby MckeonP [Catalytic activity/Vol]53 U/SXuvxpt00-948Egg [facility] on above:Performed By: #### CMP, LIPID #### [facility] [address] [address] [address] Gabby Ely [Catalytic activity/Vol]44 U/ZFknzwb80-67Ezg [facility] HospitalComment on above:Performed By: #### CMP, LIPID #### [facility] [address] [address] [address] Gabby Mckeonon gap [Moles/Vol]11.0 mmol/LNormalThe [facility] Comment on above:Performed By: #### CMP, LIPID #### [facility] [address] [address] [address] Gabby ParkAST [Catalytic activity/Vol]18 U/RSlswfa93-54Ktt [facility] HospitalComment on above:Performed By: #### CMP, LIPID #### [facility] [address] [address] [address] Gabby ParkBilirubin [Mass/Vol]0.7 mg/dLNormal0.2-1.0[facility] Comment on above:Performed By: #### CMP, LIPID #### [facility] [address] [address] [address] Gabby ParkCalcium [Mass/Vol]9.1 mg/dLNormal8.5-10.1[facility] Comment on above:Performed By: #### CMP, LIPID #### [facility] [address] [address] [address] Gabby ParkChloride [Moles/Vol]102 mmol/XKstewo93-043Ybb [facility] Comment on above:Performed By: #### CMP, LIPID #### [facility] [address] [address] [address] Gabby ParkCO2 [Moles/Vol]28.0 mmol/DOvewkf74.0-32.0The [facility] Comment on above:Performed By: #### CMP, LIPID #### [facility] [address] [address] [address] Gabby ParkCreatinine [Mass/Vol]1.02 mg/dLNormal0.70-1.30The [facility] HospitalComment on above:Performed By: #### CMP, LIPID #### [facility] [address] [address] [address] Gabby TolentinoGFR-AF INDIAN>60Normal>=60The [facility] HospitalComment on above:Performed By: #### CMP, LIPID #### [facility] [address] [address] [address] Gabby TolentinoGFR-NON AF INDIAN>60Normal>=60The [facility] HospitalComment on above:Performed By: #### CMP, LIPID #### [facility] [address] [address] [address] Gabby ParkGlobulin (S) [Mass/Vol]3.4 g/dLNormalThe [facility] HospitalComment on above:Performed By: #### CMP, LIPID #### [facility] [address] [address] [address] Gabby ParkGlucose [Mass/Vol]97 mg/mUEkezto94-522Jsx [facility] Comment on above:Performed By: #### CMP, LIPID #### [facility] [address] [address] [address] Gabby ParkPotassium [Moles/Vol]4.0 mmol/LNormal3.5-5.1The [facility] Comment on above:Performed By: #### CMP, LIPID #### [facility] [address] [address] [address] Gabby ParkProtein [Mass/Vol]7.7 g/dLNormal6.4-8.2The [facility] Comment on above:Performed By: #### CMP, LIPID #### [facility] [address] [address] [address] Gabby ParkSodium [Moles/Vol]137 mmol/PTxnuno959-261Yvr [facility] Comment on above:Performed By: #### CMP, LIPID #### [facility] [address] [address] [address] Gabby ParkUrea nitrogen [Mass/Vol]18.0 mg/dLNormal7.0-18.0The [facility] HospitalComment on above:Performed By: #### CMP, LIPID #### [facility] [address] [address] [address] Gabby ParkUrea nitrogen/Creatinine [Mass ratio]17.6 mg/mgNoBluffton HospitalComment on above:Performed By: #### CMP, LIPID #### [facility] [address] [address] [address] Gabby ParkXR KUB 1 VIEWon 18-71-0719FP KUB 1 VIEWEXAMINATION: XR KUB 1 VIEW HISTORY: Kidney stone [...] Electronically authenticated by: ALEXANDRA RIBEIRO Date: 2021-11-04 11:12[facility] HealthCALCIUM IONIZEDon 12-18-9873Ksaunqq, Ionized, Serum5.2 mg/dL Normal4.5-5.6The [facility] HospitalComment on above:Performed By: #### CAIONZ #### [facility] [address] [place] [address] Dr. Gabby ParkINSULINon 03-61-2258Yyuicmq3.5 uIU/mLNormal2.6-24.9The [facility] HospitalComment on above:Performed By: #### A1C #### [facility] [address] [place] [address] Dr. Gabby ParkCBC AUTO DIFFon 45-85-0749BPOH #0.0 103/ulNormal0.0-0.1The [facility] HospitalComment on above:Performed By: #### A1C #### [facility] [address] [address] [address] Gabby ParkBasophils/100 WBC (Bld)0.7 %Normal0.2-2.0The [facility] Comment on above:Performed By: #### A1C #### [facility] [address] [address] [address] Gabby Holland #0.1 103/ulNormal0.0-0.7The [facility] HospitalComment on above: Performed By: #### A1C #### [facility] [address] [place] [address] Dr. Gabby Tolentinoosinophils/100 WBC (Bld)2.2 %Normal0.9-7.0The [facility] Comment on above:Performed By: #### A1C #### [facility] [address] [place] [address] Dr. Gabby Tolentinorythrocyte distribution width (RBC) [Ratio]12.2 %Hfuole31.0-15.0 The [facility] HospitalComment on above:Performed By: #### A1C #### [facility] [address] [place] [address] Dr. Gabby ParkHematocrit (Bld) [Volume fraction]46.7 %Qfmkqb11.0-54.0The [facility] HospitalComment on above:Performed By: #### A1C #### [facility] [address] [place] [address] Dr. Gabby ParkHemoglobin (Bld) [Mass/Vol]16.0 g/cCMexxep12.0-18.0The [facility] HospitalComment on above:Performed By: #### A1C #### [facility] [address] [place] [address] Dr. Gabby Hernandez #0.01 10e3/ulNormal0.00-0.03The [facility] HospitalComment on above:Performed By: #### A1C #### [facility] [address] [place] [address] Dr. Gabby Hernandez %0.2 %Normal0.0-0.5The [facility] HospitalComment on above: Performed By: #### A1C #### [facility] [address] [place] [address] Dr. Gabby Doherty #1.0 103/ulCritically low1.2-3.8The [facility] Comment on above:Performed By: #### A1C #### [facility] [address] [place] [address] Dr. Gabby Leemphocytes/100 WBC (Bld)24.9 %Mkafwo52.5-60.0[facility] HospitalComment on above:Performed By: #### A1C #### [facility] [address] [place] [address] Dr. Gabby Viramontes DIFF REQNONormalThe [facility] HospitalComment on above: Performed By: #### A1C #### [facility] [address] [place] [address] Dr. Gabby Sánchez (RBC) [Entitic mass]29.7 rxWvuseh53.9-34.0The [facility] HospitalComment on above:Performed By: #### A1C #### [facility] [address] [place] [address] Dr. Gabby Sánchez (RBC) [Mass/Vol]34.3 g/jJIlkqja02.9-35.2The [facility] HospitalComment on above:Performed By: #### A1C #### [facility] [address] [place] [address] Dr. Gabby De León (RBC) [Entitic vol]86.6 wULqsmyd81.0-94.0The [facility] HospitalComment on above:Performed By: #### A1C #### [facility] [address] [place] [address] Dr. Gabby Hernandez #0.4 103/ulNormal0.3-0.8The [facility] HospitalComment on above:Performed By: #### A1C #### [facility] [address] [place] [address] Dr. Gabby Stanleyocytes/100 WBC (Bld)8.6 %Normal1.7-12.0The [facility] Comment on above:Performed By: #### A1C #### [facility] [address] [place] [address] Dr. Gabby Galicia #2.6 103/ulNormal1.4-6.5The [facility] HospitalComment on above:Performed By: #### A1C #### [facility] [address] [place] [address] Dr. Gabby Caldwellutrophils/100 WBC (Bld)63.4 %Gwmfem97.0-75.0The [facility] HospitalComment on above:Performed By: #### A1C #### [facility] [address] [place] [address] Dr. Gabby ParkPlatelet mean volume (Bld) [Entitic vol]9.6 fLNormal9.5-13.5The [facility] HospitalComment on above:Performed By: #### A1C #### [facility] [address] [place] [address] Dr. Gabby ParkPLT215 103/tmMecfwo309-295Dyf [facility] HospitalComment on above: Performed By: #### A1C #### [facility] [address] [place] [address] Dr. Gabby ParkRBC5.39 106/ulNormal4.70-6.10The [facility] HospitalComment on above:Performed By: #### A1C #### [facility] [address] [place] [address] Dr. Gabby ParkWBC4.1 103/ulNormal4.0-11.0The [facility] HospitalComment on above: Performed By: #### A1C #### [facility] [address] [place] [address] Dr. Gabby ParkGLYCOHEMOGLOBIN A1Con 96-17-7968IVL RECOMMENDATIONADA THERAPEUTIC TARGET 6.0 - 7.0 ACTION SUGGESTED > 7.0NormSelect Medical Specialty Hospital - CantonComment on above:Performed By: #### A1C #### [facility] [address] [place] [address] Dr. Gabby ParkGlucose [Mass/Vol]114 mg/dLNoBluffton HospitalComment on above:Performed By: #### A1C #### [facility] [address] [place] [address] Dr. Gabby ParkHbA1c (Bld) [Mass fraction]5.6 %Normal<=6.0[facility] Comment on above:Performed By: #### A1C #### [facility] [address] [address] [address] Gabby CarvalhoID PROFILEon 97-87-2027ZGUE-HDL RATIO NORMSKindred Hospital DaytonComment on above:Result Comment: 3.3 - 4.4 LOW RISK 4.4 - 7.1 AVERAGE RISK 7.1 - 11.0 MODERATE RISK >11.0 HIGH RISKPerformed By: #### CMP, LIPID #### [facility] [address] [address] [address] Gabby ParkCholesterol [Mass/Vol]152 mg/dLNormal<=200[facility] Comment on above:Performed By: #### CMP, LIPID #### [facility] [address] [place] [address] Dr. Gabby ParkCholesterol in HDL [Mass/Vol]47 mg/dLKettering Health Comment on above:Performed By: #### CMP, LIPID #### [facility] [address] [address] [address] Gabby PakrCholesterol in LDL [Mass/Vol]91.0 mg/dLKettering HealthComment on above:Performed By: #### CMP, LIPID #### [facility] [address] [address] [address] Gabby ParkCholesterjackelyn.total/Cholesterol in HDL [Mass ratio]3.2 {ratio} NormalCorey HospitalComment on above:Performed By: #### CMP, LIPID #### [facility] [address] [address] [address] aGbby ParkHDL NORMAL> or = 60 mg/dl - LOW CARDIOVASCULAR RISK <40 mg/dl - HIGH CARDIOVASCULAR RISKKettering HealthComment on above:Performed By: #### CMP, LIPID #### [facility] [address] [address] [address] Gabby ParkLDL CALC NORMALSEE Parkwood HospitalComment on above:Result Comment: <100 mg/dl OPTIMAL 100 - 129 mg/dl NEAR OR ABOVE OPTIMAL 130 - 159 mg/dl BORDERLINE HIGH 160 - 189 mg/dl HIGH >190 mg/dl VERY HIGH Performed By: #### CMP, LIPID #### [facility] [address] [place] [address] Dr. Gabby ParkTriglyceride [Mass/Vol]70 mg/dLNormal<=150The [facility] Comment on above:Performed By: #### CMP, LIPID #### [facility] [address] [place] [address] Dr. Gabby ParkVLDL CALC14.0 mg/dLNormalThe [facility] HospitalComment on above: Performed By: #### CMP, LIPID #### [facility] [address] [place] [address] Dr. Gabby ParkPROF 14(COMP METB)on 62-71-8141Mknrzvv [Mass/Vol]4.2 g/dLNormal 3.5-5.0The [facility] HospitalComment on above:Performed By: #### CMP, LIPID #### [facility] [address] [place] [address] Dr. Gabby ParkAlbumin/Globulin [Mass ratio]1.2 {ratio}NormalThe [facility] HospitalComment on above:Performed By: #### CMP, LIPID #### [facility] [address] [place] [address] Dr. Gabby Arana [Catalytic activity/Vol]51 U/IVynlro07-050Keb [facility] HospitalComment on above:Performed By: #### CMP, LIPID #### [facility] [address] [place] [address] Dr. Gabby Ely [Catalytic activity/Vol]33 U/KKxfiww72-05Sps [facility] HospitalComment on above:Performed By: #### CMP, LIPID #### [facility] [address] [place] [address] Dr. Gabby Srivastava gap [Moles/Vol]11.5 mmol/LNormalThe [facility] Comment on above:Performed By: #### CMP, LIPID #### [facility] [address] [address] [address] Gabby ParkAST [Catalytic activity/Vol]19 U/OYsilwx88-26Kdb [facility] HospitalComment on above:Performed By: #### CMP, LIPID #### [facility] [address] [address] [address] Gabby ParkBilirubin [Mass/Vol]0.6 mg/dLNormal0.2-1.3The [facility] Comment on above:Performed By: #### CMP, LIPID #### [facility] [address] [address] [address] Gabby ParkCalcium [Mass/Vol]9.5 mg/dLNormal8.4-10.2[facility] Comment on above:Performed By: #### CMP, LIPID #### [facility] [address] [place] [address] Dr. Gabby ParkChloride [Moles/Vol]102 mmol/OOsfadz47-640Bcp [facility] Comment on above:Performed By: #### CMP, LIPID #### [facility] [address] [place] [address] Dr. Gabby ParkCO2 [Moles/Vol]31.0 mmol/LCritically high22.0-30.0The [facility] HospitalComment on above:Performed By: #### CMP, LIPID #### [facility] [address] [place] [address] Dr. Gabby ParkCreatinine [Mass/Vol]1.10 mg/dLNormal0.66-1.25The [facility] HospitalComment on above:Performed By: #### CMP, LIPID #### [facility] [address] [place] [address] Dr. Gabby TolentinoGFR-AF INDIAN>60Normal>=60The [facility] HospitalComment on above:Performed By: #### CMP, LIPID #### [facility] [address] [place] [address] Dr. Gabby TolentinoGFR-NON AF INDIAN>60Normal>=60The [facility] HospitalComment on above:Performed By: #### CMP, LIPID #### [facility] [address] [address] [address] Gabby ParkGlobulin (S) [Mass/Vol]3.4 g/dLNormSelect Medical Specialty Hospital - CantonComment on above:Performed By: #### CMP, LIPID #### [facility] [address] [address] [address] Gabby ParkGlucose [Mass/Vol]101 mg/iBLfltep78-571FzfCorey Hospital Comment on above:Performed By: #### CMP, LIPID #### [facility] [address] [address] [address] Gabby ParkPotassium [Moles/Vol]4.5 mmol/LNormal3.4-5.0[facility] Comment on above:Performed By: #### CMP, LIPID #### [facility] [address] [address] [address] Gabby ParkProtein [Mass/Vol]7.6 g/dLNormal6.1-8.2[facility] Comment on above:Performed By: #### CMP, LIPID #### [facility] [address] [address] [address] Gabby ParkSodium [Moles/Vol]140 mmol/IWztgwr438-293TxkCorey Hospital Comment on above:Performed By: #### CMP, LIPID #### [facility] [address] [address] [address] Gabby ParkUrea nitrogen [Mass/Vol]18.0 mg/dLNormal9.0-20.0The [facility] HospitalComment on above:Performed By: #### CMP, LIPID #### [facility] [address] [place] [address] Dr. Gabby Argueta nitrogen/Creatinine [Mass ratio]16.4 mg/mgNoBluffton HospitalComment on above:Performed By: #### CMP, LIPID #### [facility] [address] [address] [address] Gabby Park Vital Signs Date TimeVital SignValuePerforming WcuoornotGxbpfhoi94-07-7061 15:07-0400Body oyoxoi968.3 cmAyariel Grisosm DPM Work Phone: [facility] KirkwoodXypudybnyy58-10-6979 15:07-0400Body mass index (BMI) [Ratio]32.08 kg/w4JhlhxqzModesto Grissom DPM Work Phone: [facility] KirkwoodFiymrbcxqj08-22-5253 15:07-0400Body ndlheb273.33 kgModesto Grissom DPM Work Phone: [facility] KirkwoodIkdlncrazm61-27-6120 08:44-0400Blood Pressure LocationPaYongChek Occipital [facility]05-03-2024 08:44-0400Diastolic blood alvhxocl01 mm[Hg]Swapnil MUIR [facility]05-03-2024 08:44-0400Heart rate82 /minPatrick MUIR [facility]05-03-2024 08:44-0400Respiratory rate16 /minPatrick MUIR [facility]05-03-2024 08:44-0400Systolic blood tlsaaeye087 mm[Hg]Swapnil MUIR [facility]09-01-2023 09:58-0400Blood Pressure LocationPatrick MUIR [facility]09-01-2023 09:58-0400Diastolic blood sbkvicpf55 mm[Hg]Swapnil MUIR [facility]09-01-2023 09:58-0400Heart rate68 /minPatrick MUIR [facility]09-01-2023 09:58-0400Respiratory rate16 /minAlfredmanuela MUIR [facility]09-01-2023 09:58-0400Systolic blood tihxsroz231 mm[Hg]Swapnil MUIR [facility]02-27-2023 10:07-0500Diastolic blood ewclmaoj32 mm[Hg]MD Isaiah Paul Work Phone: [phone] [place], [place] 6293502-27-2023 10:07-0500 Heart rate72 /minMD Isaiah Paul Work Phone: [phone])[facility]-[address] [place], [place] 6293502-27-2023 10:07-0500 Respiratory rate18 /minMD Isaiah Paul Work Phone: [phone])[facility]-[address] [place], [place] 6[address]2-27-2023 10:07-0500 SaO2% (BldA) [Mass fraction]97 %MD Isaiah Paul Work Phone: [phone] [place], [place] 6[address]3502-27-2023 10:07-0500 Systolic blood wbtytkrq884 mm[Hg]MD Isaiah Paul Work Phone: [phone])[facility]-[address] [place], [place] [address]2-27-2023 07:36-0500 Body bddaqh593.34 cmMD Isaiah Paul Work Phone: [phone]-[address] [place], [place] [address]2-27-2023 07:36-0500 Body ybvlakczzre23.4 [degF]MD Isaiah Paul Work Phone: [phone] [place], [place] 6293502-27-2023 07:36-0500 Body viwvad404.05 kgMD Isaiah Paul Work Phone: [phone] [place], [place] 1947708-29-2022 09:18-0400 Blood Pressure LocationPacomfort MUIR [facility]08-29-2022 09:18-0400Diastolic blood avrenzbz24 mm[Hg]Swapnil MUIR [facility]08-29-2022 09:18-0400Heart rate71 /minSwapnil CLINT [facility]08-29-2022 09:18-0400Respiratory rate16 /minBogdancomfort [place] [facility]08-29-2022 09:18-0400Systolic blood pdwetmlb781 mm[Hg]Swapnil MUIR [facility] Encounters Encounter DateEncounter TypeCare ProviderFacilityStart: 30-86-5530loslwhkvbo Swapnil MUIRFacility:EU evueStart: 10-14-2024 End: 92-87-5932nsyqfoknbhKuujjgn R WATERSFacility:EU tart: 10-14-2024 End: 40-49-1519Adauoce encounter procedureSwapnil Tapia MUIR [facility] start: 07-11-2024 End: 33-97-0592Ttmsmpnoe encounterAnthemi Grissom DPM Work Phone: noms PODIATRYComment on above:Advice Only (Recent injection)Start: 06-25-2024 End: 84-09-7732Fzrrob outpatient visit 25 minutesAnthemi Grissom DPM Work Phone: noms PODIATRYComment on above:Plantar fasciitis (Primary Dx); Left foot pain; Equinus contracture of left ankleStart: 06-25-2024 End: 44-31-6555mligllvmviFRUJCUT S RUSHERNot AvailableStart: 06-25-2024 End: 09-46-9589Xrpaph flowsheetAnthony S Rusher DPM Work Phone: noms PODIATRYStart: 06-25-2024 End: 83-93-7931Efheay flowsheetAnthony S Rusher DPM Work Phone: [facility] PODIATRYStart: 13-55-9819ozxanddculApyjpyf R WATERSFacility:EU [facility] HospitalueStart: 07-14-2023 End: 18-21-3385Wcastjz encounter procedurePacomfort MUIR [facility] start: 11-11-2022 End: 84-52-7180Xqsrnyg encounter procedurePatricmanuela MUIR [facility] start: 05-09-2022 End: 15-83-1894vpcmptpllfQtztdaj M HoyFacility:[facility] Start: 05-09-2022 End: 92-50-8060Nwmxdgmxt to same day surgery centerMD Isaiah Anny Work Phone: [facility] Work Phone: Start: 05-09-2022 End: 37-87-0043kmcihggbggYX Isaiah M Hoy Work Phone: [facility] Work Phone: Start: 11-90-7715Zqzxbrmos for general adult medical examination without abnormal findingsDR ISAIAH Carty [facility]Start: 12-17-2021 End: 43-49-1374sffvtauttmBW ISAIAH HOYFacility:H5Girwk: 12-17-2021 End: 74-75-4881Wsfuicsob for general adult medical examination without abnormal findingsDR ISAIAH HOYFacility:J7Uxkyz: 11-08-2021 End: 00-45-1980Qqktclz encounter procedureSwapnil MUIR [facility] start: 11-03-2021 End: 81-35-9554dconjskbwnGX SWAPNIL MUIRFacility:G4Qdetj: 01-29-2021 End: 23-66-7265gcmzqpqsalTO ISAIAH HOYFacility:H1 Procedures DateProcedureProcedure DetailPerforming ClinicianStart: 55-64-5488Oxvdf calcaneus minimum 2 viewsModesto Grissom DPM Work Phone: Start: 71-10-7536Mbbqrguurwv removal of ureteric stent Swapnil MUIR Start: 15-60-6911Ghyjckfvupj laser lithotripsy of ureteric calculusPatrick MUIR Start: 92-57-6269Ebjoelkoc colonoscopyMD Isaiah Hoy Work Phone: Start: 43-68-1188KRC screeningDR ISAIAH HOYComment on above:Performed By: #### PSASC #### [facility] [address] [place] [address] Dr. Gabby ParkStart: 32-61-1310UPH screeningDR ISAIAH HOYComment on above: Performed By: #### A1C #### [facility] [address] [place] [address] Dr. Gabby Ruddart: 26-90-0925HUF screeningDR ISAIAH HOYComment on above: Performed By: #### PSASC #### [facility] [address] [place] [address] Dr. Gabby ParkStart: 41-49-7739Zvimgacumujmwh shockwave lithotripsy of calculus of kidneyPatrick MUIR Start: 65-43-0198Aviqpppydts using laserPatrick Occipital Start: 48-76-2421ObeerafrvzMcbotnc Occipital Hernia repairPatrick Occipital Thumb surgeryPatricChrono Therapeutics Plan of Treatment DateCare ActivityDetailAuthorStart: 06-25-2024 End: 98-52-2914Mwxlsaj encounter ibgccoqls31/15/2025 3:15 PM EDT Office Visit [facility] [address] [place] [address] Modesto Grissom, DPM [address] [place] [id number] ArrivedFERRY COUNTY MEMORIAL HOSPITAL PODIATRYComment on above:ArrivedStart: 71-35-2679ZsxrjjwbdParkview Health Montpelier Hospitaltart: 10-76-5709Wdclgwmyb for malignant neoplasm of [facility] Healthcare Immunizations Immunization DateImmunizationNotesCare RisvrkezNhzdhugc62-65-2785ljlambtbn virus vaccine, unspecified formulationBogdanElectronifie [facility]10-01-2023SARS-CoV-2 (COVID-19) mRNA-1273 vaccineKyElectronifie [facility]09-22-2023SARS-COV-2 (COVID-19) vaccine, mRNA, spike protein, LNP, PF, 50 mcg/0.5 mLModesto Grissom DPM Work Phone: [facility] KirkwoodCmnedhkdgd89-55-7890yxxuidxfz virus vaccine, unspecified formulationKyElectronifie [facility]09-06-2023influenza, injectable, quadrivalent, preservative freeModesto Grissom DPM Work Phone: [facility] KirkwoodRgdwqsdwkm20-11-8230GGHO-PqJ-7 (COVID-19) mRNAMUL.ORD!m93421Syxuvap WATERS [facility]09-11-2022influenza virus vaccine, unspecified formulationBogdanElectronifie [facility]09-11-2022influenza, injectable,quadrivalent, preservative free, pediatricAnthony Rusher DPM Work Phone: [facility] KirkwoodKyfjhllyqj62-21-7351noghmcq toxoid, reduced diphtheria toxoid, and acellular pertussis vaccine, adsorbedPatrick MUIR [facility]04-14-2022SARS-CoV-2 (COVID-19) mRNA-1273 vaccinePatrick MUIR [facility]10-30-2021SARS-CoV-2 (COVID-19) mRNA BNT-162b2 vaxPatrick MUIR [facility]10-07-2021influenza virus vaccine, unspecified formulationPatrick MUIR [facility]10-07-2021influenza, seasonal, injectableAnthony Rusher DPM Work Phone: [facility] KirkwoodEpjpmixjlo45-58-0761KDHX-YtT-2 (COVID-19) mRNA BNT-162b2 vaxPatrick MUIR [facility]03-15-2021SARS-CoV-2 (COVID-19) mRNA BNT-162b2 vaxPatrick MUIR [facility]09-14-2020influenza virus vaccine, unspecified formulationPatrick MUIR [facility]09-14-2020influenza, injectable, quadrivalent, preservative freeAnthony Rusher DPM Work Phone: [facility] KirkwoodUntqgtizes23-17-6872kghwwz vaccine recombinant Swapnil MUIR [facility]01-02-2020zoster vaccine recombinantPatrick MUIR [facility]09-25-2017influenza virus vaccine, H5N1, A/[place] (national stockpile)Modesto Grissom DPM Work Phone: [facility] KirkwoodGaqftsalte58-08-0917bcrlvmfjk virus vaccine, unspecified formulationAnthony Rusher DPM Work Phone: [facility] KirkwoodXhayoqvnqr58-46-2982hbvhsxkkb, unspecified formulationPatrick MUIR [facility]12-30-2015influenza virus vaccine, unspecified formulationPatrick MUIR [facility]12-30-2015influenza, seasonal, injectable, preservative freeAnthony Rusher DPM Work Phone: [facility]woodVfrusmrcmp76-19-3302rgwtmyvha virus vaccine, unspecified formulationPatrick MUIR [facility]11-20-2014influenza, seasonal, injectableAnthony Rusher DPM Work Phone: [facility] Healthcare Payers DatePayer CategoryPayerPolicy [id number] Health Insurance [id number] [id number] 2.84[id number] 2.840.1.981011.3.57[id number] 2.840.1.553904.3.57[id number] 2.16.840.1.304707.3.57[id number] 2.16.840.1.712931.3.57[id number] 2.16.840.1.807583.3.57[id number] 2.16.840.1.432721.3.57[id number] 2.16.840.1.321010.3.57[id number] 2.16.840.1.478495.3.579.2.531 Social History DateTypeDetailFacilityStart: 11-08-2021 End: 87-81-9862Dzytlyn smoking statusNever smoked tobacco (finding)[facility] 01-20-2023 End: 92-09-6183Qrb Assigned At [facility] start: 38-09-6732Jdd [facility]igned At [facility] CenterTobacc smoking statusNeverExec[facility] of [facility] Cent[facility]art: 02-13-2023 End: 14-47-8289Ozapoqxos beverage intakeCurrent drinker of alcohol (finding)[facility] HealthcareStart: 02-13-2023 End: 57-75-9912Xsunogctz beverage intakeNOMS HealthcareHow often to you have a drink containing alcohol?Monthly or lessNOMS HealthcareHow many standard drinks containing alcohol do you have on a typical day?1 or 2[facility] HealthcareStart: 15-55-2884Rrtetaa CommentmonthlyNOOH HealthcareStart: 30-54-6913Wqdhvk identity Identifies as male gender (finding)[facility] HealthcareStart: 74-85-8218Aglfaf orientationHeterosexual (finding)[facility] HealthcareSexual OrientationExec[facility] of [facility] start: 16-22-3113CzvQriz (finding)[facility] Goals DatePatient GoalDesired Activity/State Functional Status RjweRybehlugoiBpcmyrMlcijoca98-54-2530Rzoupsrrti StatusN/AExec[facility] of [facility]09-01-2023Functional StatusN/A[facility]08-29-2022Functional StatusN/A [facility] Clinical Notes 11-08-2021 to 10-14-2024 Note Date & VqfeFfteXkikxqul65-47-1902 Hospital Discharge instructions Patient Education 10/14/2024 15:59:02 24-Hour Urine Collection 24-Hour Urine Collection Why am I having this test? A 24-hour urine specimen is a lab test that requires you to collect all of your urine for an entireday. This is sometimes called a timed urine test. It can provide more information than a single urine sample. There are many reasons to have this test. Your health care provider may order the test to check foror monitor the following conditions: High blood pressure. Kidney disease. Kidney stones. Urinary tract infections. . Diabetes. How do I prepare for this test? You may be asked to follow a special diet during or before the collection period. Follow any instructions from your health care provider. If no special instructions are given, you may eat and drink normally. Take gvjv-edn-cjuupke and prescription medicines only as told by your health care provider. Let your health care provider know about any medicines that you are taking, including hpht-trw-mpssask medicines, vitamins, herbs, and supplements. Choose a collection day when you can be at home or when you have a place to store the urine. All urine must be collected during the testing period. How do I do a 24-hour urine collection? When you get up in the morning, urinate in the toilet and flush. Write down the time. This will be your start time on the day of collection and your end time on the next morning. From the start time on, all of your urine should be kept in the collection jug that you received from the lab. If the jug that is given to you already has liquid in it, that is okay. Do not throw out the liquidor rinse out the jug. Urinate into a specimen container, such as a urinal or bellamy that sits over the toilet. Pour the urine from the container into the collection jug. Be careful not to spill any of the urine. Use the equipment provided by the lab. Do not let any toilet paper or stool (feces) get into the jug. This will contaminate the sample. Stop collecting your urine 24 hours after you started. Collect the last specimen as close as possible to the end of the 24-hour period. Keep the jug cool in an ice chest or keep it in the refrigerator during collection. When the 24-hour collection is complete, take the jug to the lab as soon as possible. Keep the jug cool in an ice chest while you are bringing it to the lab. What do the results mean? Talk with your health care provider about what your results mean. Questions to ask your health care provider Ask your health care provider, or the department that is doing the test: When will my results be ready? How will I get my results? What are my treatment options? What other tests do I need? What are my next steps? Summary A 24-hour urine specimen is a lab test that requires you to collect all of your urine for an entireday. When you get up in the morning, urinate in the toilet and flush. Write down the time. For the next 24 hours, collect all of your urine in the collection jug that you received from the lab. Keep the jug cool while collecting the urine and while bringing it back to the lab. Take the jug of urine back to the lab as soon as possible after the collection period has ended. This information is not intended to replace advice given to you by your health care provider. Make sure you discuss any questions you have with your health care provider. Document Revised: 09/03/2021 Document Reviewed: 09/03/2021 [email or web address] Patient Education 2023 [employer]. Follow Up Care 07/14/2023 09:05:22 With:CLINT TIM, JULISSA Rehman Address: [facility] [address] , [place] [address] [phone] When: Unknown Comments:1 yr w/ 24hr urine [facility] 08-04-2025 NotePatient Education Urology 24-Hour Urine Collection Why am I having this test? A 24-hour urine specimen is a lab test that requires you to collect all of your urine for an entireday. This is sometimes called a timed urine test. It can provide more information than a single urine sample. There are many reasons to have this test. Your health care provider may order the test to check foror monitor the following conditions: ??? High blood pressure. ??? Kidney disease. ??? Kidney stones. ??? Urinary tract infections. ??? . ??? Diabetes. How do I prepare for this test? You may be asked to follow a special diet during or before the collection period. Follow any instructions from your health care provider. If no special instructions are given, you may eat and drink normally. ??? Take tkyb-ipj-uxchavz and prescription medicines only as told by your health care provider. ??? Let your health care provider know about any medicines that you are taking, including ckix-hfx-jqabdfc medicines, vitamins, herbs, and supplements. ??? Choose a collection day when you can be at home or when you have a place to store the urine. All urine must be collected during the testing period. How do I do a 24-hour urine collection? When you get up in the morning, urinate in the toilet and flush. Write down the time. This willbe your start time on the day of collection and your end time on the next morning. ??? From the start time on, all of your urine should be kept in the collection jug that you received from the lab. ??? If the jug that is given to you already has liquid in it, that is okay. Do not throw out the liquid or rinse out the jug. ??? Urinate into a specimen container, such as a urinal or bellamy that sits over the toilet. Pour the urine from the container into the collection jug. Be careful not to spill any of the urine. Use the equipment provided by the lab. ??? Do not let any toilet paper or stool (feces) get into the jug. This will contaminate the sample. ??? Stop collecting your urine 24 hours after you started. Collect the last specimen as close as possible to the end of the 24-hour period. ??? Keep the jug cool in an ice chest or keep it in the refrigerator during collection. ??? When the 24-hour collection is complete, take the jug to the lab as soon as possible. Keep the jug cool in an ice chest while you are bringing it to the lab. What do the results mean? Talk with your health care provider about what your results mean. Questions to ask your health care provider Ask your health care provider, or the department that is doing the test: ??? When will my results be ready? How will I get my results? What are my treatment options? What other tests do I need? What are my next steps? Summary ??? A 24-hour urine specimen is a lab test that requires you to collect all of your urine for an entire day. ??? When you get up in the morning, urinate in the toilet and flush. Write down the time. For the next 24 hours, collect all of your urine in the collection jug that you received from the lab. ??? Keep the jug cool while collecting the urine and while bringing it back to the lab. ??? Take the jug of urine back to the lab as soon as possible after the collection period has ended. This information is not intended to replace advice given to you by your health care provider. Make sure you discuss any questions you have with your health care provider. Document Revised: 09/03/2021 Document Reviewed: 09/03/2021 [email or web address] Patient Education ? 2023 [employer].[facility] 07-12-2024 Telephone encounter Note* Telephone Encounter - Leanna Albarran - 07/12/2024 9:51 AM EDT Called pt back and left a vm to call back with any other questions [facility]woodGirbptukwa07-59-3583 Miscellaneous Notes* Telephone Encounter - Leanna Albarran - 07/12/2024 9:51 AM EDT Called pt back and left a vm to call back with any other questions * Telephone Encounter - Leanna Albarran - 07/11/2024 2:27 PM EDT Patient called stated he was here recently for an injection (06-25-24). He is stilt having foot pain, he wants to know it is to soon to have another or any other recommendations? He is scheduled for 07-16-24 documented in this encounterSaint [facility] KirkwoodBjluhfqrmm36-67-1790 Telephone encounter Note* Telephone Encounter - Leanna Albarran - 07/11/2024 2:27 PM EDT Patient called stated he was here recently for an injection (06-25-24). He is stilt having foot pain, he wants to know it is to soon to have another or any other recommendations? He is scheduled for 07-16-24 [id number] History of Present illness Narrative* Modesto Grissom, DP - 06/25/2024 3:15 PM EDT Images from the original note were not included. Subjective Patient ID: Cj Toure is a 59 y.o. male who presents for Foot Pain (Cj Toure 59yo patient presents with Left foot pain. Patient relates same heel pain as in his history. Last injection 02/2023. Pain started again 01/2024. SS 10.5). HPI Established patient returns to clinic with new concern of pain on the left heel. I have treated himpreviously for plantar fasciitis of the right foot anterior responded well to cortisone injections.His left foot has been bothering him for a few months. Getting worse. Described as sharp, stabbing in nature. He has not initiated any treatment yet. Review of Systems Constitutional: Negative for activity change and appetite change. Respiratory: Negative for chest tightness and shortness of breath. Cardiovascular: Negative for chest pain. Musculoskeletal: Positive for arthralgias and gait problem. Skin: Negative for color change and wound. Neurological: Negative for weakness and numbness. Psychiatric/Behavioral: Negative for agitation and behavioral problems. Hematological: Does not bruise/bleed easily. Endocrine: Negative for cold intolerance and heat intolerance. Allergic/Immunologic: Negative for immunocompromised state. Medications Current Outpatient Medications: Repatha SureClick 140 MG/ML injection, ADMINISTER 1 ML UNDER THE SKIN EVERY 2 WEEKS, Disp: , Rfl: tamsulosin (Flomax) 0.4 MG 24 hr capsule, TAKE 1 CAPSULE EVERY NIGHT AT BEDTIME DAILY, Disp: , Rfl: zolpidem (Ambien) 10 MG tablet, TAKE 1 TABLET BY MOUTH EVERY NIGHT NEEDED FOR INSOMNIA, Disp: , Rfl: No current facility-administered medications for this visit. Allergies Pollen extract Past Surgical History Past Surgical History: Procedure Laterality Date DISTAL BICEPS TENDON REPAIR Right 10/10/2018 Dr Rowell HERNIA REPAIR 1969 KIDNEY STONE SURGERY 2018 KIDNEY STONE SURGERY 11/2022 Family History Family History Problem Relation Name Age of Onset Diabetes Mother Rhiannon Heart disease Mother Rhiannon Cancer Mother Rhiannon Vision loss Mother Rhiannon Diabetes Father Eva Hypertension Father Eva Stroke Father Eva Hearing loss Father Eva Objective Physical Exam HENT: Head: Normocephalic and atraumatic. Cardiovascular: Pulses: Normal pulses. Pulmonary: Effort: Pulmonary effort is normal. No respiratory distress. Abdominal: Palpations: There is no mass. Musculoskeletal: Cervical back: No rigidity. Comments: Weightbearing examination reveals slight planus morphology Left foot: Isolated and maximal tenderness to the medial calcaneal tubercle. Negative heel squeeze test. Muscle strength 5/5 for all quadrants without tenderness. Ankle dorsiflexion 0 degrees with the knee extended, flexed. Skin: Capillary Refill: Capillary refill takes less than 2 seconds. Findings: No lesion or rash. Neurological: Mental Status: He is alert. Comments: No loss of protective sensation, gross sensation intact. Psychiatric: Mood and Affect: Mood normal. Behavior: Behavior normal. XR calcaneus 2 views left Imaging Result: Lateral, calcaneal axial views are weight-bearing. Increased calcaneal inclination. Appears to be maintenance of the medial longitudinal arch. Approximately 1-2 degrees of rearfoot varus. No fractures or dislocations. Assessment/Plan ICD-10-CM 1. Plantar fasciitis M72.2 XR calcaneus 2 views left betamethasone acetate-betamethasone sodium phosphate (Celestone) injection 3 mg triamcinolone acetonide (Kenalog-40) injection 20 mg 2. Left foot pain M79.672 XR calcaneus 2 views left 3. Equinus contracture of left ankle M24.572 Patient was examined and evaluated. Two radiographs of the left foot taken in office and I discussed my findings. Symptoms are consistent with plantar fasciitis. I have treated him for this previously on the right lower extremity. He responded very well to a cortisone injection and after discussingrisks and benefits he would like to move forward with a cortisone injection instead of oral anti-inflammatory regimen. Informed consent was obtained. Utilizing aseptic technique I injected 2 mL of 0.5 percent Marcaine plain, 20 mg of Kenalog and 3 mg of Celestone to the medial calcaneal tubercle, left foot. Patient tolerated the procedure well and a band-aid was applied over the injection site. Ihave recommended 2 Tylenol and 2 Advil every 8 hours as needed for the next day to help reduce any steroid flare reaction. Discussed physical therapy but he prefers home regimen. This program was printed off and given to him today. Complete daily as instructed. Continue to use power step orthotics and avoid barefoot walking. Patient wishes to follow up as needed. This note was created with the assistance of a speech recognition program. While intending to generate a timely document that accurately reflects the content of the visit, no guarantee can be provided that every grammatical or spelling mistake has been or will be identified or corrected. Thank you for your understanding. Modesto Grissom DPM documented in this encounterSaint Joseph Hospital of [id number] Hospital Discharge instructions Patient Education 07/14/2023 08:57:31 Dietary Guidelines to Help Prevent Kidney Stones Dietary Guidelines to Help Prevent Kidney Stones Kidney stones are deposits of minerals and salts that form inside your kidneys. Your risk of developing kidney stones may be greater depending on your diet, your lifestyle, the medicines you take, and whether you have certain medical conditions. Most people can lower their risks of developing kidney stones by following these dietary guidelines. Your dietitian may give you more specific [...] about 300 mg of calcium at each meal.Foods that contain 200 500 mg of calcium a serving include: ?8 oz (237 mL) of milk, khbumku-qxpfqjahiugs-music milk, and calcium- fortifiedfruit juice. Calcium-fortified means that calcium has been [...] the table and allow each person to addtheir own salt to taste. Use vegetable protein, such as beans, textured vegetable protein (TVP), or tofu, instead of meat inpasta, casseroles, and soups. Meal planning Eat less salt, if told by your dietitian. To do this: ?Avoid eating processed or pre-made food. ?Avoid eating fast food. Eat less animal protein, including cheese, meat, poultry, or fish, if told by your dietitian. To dothis: ?Limit the number of times you have meat, poultry, fish, or cheese each week. Eat a diet free of meat at least 2 days a week. ?Eat only one serving each day of meat, poultry, fish, or seafood. ?When you prepare animal proteins, cut pieces into small portion sizes. For most meat and fish, oneserving is about the size of the palm of your hand. Eat at least five servings of fresh fruits and vegetables each day. To do this: ?Keep fruits and vegetables on hand for snacks. ?Eat one piece of fruit or a handful of berries with breakfast. ?Have a salad and fruit at lunch. ?Have two kinds of vegetables at dinner. You may be told to limit foods that are high in a substance called oxalate. These include: ?Spinach (cooked), rhubarb, beets, sweet potatoes, and Kyrgyz chard. ?Peanuts. ?Potato chips, argentine fries, and baked potatoes with skin on. ?Nuts and nut products. ?Chocolate. If you regularly take a diuretic medicine, make sure to eat at least 1 or 2 servings of fruits or vegetables that are high in potassium each day. These include: ?Avocado. ?Banana. ?[place], prune, carrot, or tomato juice. ?Baked potato. ?Cabbage. ?Beans and split peas. Lifestyle Drink enough fluid to keep your urine pale yellow. This is the most important thing you can do. Spread your fluid intake throughout the day. If you drink alcohol: ?Limit how much you have to: ?0 1 drink a day for women who are not . ?0 2 drinks a day for men. ?Know how much alcohol is in your drink. [...] provider and dietitian about taking daily supplements. Depending on your health and the cause of your kidney stones, you may be told: ?Do not take high-dose supplements of vitamin C (1,000 mg a day or more). ?To take a calcium supplement. ?To take a daily probiotic supplement. ?To take other supplements such as magnesium, fish oil, or vitamin B6. Take wfqm-axt-zcbwdoj and prescription medicines only as told by [...] sausages, meat loaves, and hot dogs. Dairy Cheeses. Beverages Regular soft drinks. Regular vegetable juice. Seasonings and condiments Seasoning blends with salt. Salad dressings. Soy sauce. Ketchup. Barbecue sauce. Other foods Canned soups. Canned pasta sauce. Casseroles. Pizza. Lasagna. Frozen meals. Potato chips. Ukrainian fries. The items listed above may not be a complete list of foods and beverages you should limit. Contact a dietitian for more information. What foods should I avoid? Talk to your dietitian about specific foods you should avoid based on the type of kidney stones youhave and your overall health. Fruits Grapefruit. The item listed above may not be a complete list of foods and beverages you should avoid. Contact adietitian for more information. Summary Kidney stones are [...] with your health care provider. Document Revised: 06/09/2022 Document Reviewed: 06/09/2022 [employer] Patient Education 2022 [employer]. Follow Up Care 01/19/2023 14:05:46 With:CLINT TIM, Swapnil Tapia, URL Address: [address] [place] [address] [place] [address]- When: Unknown [facility] 09-01-2023 Hospital Discharge instructions Patient Education 11/11/2022 10:41:30 [...] about 300 mg of calcium at each meal.Foods that contain 200 500 mg of calcium a serving include: ?8 oz (237 mL) of milk, zjruidu-gxupwzskknqk-ghyaj milk, and calcium- fortifiedfruit juice. Calcium-fortified means that calcium has been [...] the table and allow each person to addhis or her own salt to taste. Use vegetable protein, such as beans, textured vegetable protein (TVP), or tofu, instead of meat inpasta, casseroles, and soups. Meal planning Eat less salt, if told by your dietitian. To do this: ?Avoid eating processed or pre-made food. ?Avoid eating fast food. Eat less animal protein, including cheese, meat, poultry, or fish, if told by your dietitian. To dothis: ?Limit the number of times you have [...] ?Spinach (cooked), rhubarb, beets, sweet potatoes, and Kyrgyz chard. ?Peanuts. ?Potato chips, argentine fries, and baked potatoes with skin on. ?Nuts and nut products. ?Chocolate. If you regularly take a diuretic medicine, make sure to eat at least 1 or 2 servings of fruits or vegetables that are high in potassium each day. These include: ?Avocado. ?Banana. ?Edgefield, prune, carrot, or tomato juice. ?Baked potato. [...] taking daily supplements. You may be told thefollowing depending on your health and the cause of your kidney stones: ?Not to take supplements with vitamin C. ?To take a calcium supplement. ?To take a daily probiotic supplement. ?To take other supplements such as magnesium, fish oil, or vitamin B6. Take xgul-xow-wczfpsr and prescription medicines only as told by [...] Casseroles. Pizza. Lasagna. Frozen meals. Potato chips. Ukrainian fries. The items listed above may not be a complete list of foods and beverages you should limit. Contact a dietitian for more information. What foods should I avoid? Talk to your dietitian about specific foods you should avoid based on the type of kidney stones youhave and your overall health. Fruits Grapefruit. The item listed above may not be a complete list of foods and beverages you should avoid. Contact adietitian for more information. Summary Kidney stones are [...] provider. Document Revised: 11/08/2021 Document Reviewed: 11/08/2021 [email or web address] Patient Education 2022 [employer]. Follow Up Care 11/08/2021 09:58:05 With:CLINT TIM, Swapnil Tapia, URL Address: [facility] [address] , [place] [address]- When:Within 1 Year(s) Comments:w/ MANOJ [facility] 02-27-2023 Procedure [facility]08-29-2022 Hospital Discharge instructions Patient Education 11/08/2021 09:27:37 Benign Prostatic Hyperplasia Benign Prostatic Hyperplasia Benign prostatic hyperplasia (BPH) is an enlarged prostate gland that is caused by the normal agingprocess and not by cancer. The prostate is [...] urethra. Follow these instructions at home: Take rmlz-mos-xglhgvz and prescription medicines only as told by [...] 02/27/2006 Document Revised: 01/22/2019 Document Reviewed: 04/03/2017 [email or web address] Patient Education 2020 [employer]. Follow Up Care 09/28/2020 09:43:43 With:Swapnil MUIR MD, URL Address: [address] [place], [place] [id number]- When:Within 1 Year(s) [facility] evaluation + Plan note Future Appointments Appointment Date:11/11/2022 09:30:00 AM Scheduled Provider:Swapnil MUIR MD Location:[facility] Appointment Type:URO Office Visit Diagnostic Tests Pending * PSA Total 09/10/22 [facility] evaluation + Plan note Future Appointments Appointment Date:11/17/2023 09:30:00 AM Scheduled Provider:Swapnil MUIR MD Location:[facility] Appointment Type:URO Office Visit Diagnostic Tests Pending * PSA Total 11/11/22 * Creatinine 11/11/22 * BUN 11/11/22 [facility] evaluation + Plan note Future Appointments Appointment Date:07/19/2024 08:30:00 AM Scheduled Provider:Swapnil MUIR MD Location:[facility] Appointment Type:URO Office Visit Diagnostic Tests Pending * PSA Total 04/13/24 [facility] evaluation + Plan note Future Appointments Appointment Date:10/20/2025 03:15:00 PM Scheduled Provider:Swapnil MUIR MD Location:[facility] Appointment Type:URO Office Visit Diagnostic Tests Pending * PSA Total 10/14/24 [facility] Evaluation note* Diagnosis Onset Date Resolution Status Encounter for screening colonoscopy [facility] Work Phone: Evaluation note* Diagnosis Plantar fasciitis- Primary Plantar fascial fibromatosis Left foot pain Pain in soft tissues of limb Equinus contracture of left ankle [facility] Narrative No data available for this section [facility] Discharge instructions Additional Instructions DISCHARGE INSTRUCTIONS [...] if you have any problems. -Office number [phone] Work Phone: Progress note No data available for this section [facility] Summary Purpose Family History No Family History Records Found Relationship Condition Age at Onset Recorded Date/T maya Not Specified Diabetes mellitus Unknown Heart diseaseUnknownsisterMalignant neoplasm of lungUnknown Advance Directives No Advanced Directives Records Found Advance Directive Response Recorded Date/ Time Advance Directives No April 10:03am Chief Complaint and Reason for Visit Chief Complaint Screening Reason for Visit Encounter for screen ing colonoscopy Additional Source Comments Care Team (unrecognized sect ion and content) Team Status: Inactive Member Role Status Dates Cuong Reddy MD Attending Provider Active Néstor Peters Care ProviderActive Team Status: Active Member Role Status Dates Isaiah Paul MD Primary Care Provider Active Team MemberRelationshipSpecialtyStart DateEnd Date Isaiah Paul MD [address] [place] [address] PCP - [facility]01/23/23Te MemberRelationshipSpecialtyStart Date End Date Isaiah Paul MD [address] [place] [address] PCP - [facility]01/23/23Te MemberRelationshipSpecialtyStart Date End Date Isaiah Paul MD [address] [place] [address] PCP - [facility]01/23/23 (unrecognized sect ion and content) No Status Records FoundNo Status Records FoundNo Status Records FoundNo Status Records Found INFORMATION SOURCE (unrecogn ized section and content) DATE CREATED AUTHOR 12/21/2021 [facility] DATE CREATED AUTHOR AUTHOR'S ORGANIZ ATION 05/13/2022 [facility] DATE CREATED AUTHOR AUTHOR'S ORGANIZ ATION 06/27/2024 [facility] EPIC DATE CREATED AUTHOR AUTHOR'S ORGANIZ ATION 10/16/2024 [facility] Reason for Visit (unrecogniz ed section and content) ReasonCommentsFoot PainKevin Kuns 59yo patient presents with Left foot pain. Patient relates same heel pain as in his history. Last injection 02/2023. Pain started again 01/2024. SS 10.5ReasonOnset DateCommentsAdvice Only07/11/2024 Recent injection FOR RECORDS PERTAINING TO PATIENTS WHO ARE [...] BE BASED ON THE PRIMARY CLINICAL RECORDS. [email or web address]. provides no warranty or guarantee of the accuracy or completeness of information in this document.
[2025-01-03 10:09] LABS: Hematocrit 48.9 % (42.0-54.0); Hemoglobin 16.9 g/dL (14.0-18.0); Immature Granulocytes Abs Auto 0.01 10^3/uL (0.00-0.03); Immature Granulocytes Pct Auto 0.2 % (0.0-0.5); Lymphocytes Absolute Auto 1.1 10^3/uL (1.2-3.8); Mean Corpuscular HGB Conc 34.6 g/dL (29.9-35.2); Mean Corpuscular Hemoglobin 30.0 pg (25.9-34.0); Mean Corpuscular Volume 86.7 fL (80.0-94.0); Platelet Count 196 10^3/uL (150-450); Red Blood Count 5.64 10^6/uL (4.70-6.10); White Blood Count 4.3 10^3/uL (4.0-11.0)
[2025-01-03 11:40] LABS: Alanine Aminotransferase 44 U/L (16-63); Albumin Globulin Ratio 1.4; Albumin Level 4.2 g/dL (3.4-5.0); Alkaline Phosphatase 52 U/L (46-116); Anion Gap 12.8; Aspartate Amino Transferase 21 U/L (15-37); Blood Urea Nitrogen 13.0 mg/dL (7.0-18.0); Calcium 9.3 mg/dL (8.5-10.1); Carbon Dioxide 30.3 mmol/L (21.0-32.0); Chloride 103 mmol/L (98-107); Cholesterol 163 mg/dL (<=200); Estimated GFR (African America >60 (>=60 mL/min/1.73m^2); Estimated GFR (Non-African Ame >60 (>=60 mL/min/1.73m^2); Free T3 2.85 pg/mL (2.18-3.98); Globulin 3.1 g/dL; Glucose 102 mg/dL (74-106); HDL Cholesterol 47 mg/dL (40-60); Potassium 4.1 mmol/L (3.5-5.1); Sodium 142 mmol/L (136-145); Thyroid Stimulating Hormone 2.959 uIU/mL (0.358-3.740); Total Protein 7.3 g/dL (6.4-8.2); Triglycerides 76 mg/dL (<=150); VLDL CHOLESTEROL 15.2 mg/dL
== END 2025-01-03 09:28 | disposition home or self-care (01) ==
LOC: LAB 09:28
PROVIDERS: PCP Family Medicine; Visit Provider Family Medicine
DX: Z00.00 Encounter for general adult medical examination without abnormal findings (principal); R00.1 Bradycardia, unspecified; E66.3 Overweight; R00.2 Palpitations; G47.00 Insomnia, unspecified; R53.83 Other fatigue
CPT/HCPCS: 36415; 80053; 80061; 82306; 83036; 83525; 84403; 84436; 84443; 84481; 85025; G0103; G0328